=== PATIENT | male | born 1955 | race African-American/Black ===

== ENCOUNTER 2023-11-15 18:36 | Inpatient (IN) | payer MEDICARE, SELFPAY ==
[2023-11-15] VITALS (10 sets, daily range): BP systolic 114–134; BP diastolic 75–95; BMI 27.1
--- NOTE | 2023-11-15 14:45 | ED.GENMED ---
History of Present Illness
<Susan Hernández PA-C - Last Filed: 11/15/23 19:02>
General
Chief Complaint: Swelling
Source: patient
Exam Limitations: none
Time Seen by Provider: 11/15/23 14:19
Nursing documentation reviewed up to this point in time: agreed with
History of Present Illness
History of Present Illness:
Patient is a 68-year-old male presenting from [facility] for evaluation of progressively worsening abdominal distention over the past few weeks with associated shortness of breath. Patient denies any chest pain, fevers, chills. However he does
state that abdominal distention is bothersome and 'enough is enough'. Patient denies any nausea, vomiting, diarrhea, or constipation. No urinary symptoms. No fevers or chills.
Patient typically on approximately 2 L of oxygen via nasal cannula.
Patient does report a recent change in diuretic to torsemide. It appears that he takes 100 mg daily.
Review of Systems
<Susan Hernández PA-C - Last Filed: 11/15/23 19:02>
Review of Systems
Allergies reviewed?: Yes
All Other Systems: ROS reviewed and negative except as documented in HPI and ROS
Phy Exam
<Susan Hernández PA-C - Last Filed: 11/15/23 19:02>
Physical Exam
Physical Exam:
Vitals: Patient's vital signs are stable. Hypoxia requiring 4 L nasal cannula
General: Patient is well appearing, no acute distress.
Skin: Warm and dry, no rashes or lesions
Head: Normocephalic, atraumatic
Eyes: Sclera nonicteric. EOMs intact. No nystagmus.
Throat: Protecting airway
Neck: Normal ROM, no cervical spine tenderness, no meningismus. No JVD
Cardiac: Regular rate and rhythm, no murmurs.
Pulm: In no apparent respiratory distress. O2 saturation 96 on 4 L nasal cannula. Diminished breath sounds at b/l bases.
Abdomen: Moderate abdominal distention. Diffuse mild tenderness. No rebound tenderness or guarding.
Extremities: 1+ pitting edema of right lower extremity. Distal pulses intact to right lower extremity. Left lower extremity with BKA
Neuro: Grossly intact.
Psychiatric: Normal affect.
Scores
<Susan Hernández PA-C - Last Filed: 11/15/23 19:02>
Heart Failure Risk
Heart Failure Risk Score: Yes
History of Stroke or TIA: No
History of intubation for respiratory distress: No
Heart rate on ED arrival >/= 110: No
SaO2 <90% on arrival on room air: Yes
HR >/=110 during 3min walk test (or too ill to perform test): No
ECG has acute ischemic changes: No
Urea >/=12mmol/L (BUN 33.6mg/dL): Yes
Serum CO2>/=35mmol/L: No
Troponin I or T elevated to WA Level (0.4mg/dL): No
NT-proBNP >/=5,000ng/L (5,000pg/ml): Yes
HF Risk Score: 3
Admission Status: HIGH RISK 15.9% Consider SNF treatment or admission to hospital
Course
<Susan Hernández PA-C - Last Filed: 11/15/23 19:02>
Orders/Labs/Results
Orders:
Orders
11/15/23 14:41
Electrocardiogram (*1) Urgent
Reason for Study: Shortness of Breath
EKG- Treatment ONCE
CR Chest - 2 Views Urgent
Comment: hx CHF, abdominal distention
Reason For Exam: shortness of breath
US Abdomen Complete/Upper Urgent
Comment:
Reason For Exam: abdominal distention
11/15/23 15:07
Complete Blood Count/With Diff Urgent
Comprehensive Metabolic Panel Urgent
NT-proBNP Urgent
Troponin I Urgent
11/15/23 17:06
Aspirin Chewable [Low Strength Aspirin] 324 mg PO NOW STA
Furosemide [Lasix] 40 mg IV NOW STA
11/15/23 18:07
Admit/Transfer Patient As Directed
Co-Sign Provider:
Level of Care: Inpatient admission
Assign to:: Telemetry
Physician / Group: Philippe
Diagnosis: CHF
Reason for Telemetry: Acute Heart Failure
Date to Stop Telemetry: 11/18/23
Time to Stop Telemetry: 11:00
Reason for Hospitalization: IV diuretics, Paracentesis
Expected length of stay greater than two midnights?: Yes
ELOS- Estimated Length of Stay in days: 4
I certify the patient meets the requirements for IP care: Yes
PRN Pain Medication Management As Directed
May give lesser potent ordered pain med per pt: Yes
preference::
Protocol:: Medication orders for pain may be administered in a
manner that supports deferring to patient preference
when the pt is:
- Requesting an ordered lesser potent pain medication.
Least to most potent pain medications are defined
as: acetaminophen < NSAID < tramadol < opioids
(morphine, oxycodone, hydromorphone).
- Requesting a lesser dose of the same medication IF
ORDERED.
- Requesting a less intrusive route of administration
if both routes are prescribed by the provider (PO <
IV).
11/15/23 18:10
Code Status As Directed
Resuscitation Status: Do not resuscitate
Reached after discussion with pt or family/Healthcare POA: Yes
11/15/23 18:11
DNR Bracelet Application ONCE
11/15/23 22:00
Potassium Routine
Troponin I Q8H
11/16/23 06:00
Troponin I Q8H
11/18/23 11:00
DC Protocol for Telemetry ONCE
Abnormal Lab Results
11/15/23
15:07
RBC 4.04 L 10^6/uL
(4.70-6.10)
Hgb 10.6 L g/dL
(13.0-18.0)
Hct 35.8 L %
(39.0-52.0)
MCH 26.2 L pg
(27.0-31.0)
MCHC 29.6 L g/dL
(33.0-37.0)
RDW 18.9 H %
(11.5-14.5)
Plt Count 123 L 10^3/uL
(130-400)
MPV 11.4 H fL
(7.4-10.4)
Absolute Lymphs (auto) 0.7 L 10^3/uL
(1.2-3.4)
Neutrophils % 76.8 H %
(42.2-75.2)
Lymphocytes % 11.0 L %
(20.5-51.1)
Potassium 5.8 H mmol/L
(3.5-5.1)
BUN 82 H mg/dl
(9-20)
Creatinine 1.7 H mg/dL
(0.7-1.3)
Alkaline Phosphatase 387 H U/L
(38-126)
Troponin I 0.035 H* ng/ml
11/15/23 15:07
11/15/23 15:07
Vital Signs
Initial and Last Documented VS:
Initial Vital Signs
Temp Pulse Resp BP Pulse Ox
97.9 F 77 16 131/95 96
11/15/23 13:16 11/15/23 13:16 11/15/23 13:16 11/15/23 13:16 11/15/23 13:16
Last Documented Vital Signs
Temp Pulse Resp BP Pulse Ox
97.9 F 77 16 122/84 96
11/15/23 13:16 11/15/23 13:16 11/15/23 13:16 11/15/23 18:11 11/15/23 13:16
<Chelsie Her MD - Last Filed: 11/15/23 17:07>
Orders/Labs/Results
Orders:
Orders
11/15/23 14:41
Electrocardiogram (*1) Urgent
Reason for Study: Shortness of Breath
EKG- Treatment ONCE
CR Chest - 2 Views Urgent
Comment: hx CHF, abdominal distention
Reason For Exam: shortness of breath
US Abdomen Complete/Upper Urgent
Comment:
Reason For Exam: abdominal distention
11/15/23 15:07
Complete Blood Count/With Diff Urgent
Comprehensive Metabolic Panel Urgent
NT-proBNP Urgent
Troponin I Urgent
11/15/23 17:06
Aspirin Chewable [Low Strength Aspirin] 324 mg PO NOW STA
Furosemide [Lasix] 40 mg IV NOW STA
11/15/23 18:07
Admit/Transfer Patient As Directed
Co-Sign Provider:
Level of Care: Inpatient admission
Assign to:: Telemetry
Physician / Group: Philippe
Diagnosis: CHF
Reason for Telemetry: Acute Heart Failure
Date to Stop Telemetry: 11/18/23
Time to Stop Telemetry: 11:00
Reason for Hospitalization: IV diuretics, Paracentesis
Expected length of stay greater than two midnights?: Yes
ELOS- Estimated Length of Stay in days: 4
I certify the patient meets the requirements for IP care: Yes
PRN Pain Medication Management As Directed
May give lesser potent ordered pain med per pt: Yes
preference::
Protocol:: Medication orders for pain may be administered in a
manner that supports deferring to patient preference
when the pt is:
- Requesting an ordered lesser potent pain medication.
Least to most potent pain medications are defined
as: acetaminophen < NSAID < tramadol < opioids
(morphine, oxycodone, hydromorphone).
- Requesting a lesser dose of the same medication IF
ORDERED.
- Requesting a less intrusive route of administration
if both routes are prescribed by the provider (PO <
IV).
11/15/23 18:10
Code Status As Directed
Resuscitation Status: Do not resuscitate
Reached after discussion with pt or family/Healthcare POA: Yes
11/15/23 18:11
DNR Bracelet Application ONCE
11/15/23 22:00
Potassium Routine
Troponin I Q8H
11/16/23 06:00
Troponin I Q8H
11/18/23 11:00
DC Protocol for Telemetry ONCE
Abnormal Lab Results
11/15/23
15:07
RBC 4.04 L 10^6/uL
(4.70-6.10)
Hgb 10.6 L g/dL
(13.0-18.0)
Hct 35.8 L %
(39.0-52.0)
MCH 26.2 L pg
(27.0-31.0)
MCHC 29.6 L g/dL
(33.0-37.0)
RDW 18.9 H %
(11.5-14.5)
Plt Count 123 L 10^3/uL
(130-400)
MPV 11.4 H fL
(7.4-10.4)
Absolute Lymphs (auto) 0.7 L 10^3/uL
(1.2-3.4)
Neutrophils % 76.8 H %
(42.2-75.2)
Lymphocytes % 11.0 L %
(20.5-51.1)
Potassium 5.8 H mmol/L
(3.5-5.1)
BUN 82 H mg/dl
(9-20)
Creatinine 1.7 H mg/dL
(0.7-1.3)
Alkaline Phosphatase 387 H U/L
(38-126)
Troponin I 0.035 H* ng/ml
11/15/23 15:07
11/15/23 15:07
Vital Signs
Initial and Last Documented VS:
Initial Vital Signs
Temp Pulse Resp BP Pulse Ox
97.9 F 77 16 131/95 96
11/15/23 13:16 11/15/23 13:16 11/15/23 13:16 11/15/23 13:16 11/15/23 13:16
Last Documented Vital Signs
Temp Pulse Resp BP Pulse Ox
97.9 F 77 16 122/84 96
11/15/23 13:16 11/15/23 13:16 11/15/23 13:16 11/15/23 18:11 11/15/23 13:16
<Susan Hernández PA-C - Last Filed: 11/15/23 19:02>
MDM/Problems Addressed
Differential Diagnosis Includes:
Not limited to: CHF, cirrhosis, cardiac arrhythmia, anemia, dehydration, pneumonia, bronchitis, doubt ACS
MDM/Problems Addressed:
68-year-old male with history as documented presenting with progressively worsening abdominal distention associated with shortness of breath over the past few weeks. No fever, chills or infectious symptoms. No exertional chest pain. Does have
history of CHF and on 2 L O2 at home, [facility]. Recent switch in diuretic from Lasix to torsemide. Patient requiring 4 L nasal cannula on arrival to emergency department increased from baseline. Otherwise vital signs are stable. Physical
exam as above. He does have pitting edema in his right lower extremity with great distal pulses. Moderate distention of abdomen. Lung sounds slightly diminished at the bases although appears in no apparent respiratory distress. Heart regular
rate and rhythm. EKG obtained to triage shows no acute ischemic changes.
Labs reviewed. Mild anemia with a hemoglobin of 10.6�no comparison. Creatinine of 1.7. Initial troponin was elevated to 0.035. BNP greater than 27,000. Chest x-ray shows mild CHF with left-sided pleural effusion. Diffuse abdominal ascites seen
on abdominal ultrasound. Suspect ascites likely related to heart failure as patient has no history of liver disease. May require paracentesis. Given patient's clinical fluid overload, hypoxia with increased oxygen requirement suspect likely acute
CHF exacerbation. Will diurese with 40 mg IV Lasix given mild renal insufficiency noted. 324 aspirin were given given patient's elevated Trope although do not suspect ACS. Will admit to hospitalist for further evaluation/fluid management.
Patient discussed with hospitalist and accepted to their service. Patient seen with attending physician.
Chronic conditions affecting care:
CHF, CAD, diabetes
Acute Exacerbation and/or Progression of Chronic Illness:
Acute CHF exacerbation with increased O2 requirement
<Susan Hernández PA-C - Last Filed: 11/15/23 19:02>
*Radiology
Radiology exam reviewed: preliminary read by ED provider and radiology read reviewed (Mild CHF)
*Pulse Oximetry
Patient hypoxic: yes
Comment: On 4 L NC
*EKG
Interpreted by ED Provider?: Yes
EKG Intrepretation Date: 11/15/23
Interpretation: abnormal
Comparison EKG: no comparison EKG present
Heart Rate: 68
Rate: normal
Rhythm: sinus
Interval: first degree heart block
QRS Pattern: low voltage
Ischemia: non-specific ST changes
*Negotiations Director Interpretation
Rate: normal
Interpretation: normal
Heart Rate: 80
Rhythm: sinus
*Critical Care Note
Total Time (30-74mins, 75-104mins- exclusive of procedures): Not Applicable
<Susan Hernández PA-C - Last Filed: 11/15/23 19:02>
Patient Management
Discussion with other providers: Hospitalist
Escalation/DeEscalation of care consider admission/obs:
Admit for diuresis/further management of fluid status may require paracentesis
ED Attending Note
<Susan Hernández PA-C - Last Filed: 11/15/23 19:02>
-
Portions of this chart may have been created with voice recognition software.� Occasional wrong word or��sound alike� substitutions may have occurred due to the inherent limitations of voice recognition software.
<Chelsie Her MD - Last Filed: 11/15/23 17:07>
ED Attending Note
Patient seen and examined by attending physician: Yes
I performed the substantive portion of visit, reviewed & personally made and approve the management plan that is documented in note by myself or ZEESHAN.: Yes
ED Attending Note:
68-year-old male with gradual increasing abdominal distention and fullness over the past few weeks making it now hard for him to take a deep breath because of the volume. He has noted to have an increasing oxygen requirement. He denies abdominal
pain and abdomen soft and nontender. Patient has obvious lower extremity edema, and noted here to have an elevated BNP and troponin, no priors for comparison. No history of liver disease noted, ascites likely related to his heart failure. Reports
recent change in his diuretic dose. No acute ischemia noted on ECG. Recommend admission, management with diuresis May need paracentesis, etc.
Discharge Plan
Departure
Patient Disposition: Admit
Date of Disposition: 11/15/23
Time of Disposition: 17:07
Presentation/result/management discussed w/ accepting MD/DO: Hospitalist
Discharge Problem:
Acute CHF (congestive heart failure), Hypoxia
Interventions
Interventions:
*Risk Screen - Suicide Last Done: 11/15/23 13:16
*General Assessment Last Done: 11/15/23 13:16
*Neglect/Abuse Screening Last Done: 11/15/23 13:16
*ED COVID-19 Vaccine History Last Done: 11/15/23 13:25
[2023-11-15 15:29] LABS: % Basophils 0.7 % (0-2); % Eosinophils 1.9 % (0-6); % Immature Granulocytes 0.3 % (0-0.5); % Monocytes 9.3 % (1.7-9.3); % Neutrophils 76.8 % (42.2-75.2); Absolute Eosinophils 0.1 10^3/uL (0-0.7); Absolute Lymphocytes 0.7 10^3/uL (1.2-3.4); Absolute Monocytes 0.6 10^3/uL (0.1-0.6); Absolute Neutrophils 4.5 10^3/uL (1.4-6.5); Hematocrit 35.8 % (39.0-52.0); Hemoglobin 10.6 g/dL (13.0-18.0); Mean Corp Hgb Conc. 29.6 g/dL (33.0-37.0); Mean Corpuscular Hgb 26.2 pg (27.0-31.0); Mean Corpuscular Volume 88.6 fL (80.0-94.0); Mean Platelet Volume 11.4 fL (7.4-10.4); Nucleated Red Blood Cells % 0 % (-); Platelet Count 123 10^3/uL (130-400); Red Blood Cell Count 4.04 10^6/uL (4.70-6.10); Red Cell Dist. Width 18.9 % (11.5-14.5); White Blood Cell Count 5.9 10^3/uL (4.8-10.8)
[2023-11-15 15:54] LABS: NT-proBNP > 27000 pg/ml; Troponin I 0.035 ng/ml
[2023-11-15 16:16] LABS: ALT (SGPT) 17 U/L (0-50); AST (SGOT) 39 U/L (17-59); Albumin 3.9 g/dl (3.5-5.0); Alkaline Phosphatase 387 U/L (38-126); Blood Urea Nitrogen 82 mg/dl (9-20); Calcium 8.9 mg/dl (8.4-10.2); Carbon Dioxide 29 mmol/L (22-30); Chloride 104 mmol/L (98-107); Estimated Creatinine Clearance 41 ml/min; Glucose 72 mg/dl (70-99); Potassium 5.8 mmol/L (3.5-5.1); Sodium 143 mmol/L (135-145); Total Bilirubin 1.1 mg/dl (0.2-1.3); Total Protein 7.2 g/dl (6.3-8.2)
--- NOTE | 2023-11-15 17:16 | W.PN.UPDATE ---
Addendum entered and electronically signed by Lisa Paez MD 11/15/23 18:37:
BGL 72 in ER, will hold pre-meal insulin for now and give lower lantus dose this evening - adjust as needed during hospital stay
Original Note:
Update Note
Progress Note Update
This is an addendum to H&P written by NII Isbell
I saw and examined the patient.
The GUT SORTER's note was reviewed and I agree with the note.
Comment:
Mr. Wale Espinosa is a 68 yo man with hx HF, CAD, HLD, CKD, ex-smoker, GERD, left BKA, IDDM presents to the ER with bloating.
Triage VS: T 97.9, P 77, RR 16, BP 131/95, SpO2 96%
LABS: WBC 5.9, Hg 10.6, PLT 123, Na 143, K+ 5.8, Cr 1.7, Glucose 72, T. Bili 1.1, AST 39, ALT 17, Alk Phos 387, Trop 0.035
BNP > 47453
On exam patient is frail appearing and tachypneic, + JVP, decreased breath sounds. Left BKA. RLE with venous stasis discoloration. + blind.
Abdomen US:
IMPRESSION:
1. Cholelithiasis without convincing sonographic evidence for acute cholecystitis. Consider further evaluation with HIDA scan if there is high clinical concern.
2. Moderate diffuse abdominopelvic ascites.
CXR
IMPRESSION:
Mild CHF with small to moderate left pleural effusion and associated probable atelectasis.
MAR: asa 324mg PO x 1, Lasix 40mg IV x 1
Heart Failure, Unknown EF
-He is on Torsemide 60 qAM; 40qPM at home
-admit to telemetry
-s/p Lasix 40mg IV in ER, likely needs higher dose. PA to check on output later this evening and possibly give additional
-lasix 80mg IV BID starting tomorrow
-TTE
-Cardiology consult
-fluid restriction, low Na diet
CKD
-expect creatinine at baseline
Hyperkalemia
-should improve with Lasix, repeat this evening
-low K diet
Ascites
-IR consult for paracentesis; follow up fluid analysis
IDDM
-TERRAZZO JOURNEYMAN insulin
DNR
--- NOTE | 2023-11-15 18:07 | HPS.HSE ---
Family Physician
-
Family Physician: Hai Sorensen
Chief Complaint
-
Increasing Abdominal Distention
History of Present Illness
Pt is a 68 yo M with PMH CHF (unknown type), CAD, DM, and CKD from [facility] c/o increased abdominal swelling x 5 weeks. Pt reports increased abdominal swelling attributed to CHF. He reports weight change from 140 to 190 lbs and states
his condition is getting worse every day- 'it's uncomfortable','enough is enough', and 'doesn't want to do this anymore'. Pt reports he was previously on furosemide and switched to torsemide roughly 1 week ago. He notes increased urination but no
significant change in weight. He does not follow low Na diet or fluid restriction. He states he recently changed drinking orange/apple juice to vegetable juice at breakfast. He reports paracentesis performed last year removed 6.5 quarts of fluid. He
also reports increasing SOB x 1.5 wks when he weighed about 165lbs. He denies fever, chest pain, palpitations, and cough.
Medical History
Past Medical History
Past Medical History: Reports Other
Additional Past Medical History:
Coronary Artery Disease
Peripheral Vascular Disease
Cardiomyopathy
Congestive Heart Failure
Essential Hypertension
Hyperlipidemia
Diabetes Mellitus, Type II
CKD Stage IIIB
Chronic Anemia
GERD
Past Surgical History: Reports Other
Additional Past Surgical History:
Left BKA
Social History
Tobacco: Non-smoker
Alcohol: None
Living: Longterm
Family History
Family History: Not pertinent
Allergies / Home Medications
Allergies reflects when Allergies were last updated in [employer].
Home Medications with original date entered in [employer]
Allergy/Medication List:
Allergies
Allergy/AdvReac Type Severity Reaction Status Date / Time
No Known Allergies Allergy Unverified 11/15/23 13:15
Home Medications
acetaminophen 325 mg tablet 650 mg PO Q6HPRN PRN mild pain 11/15/23
atorvastatin 20 mg tablet 20 mg PO DAILY 11/15/23
bisacodyl 10 mg rectal suppository (Dulcolax (bisacodyl)) 10 mg NM DAILYPRN PRN no bm after mom 11/15/23
cholecalciferol (vitamin D3) 25 mcg (1,000 unit) tablet (Vitamin D3) 25 mcg PO DAILY 11/15/23
diclofenac sodium 1 % topical gel 2 g topical DAILY 11/15/23
docusate sodium 100 mg capsule (Colace) 100 mg PO DAILY 11/15/23
ferrous sulfate 325 mg (65 mg iron) tablet 325 mg PO DAILY 11/15/23
insulin aspart (niacinamide) (U-100) 100 unit/mL subcutaneous solution (Fiasp U-100 Insulin) 8 unit SC MEALS 11/15/23
insulin glargine 100 unit/mL (3 mL) subcutaneous pen (Basaglar KwikPen U-100 Insulin) 10 unit SC HS 11/15/23
magnesium hydroxide 400 mg/5 mL oral suspension (Milk of Magnesia) 30 ml PO [id number] PRN no bm 3 days 11/15/23
melatonin 3 mg tablet 3 mg PO HS 11/15/23
metoprolol succinate 25 mg tablet,extended release 24 hr 25 mg PO DAILY 11/15/23
omeprazole 20 mg capsule,delayed release 20 mg PO DAILY 11/15/23
povidone-iodine 10 % topical solution (Betadine) 1 applic topical DAILY R 2nd toe 11/15/23
sennosides 8.6 mg-docusate sodium 50 mg tablet 2 tab-cap PO HS 11/15/23
sodium phosphates 19 gram-7 gram/118 mL enema (Fleet Enema) 118 ml NM DAILYPRN PRN if no bm after dulcolax 11/15/23
torsemide 20 mg tablet 40 mg PO QPM 11/15/23
torsemide 20 mg tablet 60 mg PO DAILY 11/15/23
trazodone 100 mg tablet 100 mg PO HS 11/15/23
trazodone 50 mg tablet 25 mg PO HS 11/15/23
Review of Systems
-
A 12 point ROS was completed and negative except as noted: Yes
Constitutional: Denies Fever or Chills
Respiratory: Reports Trouble Breathing
Cardiac: Denies Chest Pain or Palpitations
Abdomen/GI: Denies Abdominal Pain, Nausea, Vomiting or Diarrhea
Physical Exam
Vital Signs
Vital Signs
Temp Pulse Resp BP Pulse Ox
97.9 F 77 16 131/95 96
11/15/23 13:16 11/15/23 13:16 11/15/23 13:16 11/15/23 13:16 11/15/23 13:16
Physical Exam
General: Comfortable and Conversant
HEENT: Anicteric and Moist mucous membranes
Respiratory: Non Labored Respirations and Other (Decreased breath sounds bilateral bases)
Cardiac: S1/S2 and Regular Rhythm; No Murmur
GI: Soft, Non Tender and Distended
Rectal: Deferred by Provider
Musculoskeletal: No Clubbing, No Cyanosis and Other (Left BKA)
Skin: Warm and Dry
Neuro: Awake, Alert, Oriented and Nonfocal/grossly intact
Psych: Calm
Laboratory Results
-
11/15/23 15:07
Laboratory Results
Total Bilirubin 1.1 mg/dl (0.2-1.3) 11/15/23 15:07
AST 39 U/L (17-59) 11/15/23 15:07
ALT 17 U/L (0-50) 11/15/23 15:07
Alkaline Phosphatase 387 U/L (38-126) H 11/15/23 15:07
Troponin I 0.035 ng/ml H* 11/15/23 15:07
Chest X-Ray:
Mild CHF with small to moderate left pleural effusion and associated probable atelectasis.
Abd Us:
Moderate diffuse abdominopelvic ascites.
Cholelithiasis without convincing sonographic evidence for acute cholecystitis.
Data Reviewed
-
Diagnostic Radiology: Report Reviewed by me
Medical Tests (Nuc Med, Echo, EKG etc): Report Reviewed by me
Lab Data: Labs Reviewed by me
Impression/Plan
-
Acute on Chronic Heart Failure, unknown type
-Consult Cardiology
-Check Echo
-Continue Lasix 80mg IV BID
-Continue low sodium diet with fluid restriction
-Monitor Is&Os and Daily Weights
Elevated Troponin, likely Non-Ischemic Myocardial Injury in setting of heart failure
-Continue to trend troponin
Ascites, likely secondary to heart failure
-Consult IR for paracentesis
Hyperkalemia
-Continue Lasix
-Continue low potassium diet
-Recheck potassium level later this evening
Coronary Artery Disease
Peripheral Vascular Disease s/p Left BKa
-Continue Aspirin
Essential Hypertension
-Continue metoprolol
Hyperlipidemia
-Continue atorvastatin
Diabetes Mellitus, Type II
-Continue Basaglar and Insulin Aspart
-Monitor sugars and continue coverage insulin
CKD Stage IIIB
-Suspect Creatinine is at baseline
-Monitor Creatinine closely while on diuretics
Chronic Anemia
-Continue iron supplement
Insomnia
-Continue Trazodone and Melatonin
GERD
-Continue Protonix
DVT proph: SC Heparin
Code Status: DNR
[2023-11-15] MEDS: LASIX 40 MG IV (18:11)
--- NOTE | 2023-11-15 20:15 | SUR.OPER ---
Patient arrived from ED via stretcher. Pulled over onto the bed by staff. AAOx3, VSS. 96% on 3L O2. Patient incontinent of urine. Oriented to the room and list of medications. Call danielle is within reach.
[2023-11-15 21:32] LABS: Glucose - Point of Care 89 mg/dl (70-99)
[2023-11-15] MEDS: SENOKOT-S 1 TABLET PO (22:05)
[2023-11-15] MEDS: MELATONIN 3 MG PO (22:05)
[2023-11-15] MEDS: DESYREL 25 MG PO (22:05)
[2023-11-15] MEDS: DESYREL 100 MG PO (22:05)
[2023-11-15] MEDS: LANTUS SC (22:05)
[2023-11-15] MEDS: TYLENOL 650 MG PO (22:07)
[2023-11-15] MEDS: HEPARIN 5000 UNITS SC (23:00)
[2023-11-16] VITALS (8 sets, daily range): BP systolic 58–121; BP diastolic 65–77; BMI 27.1
[2023-11-16 00:11] LABS: Potassium 5.6 mmol/L (3.5-5.1)
[2023-11-16 00:13] LABS: Troponin I 0.039 ng/ml
[2023-11-16] MEDS: LOKELMA 10 GRAM PO (00:50)
[2023-11-16] MEDS: TYLENOL 1000 MG PO (04:30)
[2023-11-16] MEDS: DICLOFENAC 1% TOPICAL GEL 100 GRAM TOPICAL (04:30)
[2023-11-16 05:20] LABS: INR 1.32; PT 16.2 Sec (11.4-14.6)
[2023-11-16 05:30] LABS: Blood Urea Nitrogen 82 mg/dl (9-20); Calcium 8.6 mg/dl (8.4-10.2); Carbon Dioxide 32 mmol/L (22-30); Chloride 104 mmol/L (98-107); Estimated Creatinine Clearance 44 ml/min; Glucose 90 mg/dl (70-99); HDL Cholesterol 62 mg/dl; Iron 44 ug/dl (49-181); LDL Cholesterol, Calculated 35 mg/dl; Magnesium 2.5 mg/dl (1.6-2.3); Phosphorus 4.6 mg/dl (2.5-4.5); Sodium 144 mmol/L (135-145); Total Cholesterol 112 mg/dl (50-199); Triglyceride 78 mg/dl (10-149); Very Low Density Lipoprotein 15 mg/dl (0-30); eGFR 46.35
[2023-11-16 05:33] LABS: Troponin I 0.032 ng/ml
[2023-11-16 05:38] LABS: Percent Saturation 22 % (20-50); Total Iron Binding Capacity 199 ug/dl (261-462)
[2023-11-16 05:40] LABS: Potassium 5.3 mmol/L (3.5-5.1)
[2023-11-16 05:44] LABS: Hematocrit 35.8 % (39.0-52.0); Hemoglobin 10.6 g/dL (13.0-18.0); Mean Corp Hgb Conc. 29.6 g/dL (33.0-37.0); Mean Corpuscular Volume 91.3 fL (80.0-94.0); Red Blood Cell Count 3.92 10^6/uL (4.70-6.10); Red Cell Dist. Width 18.8 % (11.5-14.5); White Blood Cell Count 5.1 10^3/uL (4.8-10.8)
[2023-11-16 05:53] LABS: TSH Reflex To Free T4 0.75 uIU/ml (0.47-4.68)
[2023-11-16 06:28] LABS: Folate 6.8 ng/ml (2.76-20); Vitamin B12 950 pg/ml (239-931)
[2023-11-16 06:47] LABS: Mean Platelet Volume 9.9 fL (7.4-10.4); Platelet Count 91 10^3/uL (130-400)
[2023-11-16] MEDS: COLACE 100 MG PO (09:11)
[2023-11-16] MEDS: FEOSOL 325 MG PO (09:13)
[2023-11-16] MEDS: TOPROL XL 25 MG PO (09:13)
[2023-11-16] MEDS: ASPIR LOW (ENTERIC COATED) 81 MG PO (09:13)
[2023-11-16] MEDS: LIPITOR 20 MG PO (09:13)
[2023-11-16 09:14] LABS: Glucose - Point of Care 77 mg/dl (70-99)
[2023-11-16] MEDS: VITAMIN D3 (cholecalciferol) 25 MCG PO (09:14)
[2023-11-16] MEDS: NOVOLOG FLEXPEN-LOW RESISTANCE SC ×2 (09:14→12:56)
[2023-11-16] MEDS: HEPARIN 5000 UNITS SC ×3 (09:14→21:29)
[2023-11-16] MEDS: TYLENOL 650 MG PO ×2 (09:16→22:46)
--- NOTE | 2023-11-16 09:18 | W.PN.HOSP.TC ---
Today's Communication/Plan
-
diuresis
TTE
Cardiology consult
Assessment / Plan
Assessment / Plan
Mr. Wale Espinosa is a 68 yo man with hx HF, CAD, HLD, CKD, ex-smoker, GERD, left BKA, IDDM presents to the ER with fluid overload, admitted for CHF exacerbation.
Abdomen US:
IMPRESSION:
1. Cholelithiasis without convincing sonographic evidence for acute cholecystitis. Consider further evaluation with HIDA scan if there is high clinical concern.
2. Moderate diffuse abdominopelvic ascites.
CXR
IMPRESSION:
Mild CHF with small to moderate left pleural effusion and associated probable atelectasis.
Acute on Chronic Heart Failure, unknown type
-Consult Cardiology
-Check Echo
-Continue Lasix - patient with good response to 40 --> will continue this dosing
-Continue low sodium diet with fluid restriction
-Monitor Is&Os and Daily Weights
Elevated Troponin, likely Non-Ischemic Myocardial Injury in setting of heart failure
-peaked at 0.039
Ascites, likely secondary to heart failure
-Consult IR for paracentesis
Hyperkalemia
-Continue Lasix
-Continue low potassium diet
-improving with lasix
Coronary Artery Disease
Peripheral Vascular Disease s/p Left BKa
-Continue Aspirin
Essential Hypertension
-Continue metoprolol
Hyperlipidemia
-Continue atorvastatin
Diabetes Mellitus, Type II
-hold pre-meal (glucose 90 this AM)
-lower dose Lantus
CKD Stage IIIB
-Suspect Creatinine is at baseline
-Monitor Creatinine closely while on diuretics
Chronic Anemia
-Continue iron supplement
Insomnia
-Continue Trazodone and Melatonin
GERD
-Continue Protonix
DVT proph: SC Heparin
Code Status: DNR
Anticipated Discharge: > 48 hours
Subjective/Interval History
-
Date of Service: November 16, 2023
feeling better
more alert today
urinated a lot overnight per RN
Objective Data
-
Labs:
Laboratory Results
11/15/23 11/16/23
23:35 04:23
WBC 5.1
Hgb 10.6 L
Hct 35.8 L
Plt Count 91 L D
PT 16.2 H
INR 1.32
Sodium 144
Potassium 5.6 H 5.3 H
Chloride 104
Carbon Dioxide 32 H
BUN 82 H
Creatinine 1.6 H
Glucose 90
Calcium 8.6
Vital Signs:
Vital Signs
Temp Pulse Resp BP Pulse Ox
96.3 F L 69 20 121/70 97
11/16/23 07:16 11/16/23 07:16 11/16/23 07:16 11/16/23 07:16 11/16/23 07:16
I&O
11/15/23 11/16/23 11/17/23
06:59 06:59 06:59
Intake Total 530 / 530
Balance 530 / 530
Review of Systems
-
History Source: Patient
All other systems: Reviewed and negative
Physical Exam
-
General: No Apparent Distress
HEENT: Other (blind)
Respiratory: Rales
Cardiac: Regular Rhythm and S1/S2
GI: Soft and Nontender
Musculoskeletal: Other (left BKD)
Skin: Warm and Dry; Negative Rash
Neuro: AO x 3
Psych: Calm
Data Reviewed
-
Diagnostic Radiology: Report Reviewed by me
Labs: Labs Reviewed by me
--- NOTE | 2023-11-16 09:29 | CON.CAR ---
Addendum entered and electronically signed by Faisal Yadav MD 11/16/23 16:04:
I saw and examined the patient.
The PGY2 note was reviewed and I agree with the note.
Primary dough panner is at [facility]
68-year-old with history of coronary artery disease, cardiomyopathy, CHF, peripheral arterial disease, left BKA, diabetes, CKD, hypertension patient presents with shortness of breath. Apparently send increased shortness of breath over a 5-week
time. He has also had increased abdominal distention and weight gain. Patient admitted to the hospital service. Noted to have ascites also with left pleural effusion. He is undergone paracentesis with removal of significant volume and
significant improvement in his shortness of breath. Patient states that he had to have paracentesis in the past but last one was many years ago. He has been taking diuretics as an outpatient recently Lasix was changed to torsemide 1 week ago but
no improvement of symptoms. Other extent of his heart disease is unclear. Patient does not provide that much of a detailed account of his history and no prior records available.
#Shortness of breath. May be multifactorial. Patient has a prior history of CHF which may be contributing but patient also has significant ascites. Although heart failure can contribute to ascites would also consider other causes as well.
Patient's had significant proved and after paracentesis
-Continue diuresis with IV Lasix
-Echocardiogram
-Obtain additional records from previous outpatient dough panner
-Continue to monitor left pleural effusion.
# Ascites.-Patient post paracentesis. Additional evaluation of progress. Also will be of helpful to obtain additional old records since it sounds as if he has had paracentesis in the past
# Pleural effusion. Monitor with diuresis.
# CKD. Creatinine 1.6-1.7. Continue to monitor with diuretic.
# CAD. No symptoms to suggest angina. Patient with prior history of CAD. Will obtain additional records
Original Note:
Consultation
Consultation Request
Date/Time Consultation Requested: 11/15/2023
Date/Time Consultation Performed: 11/16/2023
Performing Provider: Dr Yadav
Reason for Consultation: CHF
Medical History
-
Chief Complaint: Abdominal swelling, shortness of breath
History of Present Illness:
Mr Jesús Echevarria is a 68y/o male who presented to ED yesterday complaining of increased abdominal swelling ongoing for the past 5 weeks. Patient reports he was previously on furosemide and was switched to torsemide 1 week ago. He has noted
changes in his weight and increased urination since the switch. Patient reports ongoing shortness of breath for the past 2 weeks. Reports shortness of breath has been worsening at rest and with exertion. He denies chest pain, he denies fever, he
denies chills, he denies palpitations. Patient reports paracentesis performed a total of 2 times in the past 10 years with the most recent tap in 2009 removing 6 quarts of fluid. Evaluation with a chest x-ray on presentation to the ED showed mild
CHF with small to moderate left pleural effusion. Abdominal ultrasound evaluation showed moderate diffuse abdominal pelvic ascites. proBNP >14476, troponin 0.035.
Past Medical History
Past Medical History: Other (CAD, PVD, cardiomyopathy, CHF, essential hypertension, hyperlipidemia, type II DM, CKD stage IIIb, chronic anemia, GERD)
Past Surgical History: Other
Social History
Alcohol: None
Living: Prison
Family History
Family History: Reviewed & Not Pertinent
Allergies / Home Medications
Allergy/AdvReac Type Severity Reaction Status Date / Time
No Known Allergies Allergy Unverified 11/15/23 13:15
�Medication �Instructions �Recorded �Confirmed �Type
acetaminophen 325 mg tablet 650 mg PO Q6HPRN PRN mild pain 11/15/23 11/15/23 History
atorvastatin 20 mg tablet 20 mg PO DAILY 11/15/23 11/15/23 History
bisacodyl 10 mg rectal suppository 10 mg MA DAILYPRN PRN no bm after 11/15/23 11/15/23 History
(Dulcolax (bisacodyl)) mom
cholecalciferol (vitamin D3) 25 25 mcg PO DAILY 11/15/23 11/15/23 History
mcg (1,000 unit) tablet (Vitamin
D3)
diclofenac sodium 1 % topical gel 2 g topical DAILY 11/15/23 11/15/23 History
docusate sodium 100 mg capsule 100 mg PO DAILY 11/15/23 11/15/23 History
(Colace)
ferrous sulfate 325 mg (65 mg 325 mg PO DAILY 11/15/23 11/15/23 History
iron) tablet
insulin aspart (niacinamide) 8 unit SC MEALS 11/15/23 11/15/23 History
(U-100) 100 unit/mL subcutaneous
solution (Fiasp U-100 Insulin)
insulin glargine 100 unit/mL (3 10 unit SC HS 11/15/23 11/15/23 History
mL) subcutaneous pen (Basaglar
KwikPen U-100 Insulin)
magnesium hydroxide 400 mg/5 mL 30 ml PO [id number] PRN no bm 3 days 11/15/23 11/15/23 History
oral suspension (Milk of Magnesia)
melatonin 3 mg tablet 3 mg PO HS 11/15/23 11/15/23 History
metoprolol succinate 25 mg 25 mg PO DAILY 11/15/23 11/15/23 History
tablet,extended release 24 hr
omeprazole 20 mg capsule,delayed 20 mg PO DAILY 11/15/23 11/15/23 History
release
povidone-iodine 10 % topical 1 applic topical DAILY R 2nd toe 11/15/23 11/15/23 History
solution (Betadine)
sennosides 8.6 mg-docusate sodium 2 tab-cap PO HS 11/15/23 11/15/23 History
50 mg tablet
sodium phosphates 19 gram-7 118 ml MA DAILYPRN PRN if no bm 11/15/23 11/15/23 History
gram/118 mL enema (Fleet Enema) after dulcolax
torsemide 20 mg tablet 40 mg PO QPM 11/15/23 11/15/23 History
torsemide 20 mg tablet 60 mg PO DAILY 11/15/23 11/15/23 History
trazodone 100 mg tablet 100 mg PO HS 11/15/23 11/15/23 History
trazodone 50 mg tablet 25 mg PO HS 11/15/23 11/15/23 History
Review of Systems
-
All other systems: Negative unless noted
Physical Exam
Vital Signs
Temp Pulse Resp BP Pulse Ox
96.3 F L 69 20 121/70 97
11/16/23 07:16 11/16/23 07:16 11/16/23 07:16 11/16/23 07:16 11/16/23 07:16
Lab Results
11/16/23 04:23
11/16/23 04:23
Troponin I 0.032 ng/ml 11/16/23 04:23
Jdc-G-Rnbrnuybuzj Pept > 45118 pg/ml 11/15/23 15:07
Physical Exam
General: No Apparent Distress
HEENT: Other (Left-sided complete blindness, right-sided partial blindness)
Respiratory: Crackles (Mild)
Cardiac: S1/S2 and Regular Rhythm; Negative Murmur
Musculoskeletal: Other (Left sided below the knee amputation)
Skin: Warm and Dry
Neuro: Awake, Alert, Oriented and AO x 3
Impression / Plan
-
Impression/plan
Acute CHF, unknown EF
-Diuresis with IV Lasix
-Echo pending
-Will request for records from current dough panner at [facility]
-Monitor I's and O's, daily weights
CAD
History of PVD s/p left-sided below-knee amputation
-Continue aspirin
Essential hypertension
-Continue on metoprolol XL
Ascites
-Paracentesis
-Management per primary team
[2023-11-16] MEDS: LASIX 40 MG IV ×2 (09:56→17:17)
[2023-11-16 12:50] LABS: Body Fluid Mononuclear 81.9 %; Body Fluid Polymorphonuclear 18.1 %; Body Fluid WBC 94 /CUMM
[2023-11-16 12:53] LABS: Glucose - Point of Care 88 mg/dl (70-99)
[2023-11-16 13:04] LABS: Body Fluid Albumin 2.2 g/dl; Body Fluid Amylase 60 U/L; Body Fluid LDH 183 U/L; Body Fluid Protein 4.4 g/dl; Body Fluid Second Tech AMA
--- NOTE | 2023-11-16 16:01 | CM ---
Addendum entered by Annette Ramírez 11/17/23 15:27:
Advance Directive form left at bedside; no family present today and have not been able to speak with anyone. [facility] [place] advised that they have a POLST form on his chart.
Original Note:
CM made several attempts today to discuss AD; pt has been off the floor for testing most of the day. He just returned and no family is present. Will f/u in AM.
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
CM will continue to follow; plan to follow up with Wale and family tomorrow to discuss advance directive.
[2023-11-16 17:08] LABS: Glucose - Point of Care 169 mg/dl (70-99)
[2023-11-16] MEDS: NOVOLOG FLEXPEN-LOW RESISTANCE 1 UNITS SC (18:00)
[2023-11-16 21:14] LABS: Glucose - Point of Care 126 mg/dl (70-99)
[2023-11-16] MEDS: MELATONIN 3 MG PO (21:28)
[2023-11-16] MEDS: DESYREL 100 MG PO (21:28)
[2023-11-16] MEDS: DESYREL 25 MG PO (21:28)
[2023-11-16] MEDS: SENOKOT-S PO (21:33)
[2023-11-16] MEDS: LANTUS 0.06 UNITS SC (21:38)
[2023-11-17] VITALS (8 sets, daily range): BP systolic 99–117; BP diastolic 56–77; PULSE 68; O2SAT 95; BMI 25.5
[2023-11-17 04:24] LABS: Glucose - Point of Care 95 mg/dl (70-99)
[2023-11-17 07:57] LABS: Blood Urea Nitrogen 81 mg/dl (9-20); Calcium 8.2 mg/dl (8.4-10.2); Carbon Dioxide 32 mmol/L (22-30); Chloride 102 mmol/L (98-107); Estimated Creatinine Clearance 41 ml/min; Glucose 108 mg/dl (70-99); Potassium 5.2 mmol/L (3.5-5.1); Sodium 140 mmol/L (135-145)
[2023-11-17 08:10] LABS: Glucose - Point of Care 111 mg/dl (70-99)
[2023-11-17] MEDS: NOVOLOG FLEXPEN-LOW RESISTANCE SC (08:14)
[2023-11-17] MEDS: LIPITOR 20 MG PO (08:57)
[2023-11-17] MEDS: VITAMIN D3 (cholecalciferol) 25 MCG PO (08:57)
[2023-11-17] MEDS: FEOSOL 325 MG PO (08:57)
[2023-11-17] MEDS: TOPROL XL 25 MG PO (08:57)
[2023-11-17] MEDS: COLACE 100 MG PO (08:57)
[2023-11-17] MEDS: ASPIR LOW (ENTERIC COATED) 81 MG PO (08:57)
[2023-11-17] MEDS: TYLENOL 650 MG PO ×2 (08:57→22:49)
[2023-11-17] MEDS: LASIX 40 MG IV ×2 (08:58→16:10)
[2023-11-17] MEDS: HEPARIN 5000 UNITS SC ×3 (08:58→23:00)
--- NOTE | 2023-11-17 09:07 | W.PN.CD ---
Addendum entered and electronically signed by Faisal Yadav MD 11/17/23 13:24:
I saw and examined the patient.
FT PGY2 note was reviewed and I agree with the note.
Patient comfortable. Clearly feels better after paracentesis. Weight is down. Unclear how much output he is actually having. Respiratory status has improved after paracentesis. Echocardiogram shows severely reduced left ventricular function
with an ejection fraction of 20 to 25%. In discussion with patient he has been told in the past that he has reduced left ventricular function does not know details regarding prior ejection fraction.
Awaiting additional records from his primary regional sales associate at [facility].
Original Note:
Today's Communication / Plan
-
.
Impression / Plan
-
Impression/plan
Acute CHF, unknown EF
-Diuresis with IV Lasix
-Echo 11/16/2023 LV ejection fraction is 20-25%. Severely reduced left ventricular systolic function.
-Will request for records from current regional sales associate at [facility]
-Monitor I's and O's, daily weights
CAD
History of PVD s/p left-sided below-knee amputation
No symptoms to suggest angina.
-Continue aspirin
Ascites
-s/p paracentesis 11/15. Additional evaluation SAAG >1.1
-Obtain old records to review paracentesis done in the past.
Pleural effusion.
- Monitor with diuresis.
Physical Exam
Vital Signs/Labs
Vital Signs
Temp Pulse Resp BP Pulse Ox
97.6 F 65 22 116/67 98
11/17/23 07:47 11/17/23 07:47 11/17/23 07:47 11/17/23 07:47 11/17/23 07:47
11/16/23 11/17/23 11/18/23
06:59 06:59 06:59
Actual Weight 83.14 kg 78.335 kg
11/16/23 04:23
11/17/23 06:19
PT 16.2 Sec (11.4-14.6) H 11/16/23 04:23
INR 1.32 11/16/23 04:23
Magnesium 2.5 mg/dl (1.6-2.3) H 11/16/23 04:23
Triglycerides 78 mg/dl (10-149) 11/16/23 04:23
LDL Cholesterol, Calc 35 mg/dl 11/16/23 04:23
VLDL Cholesterol, Calc 15 mg/dl (0-30) 11/16/23 04:23
HDL Cholesterol 62 mg/dl 11/16/23 04:23
11/15/23
15:07
Mxr-A-Aawcfzikbzg Pept > 28908
LAB Results
11/15/23 11/15/23 11/16/23
15:07 23:35 04:23
Troponin I 0.035 H* 0.039 H* 0.032
Physical Exam
Constitutional: No acute distress
Cardiovascular: Rhythm & rate is regular and S1S2 is normal
Neuro/Psych: Alert, Oriented and AO x 3
Data Reviewed
-
Date of Service: November 17, 2023
--- NOTE | 2023-11-17 09:15 | VATNOTE ---
Patient complained of right IV pain. flushed line and is working properly. Removed it per request and placed a new iv in the left arm. Rt arm is cold to touch and 2/5 swelling- primary RN aware.
[2023-11-17 12:01] LABS: Glucose - Point of Care 170 mg/dl (70-99)
--- NOTE | 2023-11-17 12:19 | W.PN.HOSP.TC ---
Today's Communication/Plan
-
Continue IV diuretics
Continue fluid and sodium restricted diet
Wean oxygen as possible
Consider palliative care
Assessment / Plan
Assessment / Plan
#Acute on chronic HFrEF -- suspect ischemic cardiomyopathy based off of comorbidities
-TTE here showed LVEF 20%, signs of significant pulmonary hypertension as well
-Home GDMT with beta-cale, full GDMT limited by renal function and hypotension
-Home diuretic regimen includes torsemide 40 mg nightly and 60 mg in the day
-Suspect that he was not compliant with fluid and salt restriction as outpatient
-Started on IV Lasix 40 mg twice daily, I's/O's not accurately tracked
-States that he feels significantly better today
-Warm and wet phenotype
Plan
-Continue with Lasix 40 mg twice daily IV; monitor I's and O's, daily weights
-Continue with current GDMT, consider SGLT2i if renal function would permit
-Continue with dietary restriction of sodium and fluid
-Continue with telemetry
-Supplemental oxygen, SpO2 goal >90%
-Cards recommendations appreciated
#Hyperkalemia
-Likely related to reduced renal perfusion from heart failure, possible noncompliance with diuretics
-Potassium level has improved with low potassium diet and IV Lasix course
-Continue Lasix for heart failure and trend daily BMP as above
#Ascites -- secondary to heart failure, s/p fluid studies
-Paracentesis yesterday with 4 L of fluid removed, received albumin following
-Will continue to monitor for reaccumulation though would expect diuretics to help
#Elevated Troponin
-likely Non-Ischemic Myocardial Injury in setting of heart failure
-Troponin trending presentation not consistent with ACS
-peaked at 0.039
#Coronary Artery Disease
#Peripheral Vascular Disease s/p Left BKA
#Dyslipidemia
-No known history of cardiac stents though does seem to have vasculopathic phenotype
-Her medications include aspirin, only moderate intensity statin rhythm now
-Clinically stable, no signs of ACS or CLI today
# H/O hypertension
-Home medications include metoprolol succinate, torsemide; not on first-line agent
-Seems at this time that hypotension is more of an issue and has limited his GDMT
#Diabetes Mellitus, Type II
-Home regimen includes Lantus, aspart insulin, moderate intensity statin
-Upon arrival had borderline low blood glucose levels, Lantus was decreased
-Sliding scale insulin with Accu-Cheks added for additional coverage when needed
-Glucose goal for hospitalization 160�200
#CKD Stage IIIB
-Appears that his baseline creatinine is around 1.6-1.7, presented at that range
-Suspect is associated with chronic anemia, no acidemia or known bone mineral disease
-Will continue to monitor renal function on IV diuretic course as above
#Chronic Anemia
-Suspect multifactorial with kidney disease, element of SLICK as well
-Remains on home iron supplementation
-CBC stable, no signs of bleeding
#GERD
-No known history of Mayorga's esophagus or erosive disease, no recent EGD
-Stable on home regimen including Protonix
#Insomnia
-Continue Trazodone and Melatonin
DVT proph: SC Heparin
Diet: Sodium and fluid restricted
Code Status: DNR, may consider palliative care for GOC
Anticipated Discharge: > 48 hours
Subjective/Interval History
-
Date of Service: November 17, 2023
Seen and examined at the bedside. No acute events overnight.
He remains hemodynamically stable, afebrile, and on 3 L of supplemental oxygen with SpO2 high 90s.
He denies any acute complaints such as chest pain, shortness of breath, fevers or chills, nausea, vomiting, diarrhea, urinary issues, abnormal bleeding or bruising, paresthesias or weakness
Objective Data
-
Labs:
Laboratory Results
11/17/23
06:19
Sodium 140
Potassium 5.2 H
Chloride 102
Carbon Dioxide 32 H
BUN 81 H
Creatinine 1.7 H
Glucose 108 H
Calcium 8.2 L
Vital Signs:
Vital Signs
Temp Pulse Resp BP Pulse Ox
97.3 F 68 22 114/71 95
11/17/23 11:32 11/17/23 11:32 11/17/23 11:32 11/17/23 11:32 11/17/23 11:32
I&O
11/16/23 11/17/23 11/18/23
06:59 06:59 06:59
Intake Total 530 / 530 720 / 720
Balance 530 / 530 720 / 720
Review of Systems
-
History Source: Patient
All other systems: Reviewed and negative
Physical Exam
-
General: Well Nourished, No Apparent Distress and Comfortable; Negative Respiratory Distress
HEENT: Normocephalic, Atraumatic, Moist Mucous Membranes and Anicteric
Respiratory: Non Labored Respirations and Decreased Breath Sounds (Bases bilaterally); Negative Wheezes, Rales or Rhonchi
Cardiac: Regular Rhythm, S1/S2 and JVD; Negative Murmur, Rub or Gallop
GI: Soft, Nontender, Nondistended and Normal Bowel Sounds
Musculoskeletal: No Clubbing, No Cyanosis and Other (2+ pitting edema to lower extremity; left BKA)
Skin: Warm and Dry; Negative Rash or Jaundice
Neuro: AO x 3, Nonfocal/Grossly Intact and Central Nerve's Intact
Data Reviewed
-
Labs: Labs Reviewed by me and Discussed with Patient
[2023-11-17] MEDS: NOVOLOG FLEXPEN-LOW RESISTANCE 1 UNITS SC (12:40)
[2023-11-17 16:57] LABS: Glucose - Point of Care 211 mg/dl (70-99)
[2023-11-17] MEDS: NOVOLOG FLEXPEN-LOW RESISTANCE 2 UNITS SC (17:41)
[2023-11-17 21:31] LABS: Glucose - Point of Care 193 mg/dl (70-99)
[2023-11-17] MEDS: DESYREL 100 MG PO (21:52)
[2023-11-17] MEDS: DESYREL 25 MG PO (21:52)
[2023-11-17] MEDS: LANTUS 0.06 UNITS SC (21:52)
[2023-11-17] MEDS: MELATONIN 3 MG PO (21:53)
[2023-11-17] MEDS: SENOKOT-S PO (22:02)
[2023-11-18 03:48] VITALS: BP 118/72
[2023-11-18 04:23] VITALS: BMI 25.6
[2023-11-18 07:06] LABS: Glucose - Point of Care 98 mg/dl (70-99)
[2023-11-18 07:10] VITALS: BP 116/67
[2023-11-18 07:17] LABS: % Basophils 0.4 % (0-2); % Eosinophils 3.1 % (0-6); % Immature Granulocytes 0.4 % (0-0.5); % Monocytes 10.1 % (1.7-9.3); Absolute Eosinophils 0.2 10^3/uL (0-0.7); Absolute Lymphocytes 0.7 10^3/uL (1.2-3.4); Absolute Monocytes 0.5 10^3/uL (0.1-0.6); Absolute Neutrophils 3.4 10^3/uL (1.4-6.5); Hematocrit 34.3 % (39.0-52.0); Hemoglobin 10.3 g/dL (13.0-18.0); Mean Corpuscular Hgb 26.8 pg (27.0-31.0); Mean Corpuscular Volume 89.3 fL (80.0-94.0); Nucleated Red Blood Cells % 0 % (-); Red Blood Cell Count 3.84 10^6/uL (4.70-6.10); Red Cell Dist. Width 18.3 % (11.5-14.5); White Blood Cell Count 4.8 10^3/uL (4.8-10.8)
[2023-11-18] MEDS: NOVOLOG FLEXPEN-LOW RESISTANCE SC (07:20)
[2023-11-18 07:29] LABS: Blood Urea Nitrogen 80 mg/dl (9-20); Carbon Dioxide 30 mmol/L (22-30); Chloride 103 mmol/L (98-107); Estimated Creatinine Clearance 44 ml/min; Glucose 94 mg/dl (70-99); Sodium 140 mmol/L (135-145); eGFR 46.35
[2023-11-18 08:04] LABS: Mean Platelet Volume 10.5 fL (7.4-10.4); Platelet Count 86 10^3/uL (130-400)
[2023-11-18] MEDS: FEOSOL 325 MG PO (09:00)
[2023-11-18] MEDS: ASPIR LOW (ENTERIC COATED) 81 MG PO (09:00)
[2023-11-18] MEDS: VITAMIN D3 (cholecalciferol) 25 MCG PO (09:00)
[2023-11-18] MEDS: TOPROL XL PO (09:00)
[2023-11-18] MEDS: HEPARIN 5000 UNITS SC ×3 (09:01→23:08)
[2023-11-18] MEDS: COLACE 100 MG PO (09:01)
[2023-11-18] MEDS: LIPITOR 20 MG PO (09:01)
[2023-11-18] MEDS: LASIX 40 MG IV ×2 (09:06→09:51)
--- NOTE | 2023-11-18 09:19 | W.PN.CD ---
Today's Communication / Plan
-
increase to 80mg IV bid
Impression / Plan
-
Acute on chronic systolic HF, ICM EF 25%
-Diuresis with IV Lasix: increase to 80mg IV bid
-monitor labs, tele, weight
-on torsemide as outpatient
-Echo 11/16/2023 LV ejection fraction is 20-25%. Severely reduced left ventricular systolic function.
-outpatient records requested to review why on limited GDMT (Toprol XL 25mg daily): possibly CKD and BP
CAD
-stable, no angina
-cont ASA, statin
History of PVD s/p left-sided below-knee amputation
Ascites
-s/p paracentesis 11/15.
Pleural effusion.
- Monitor with diuresis.
Physical Exam
Vital Signs/Labs
Vital Signs
Temp Pulse Resp BP Pulse Ox
97.5 F 65 20 116/67 96
11/18/23 07:10 11/18/23 07:10 11/18/23 07:10 11/18/23 07:10 11/18/23 07:10
11/17/23 11/18/23 11/19/23
06:59 06:59 06:59
Actual Weight 78.335 kg 78.471 kg
11/18/23 05:41
11/18/23 05:41
PT 16.2 Sec (11.4-14.6) H 11/16/23 04:23
INR 1.32 11/16/23 04:23
Magnesium 2.5 mg/dl (1.6-2.3) H 11/16/23 04:23
Triglycerides 78 mg/dl (10-149) 11/16/23 04:23
LDL Cholesterol, Calc 35 mg/dl 11/16/23 04:23
VLDL Cholesterol, Calc 15 mg/dl (0-30) 11/16/23 04:23
HDL Cholesterol 62 mg/dl 11/16/23 04:23
11/15/23
15:07
Bfj-H-Hsyphhxtskp Pept > 30413
LAB Results
11/15/23 11/15/23 11/16/23
15:07 23:35 04:23
Troponin I 0.035 H* 0.039 H* 0.032
Physical Exam
Constitutional: No acute distress and Comfortable
EENT: Moist mucous membranes
Cardiovascular: Rhythm & rate is regular, Pedal edema present, JVD present and Systolic murmur present
Respiratory: Lungs clear to auscul. and Labored respirations
GI: Soft and Distention present
Neuro/Psych: AO x 3
Data Reviewed
-
Date of Service: November 18, 2023
EKG: Other (Tele: SR 60s)
Echo: Report Reviewed by me
Labs: Labs Reviewed by me
[2023-11-18 11:01] VITALS: BP 118/72
[2023-11-18 11:34] LABS: Glucose - Point of Care 177 mg/dl (70-99)
--- NOTE | 2023-11-18 11:36 | W.PN.HOSP.TC ---
Today's Communication/Plan
-
Increase Lasix to 80 mg IV twice daily
Track intake/output, daily weights
Wean oxygen as possible
Assessment / Plan
Assessment / Plan
#Acute on chronic HFrEF -- suspect ischemic cardiomyopathy based off of comorbidities
-TTE here showed LVEF 20%, signs of significant pulmonary hypertension as well
-Home GDMT with beta-cale, full GDMT limited by renal function and hypotension
-Home diuretic regimen includes torsemide 40 mg nightly and 60 mg in the day
-Suspect that he was not compliant with fluid and salt restriction as outpatient
-Started on IV Lasix 40 mg twice daily, I's/O's nor daily weights accurately tracked
-States that he feels better; cardiology increased to 80 mg Lasix twice daily
-Warm and wet phenotype, improving clinically
Plan
-Continue with Lasix 80 mg twice daily IV; monitor I's and O's, daily weights
-Continue with current GDMT, consider SGLT2i if renal function would permit
-Continue with dietary restriction of sodium and fluid
-Continue with telemetry
-Supplemental oxygen, SpO2 goal >90%
#Hyperkalemia
-Likely related to reduced renal perfusion from heart failure, possible noncompliance with diuretics
-Potassium level has improved with low potassium diet and IV Lasix course
-Continue Lasix for heart failure and trend daily BMP as above
-Resolved as of today
#Ascites -- secondary to heart failure, s/p fluid studies
-Paracentesis yesterday with 4 L of fluid removed, received albumin following
-Will continue to monitor for reaccumulation though would expect diuretics to help
-No signs of fluid recollection
#Elevated Troponin
-likely Non-Ischemic Myocardial Injury in setting of heart failure
-Troponin trending presentation not consistent with ACS
-peaked at 0.039
#Coronary Artery Disease
#Peripheral Vascular Disease s/p Left BKA
#Dyslipidemia
-No known history of cardiac stents though does seem to have vasculopathic phenotype
-Her medications include aspirin, only moderate intensity statin rhythm now
-Clinically stable, no signs of ACS or CLI today
# H/O hypertension
-Home medications include metoprolol succinate, torsemide; not on first-line agent
-Seems at this time that hypotension is more of an issue and has limited his GDMT
#Diabetes Mellitus, Type II
-Home regimen includes Lantus, aspart insulin, moderate intensity statin
-Upon arrival had borderline low blood glucose levels, Lantus was decreased
-Sliding scale insulin with Accu-Cheks added for additional coverage when needed
-Glucose goal for hospitalization 160�200
#CKD Stage IIIB
-Appears that his baseline creatinine is around 1.6-1.7, presented at that range
-Suspect is associated with chronic anemia, no acidemia or known bone mineral disease
-Will continue to monitor renal function on IV diuretic course as above
#Chronic Anemia
-Suspect multifactorial with kidney disease, element of SLICK as well
-Remains on home iron supplementation
-CBC stable, no signs of bleeding
#GERD
-No known history of Mayorga's esophagus or erosive disease, no recent EGD
-Stable on home regimen including Protonix
#Insomnia
-Continue Trazodone and Melatonin
DVT proph: SC Heparin
Diet: Sodium and fluid restricted
Code Status: DNR
Anticipated Discharge: 24 - 48 hours
Subjective/Interval History
-
Date of Service: November 18, 2023
Seen and examined at bedside. No acute events report overnight.
As of this morning he remains hemodynamically stable, afebrile, on low-level oxygen via nasal cannula mostly for comfort
He denies chest pain, cough, wheeze, nausea, vomiting, diarrhea, urinary issue, abnormal bleeding or bruising, paresthesias or weakness. States he still feels slightly short of breath, abdominal distention is improving
Objective Data
-
Labs:
Laboratory Results
11/18/23
05:41
WBC 4.8
Hgb 10.3 L
Hct 34.3 L
Plt Count 86 L
Sodium 140
Potassium 5.0
Chloride 103
Carbon Dioxide 30
BUN 80 H
Creatinine 1.6 H
Glucose 94
Calcium 8.0 L
Vital Signs:
Vital Signs
Temp Pulse Resp BP Pulse Ox
98 F 70 20 118/72 95
11/18/23 11:01 11/18/23 11:01 11/18/23 11:01 11/18/23 11:01 11/18/23 11:01
I&O
11/17/23 11/18/23 11/19/23
06:59 06:59 06:59
Intake Total 720 / 720 920 / 920
Balance 720 / 720 920 / 920
Review of Systems
-
History Source: Patient
All other systems: Reviewed and negative
Physical Exam
-
General: Well Nourished, No Apparent Distress, Comfortable and Appears Chronically Ill
HEENT: Normocephalic, Atraumatic, Moist Mucous Membranes and Anicteric
Respiratory: Non Labored Respirations and Decreased Breath Sounds (Bilateral bases, CTA otherwise); Negative Wheezes, Rales, Rhonchi or Accessory Resp Muscle Use
Cardiac: Regular Rhythm, S1/S2 and JVD; Negative Murmur, Rub or Gallop
GI: Soft, Nontender, Normal Bowel Sounds and Distended (Mildly, improved from previous)
Musculoskeletal: No Clubbing, No Cyanosis and Other (1+ lower extremity edema, left BKA present)
Skin: Warm and Dry; Negative Rash or Jaundice
Neuro: AO x 3, Nonfocal/Grossly Intact and Central Nerve's Intact
Data Reviewed
-
Labs: Labs Reviewed by me and Discussed with Patient
[2023-11-18] MEDS: NOVOLOG FLEXPEN-LOW RESISTANCE 1 UNITS SC (12:00)
--- NOTE | 2023-11-18 12:21 | CM ---
Patient seen at bedside with headphones on sleeping. Patient is LTC at [facility], plan is for discharge when medically appropriate back to facility. CM will continue to follow for discharge planning needs.
Plan; return to SNF when medically appropriate.
[2023-11-18] MEDS: LASIX 80 MG IV (15:52)
[2023-11-18 15:55] VITALS: BP 121/73
[2023-11-18 16:56] LABS: Glucose - Point of Care 221 mg/dl (70-99)
[2023-11-18] MEDS: NOVOLOG FLEXPEN-LOW RESISTANCE 2 UNITS SC (17:16)
[2023-11-18 19:37] VITALS: BP 121/80
[2023-11-18] MEDS: SENOKOT-S PO (20:18)
[2023-11-18] MEDS: TYLENOL 650 MG PO (20:19)
[2023-11-18] MEDS: DICLOFENAC 1% TOPICAL GEL 100 GRAM TOPICAL (20:20)
[2023-11-18 21:25] LABS: Glucose - Point of Care 172 mg/dl (70-99)
[2023-11-18] MEDS: DESYREL 100 MG PO (21:36)
[2023-11-18] MEDS: LANTUS 0.06 UNITS SC (21:36)
[2023-11-18] MEDS: MELATONIN 3 MG PO (21:36)
[2023-11-18] MEDS: DESYREL 25 MG PO (21:36)
[2023-11-18 23:50] VITALS: BP 108/66
[2023-11-19 03:06] VITALS: BP 114/66
[2023-11-19 05:16] VITALS: BMI 25.2
[2023-11-19 06:49] LABS: Blood Urea Nitrogen 74 mg/dl (9-20); Calcium 8.2 mg/dl (8.4-10.2); Carbon Dioxide 32 mmol/L (22-30); Chloride 103 mmol/L (98-107); Estimated Creatinine Clearance 54 ml/min; Glucose 74 mg/dl (70-99); Magnesium 2.4 mg/dl (1.6-2.3); Potassium 4.8 mmol/L (3.5-5.1); Sodium 139 mmol/L (135-145); eGFR 59.47
[2023-11-19 07:05] VITALS: BP 111/76
[2023-11-19 07:12] LABS: Glucose - Point of Care 82 mg/dl (70-99)
[2023-11-19 07:12] LABS: % Basophils 0.7 % (0-2); % Eosinophils 3.3 % (0-6); % Immature Granulocytes 0.2 % (0-0.5); % Lymphocytes 15.7 % (20.5-51.1); % Monocytes 10.8 % (1.7-9.3); % Neutrophils 69.3 % (42.2-75.2); Absolute Eosinophils 0.2 10^3/uL (0-0.7); Absolute Lymphocytes 0.7 10^3/uL (1.2-3.4); Absolute Monocytes 0.5 10^3/uL (0.1-0.6); Absolute Neutrophils 3.1 10^3/uL (1.4-6.5); Hematocrit 33.3 % (39.0-52.0); Hemoglobin 10.1 g/dL (13.0-18.0); Mean Corp Hgb Conc. 30.3 g/dL (33.0-37.0); Mean Platelet Volume 10.1 fL (7.4-10.4); Nucleated Red Blood Cells % 0 % (-); Platelet Count 79 10^3/uL (130-400); Red Blood Cell Count 3.74 10^6/uL (4.70-6.10); Red Cell Dist. Width 18.2 % (11.5-14.5); White Blood Cell Count 4.5 10^3/uL (4.8-10.8)
[2023-11-19] MEDS: NOVOLOG FLEXPEN-LOW RESISTANCE SC ×2 (07:30→11:50)
[2023-11-19] MEDS: VITAMIN D3 (cholecalciferol) 25 MCG PO (08:14)
[2023-11-19] MEDS: FEOSOL 325 MG PO (08:16)
[2023-11-19] MEDS: LIPITOR 20 MG PO (08:16)
[2023-11-19] MEDS: ASPIR LOW (ENTERIC COATED) 81 MG PO (08:16)
[2023-11-19] MEDS: COLACE 100 MG PO (08:16)
[2023-11-19] MEDS: TOPROL XL PO (08:16)
[2023-11-19] MEDS: HEPARIN 5000 UNITS SC ×2 (08:16→16:26)
[2023-11-19] MEDS: LASIX 80 MG IV ×2 (08:17→16:29)
--- NOTE | 2023-11-19 09:56 | W.PN.CD ---
Today's Communication / Plan
-
Continue IV diuresis.
Impression / Plan
-
Acute on chronic systolic HF, ICM EF 25%
-Diuresis with IV Lasix: continue 80mg IV bid this will require ongoing intensive monitoring of his labs and vitals.
-monitor labs, tele, weight
-on torsemide as outpatient,
Review of records from [facility] system office visit from 12/31/2022 has him on Entresto, MRA, SGLT2 inhibitor was planned. By the next visit, this has been changed to just a low-dose lisinopril which needed to be stopped for
hyperkalemia. Unclear what happened to the remaining GDMT in the interim, patient cannot provide that history either. Would defer initiating GDMT to his primary publication specialist who is likely aware of the history.
-Echo 11/16/2023 LV ejection fraction is 20-25%. Severely reduced left ventricular systolic function. Last echo in 2022 states EF 25% to 30, suspect this is likely stable.
DAVID:
Cr improved to 1.3 with diuresis
CAD
-stable, no angina
-cont ASA, statin
History of PVD s/p left-sided below-knee amputation
Ascites
-s/p paracentesis 11/15.
Pleural effusion.
- Monitor with diuresis.
Subjective:
Agitated would like to be moved up in the bed. Once that is completed he denies any chest pain thinks his shortness of breath is improving.
[facility] [place] [facility] global hypokinesis EF 25 to 30% with severe dysfunction, RV dilated with decreased function, IVC dilated without compression PASP estimated at 60 mmHg
Physical Exam
Vital Signs/Labs
Vital Signs
Temp Pulse Resp BP Pulse Ox
97.3 F 66 20 111/76 93
11/19/23 07:05 11/19/23 08:16 11/19/23 07:05 11/19/23 08:16 11/19/23 07:05
11/18/23 11/19/23 11/20/23
06:59 06:59 06:59
Actual Weight 78.471 kg 77.281 kg
11/19/23 05:32
11/19/23 05:32
PT 16.2 Sec (11.4-14.6) H 11/16/23 04:23
INR 1.32 11/16/23 04:23
Magnesium 2.4 mg/dl (1.6-2.3) H 11/19/23 05:32
Triglycerides 78 mg/dl (10-149) 11/16/23 04:23
LDL Cholesterol, Calc 35 mg/dl 11/16/23 04:23
VLDL Cholesterol, Calc 15 mg/dl (0-30) 11/16/23 04:23
HDL Cholesterol 62 mg/dl 11/16/23 04:23
11/15/23
15:07
[id number] Pept > [id number]
Physical Exam
Constitutional: No acute distress
Cardiovascular: Rhythm & rate is regular, Pedal edema present (Trace in the right leg, left leg is a BKA with trace edema) and JVD present (13 cm of H2O)
Respiratory: Respiratory effort normal and Lungs clear to auscul.
Neuro/Psych: AO x 3
Data Reviewed
-
Date of Service: November 19, 2023
Medical Decision Making: External Notes (Notes from [facility] dated 09/14/2023 and 12/31/2022. Echo from 10/20/2022 global hypokinesis EF 25 to 30% with severe dysfunction, RV dilated with decreased function, IVC dilated without
compression PASP estimated at 60 mmHg)
[2023-11-19 11:22] VITALS: BP 123/76
--- NOTE | 2023-11-19 11:41 | W.PN.HOSP.TC ---
Today's Communication/Plan
-
Continue IV Lasix 80 mg twice daily
Consider acetazolamide plus Lasix per ADVOR trial, may benefit with bicarb >30
Trend BMP and magnesium levels closely
Wean oxygen as possible
Assessment / Plan
Assessment / Plan
#Acute on chronic HFrEF -- suspect ischemic cardiomyopathy based off of comorbidities
-TTE here showed LVEF 20%, signs of significant pulmonary hypertension as well
-Home GDMT with beta-cale, full GDMT limited by renal function and hypotension
-Home diuretic regimen includes torsemide 40 mg nightly and 60 mg in the day
-Suspect that he was not compliant with fluid and salt restriction as outpatient
-Started on IV Lasix 40 mg twice daily, I's/O's nor daily weights accurately tracked
-States that he feels better; cardiology increased to 80 mg Lasix twice daily
-Lasix improving renal function now, does have alkalosis, could benefit from acetazolamide
-Warm and wet phenotype, improving clinically
Plan
-Continue with Lasix 80 mg twice daily IV; monitor I's and O's, daily weights
-Would consider acetazolamide in addition to loop diuretic per ADVOR trial
-Continue with dietary restriction of sodium and fluid
-Continue with telemetry
-Supplemental oxygen, SpO2 goal >90%
#Hyperkalemia
-Likely related to reduced renal perfusion from heart failure, possible noncompliance with diuretics
-Potassium level has improved with low potassium diet and IV Lasix course
-Continue Lasix for heart failure and trend daily BMP as above
-Resolved as of today
#Ascites -- secondary to heart failure, s/p fluid studies
-Paracentesis yesterday with 4 L of fluid removed, received albumin following
-Will continue to monitor for reaccumulation though would expect diuretics to help
-No signs of fluid recollection
#Elevated Troponin
-likely Non-Ischemic Myocardial Injury in setting of heart failure
-Troponin trending presentation not consistent with ACS
-peaked at 0.039
#Coronary Artery Disease
#Peripheral Vascular Disease s/p Left BKA
#Dyslipidemia
-No known history of cardiac stents though does seem to have vasculopathic phenotype
-Her medications include aspirin, only moderate intensity statin rhythm now
-Clinically stable, no signs of ACS or CLI today
# H/O hypertension
-Home medications include metoprolol succinate, torsemide; not on first-line agent
-Seems at this time that hypotension is more of an issue and has limited his GDMT
#Diabetes Mellitus, Type II
-Home regimen includes Lantus, aspart insulin, moderate intensity statin
-Upon arrival had borderline low blood glucose levels, Lantus was decreased
-Sliding scale insulin with Accu-Cheks added for additional coverage when needed
-Glucose goal for hospitalization 160�200
#CKD Stage IIIB
-Appears that his baseline creatinine is around 1.6-1.7, presented at that range
-Suspect is associated with chronic anemia, no acidemia or known bone mineral disease
-Will continue to monitor renal function on IV diuretic course as above
#Chronic Anemia
-Suspect multifactorial with kidney disease, element of SLICK as well
-Remains on home iron supplementation
-CBC stable, no signs of bleeding
#GERD
-No known history of Mayorga's esophagus or erosive disease, no recent EGD
-Stable on home regimen including Protonix
#Insomnia
-Continue Trazodone and Melatonin
DVT proph: SC Heparin
Diet: Sodium and fluid restricted
Code Status: DNR
Anticipated Discharge: > 48 hours
Subjective/Interval History
-
Date of Service: November 19, 2023
Seen and examined at the bedside. No acute events reported overnight.
He remains hemodynamically stable, afebrile, on low level of oxygen this morning that seems mostly for comfort. Renal function has improved following increased diuretic dose yesterday
Denies chest pain, shortness of breath, fevers or chills, nausea, vomiting, abnormal bleeding or bruising, urinary issues, paresthesias or weakness. Says that his abdominal distention continues to improve day by day.
Objective Data
-
Labs:
Laboratory Results
11/19/23
05:32
WBC 4.5 L
Hgb 10.1 L
Hct 33.3 L
Plt Count 79 L
Sodium 139
Potassium 4.8
Chloride 103
Carbon Dioxide 32 H
BUN 74 H
Creatinine 1.3
Glucose 74
Calcium 8.2 L
Vital Signs:
Vital Signs
Temp Pulse Resp BP Pulse Ox
97.6 F 74 22 123/76 97
11/19/23 11:22 11/19/23 11:22 11/19/23 11:22 11/19/23 11:22 11/19/23 11:22
I&O
11/18/23 11/19/23 11/20/23
06:59 06:59 06:59
Intake Total 920 / 920 960 / 960
Balance 920 / 920 960 / 960
Review of Systems
-
History Source: Patient
All other systems: Reviewed and negative
Physical Exam
-
General: No Apparent Distress and Comfortable
HEENT: Normocephalic, Atraumatic, Moist Mucous Membranes and Anicteric
Respiratory: Non Labored Respirations, Accessory Resp Muscle Use and Decreased Breath Sounds; Negative Wheezes, Rales or Rhonchi
Cardiac: Regular Rhythm, S1/S2 and JVD; Negative Murmur, Rub or Gallop
GI: Soft, Nontender, Nondistended and Normal Bowel Sounds
Musculoskeletal: No Clubbing, No Cyanosis and Other (1+ bilateral pitting edema)
Skin: Warm and Dry; Negative Rash
Neuro: AO x 3, Nonfocal/Grossly Intact and Central Nerve's Intact
Data Reviewed
-
Labs: Labs Reviewed by me and Discussed with Patient
[2023-11-19 11:45] LABS: Glucose - Point of Care 144 mg/dl (70-99)
--- NOTE | 2023-11-19 11:49 | CM ---
CM spoke with Wale's son, Wale Martin, to discuss living will. He is interested in discussing this further along with his father. Son anticipates visiting later today or tomorrow and will review the form at pt's bedside. CM will be available to
discuss and assist with living will conversation if patient and son would like assistance.
Plan: CM to speak with Wale and his son regarding living will/advance directive. Discharge to [facility] when medically stable.
--- NOTE | 2023-11-19 14:37 | CM ---
Addendum entered by Annette Ramírez 11/19/23 16:13:
CM did find the call button and provided to Wale during the original visit earlier today.
Original Note:
CM met with Wale at bedside. He was calling for help; he is bedbound and blind, so he cannot help himself. CM went into room and Wale advised that he had 'lost the button' and was unable to get help. I spoke with Seven for awhile to allow
him to de-stress; I offered to help him with ordering his lunch and he was very thankful.
Plan: BRITT will continue to follow; anticipate speaking with Wale and his son later today or over the weekend, regarding advance directive.
[2023-11-19 15:04] VITALS: BP 144/79
[2023-11-19 16:51] LABS: Glucose - Point of Care 218 mg/dl (70-99)
[2023-11-19] MEDS: NOVOLOG FLEXPEN-LOW RESISTANCE 2 UNITS SC (17:00)
[2023-11-19 19:39] VITALS: BP 124/78
[2023-11-19 21:13] LABS: Glucose - Point of Care 201 mg/dl (70-99)
[2023-11-19] MEDS: DESYREL 25 MG PO (21:36)
[2023-11-19] MEDS: TYLENOL 650 MG PO (21:36)
[2023-11-19] MEDS: MELATONIN 3 MG PO (21:36)
[2023-11-19] MEDS: SENOKOT-S 1 TABLET PO (21:36)
[2023-11-19] MEDS: LANTUS 0.06 UNITS SC (21:37)
[2023-11-19] MEDS: DICLOFENAC 1% TOPICAL GEL 100 GRAM TOPICAL (21:37)
[2023-11-19] MEDS: DESYREL 100 MG PO (21:37)
[2023-11-19] MEDS: HEPARIN SC (21:44)
[2023-11-19 23:31] VITALS: BP 120/68
[2023-11-20] MEDS: TYLENOL 650 MG PO ×2 (03:44→22:17)
[2023-11-20 03:52] VITALS: BP 120/70
[2023-11-20 06:00] VITALS: BMI 24.8
[2023-11-20 07:28] LABS: Glucose - Point of Care 82 mg/dl (70-99)
[2023-11-20 07:30] VITALS: BP 111/66
[2023-11-20] MEDS: NOVOLOG FLEXPEN-LOW RESISTANCE SC (07:38)
[2023-11-20] MEDS: LASIX 80 MG IV ×2 (08:28→15:10)
[2023-11-20] MEDS: HEPARIN 5000 UNITS SC ×2 (08:29→15:11)
[2023-11-20] MEDS: LIPITOR 20 MG PO (08:30)
[2023-11-20] MEDS: TOPROL XL PO (08:30)
[2023-11-20] MEDS: ASPIR LOW (ENTERIC COATED) 81 MG PO (08:30)
[2023-11-20] MEDS: VITAMIN D3 (cholecalciferol) 25 MCG PO (08:30)
[2023-11-20] MEDS: COLACE 100 MG PO (08:30)
[2023-11-20] MEDS: FEOSOL 325 MG PO (08:30)
[2023-11-20 08:36] LABS: % Basophils 0.4 % (0-2); % Eosinophils 3.8 % (0-6); % Immature Granulocytes 0.4 % (0-0.5); % Lymphocytes 14.4 % (20.5-51.1); % Monocytes 10.4 % (1.7-9.3); % Neutrophils 70.6 % (42.2-75.2); Absolute Eosinophils 0.2 10^3/uL (0-0.7); Absolute Lymphocytes 0.7 10^3/uL (1.2-3.4); Absolute Monocytes 0.5 10^3/uL (0.1-0.6); Absolute Neutrophils 3.2 10^3/uL (1.4-6.5); Hematocrit 32.9 % (39.0-52.0); Hemoglobin 9.8 g/dL (13.0-18.0); Mean Corp Hgb Conc. 29.8 g/dL (33.0-37.0); Mean Corpuscular Hgb 26.3 pg (27.0-31.0); Mean Corpuscular Volume 88.4 fL (80.0-94.0); Mean Platelet Volume 9.9 fL (7.4-10.4); Nucleated Red Blood Cells % 0 % (-); Platelet Count 76 10^3/uL (130-400); Red Blood Cell Count 3.72 10^6/uL (4.70-6.10); Red Cell Dist. Width 17.9 % (11.5-14.5); White Blood Cell Count 4.5 10^3/uL (4.8-10.8)
[2023-11-20 08:49] LABS: Blood Urea Nitrogen 62 mg/dl (9-20); Calcium 8.2 mg/dl (8.4-10.2); Carbon Dioxide 36 mmol/L (22-30); Chloride 102 mmol/L (98-107); Estimated Creatinine Clearance 58 ml/min; Glucose 80 mg/dl (70-99); Magnesium 2.3 mg/dl (1.6-2.3); Potassium 4.6 mmol/L (3.5-5.1); Sodium 143 mmol/L (135-145); eGFR > 60.00
--- NOTE | 2023-11-20 08:49 | W.PN.CD ---
Addendum entered and electronically signed by Faisal Yadav MD 11/20/23 11:38:
I saw and examined the patient.
PGY 2 note was reviewed and I agree with the note.
Patient continues diuresis with IV Lasix. Still remains on O2. Patient reports not being on O2 prior to admit.
-Continue diuresis and monitor renal function
-Wean O2 as tolerated.
-If able to wean off O2 then consider changing to oral diuretic. Please note that in review of outside records it appears that his diuretic dosing was torsemide 40 mg twice daily as of August of 2023
Original Note:
Today's Communication / Plan
-
.
Impression / Plan
-
Acute on chronic systolic HF, ICM EF 25%
-Diuresis with IV Lasix: continue 80mg IV bid
-monitor labs, tele, weight
-on torsemide as outpatient,
-Echo 11/16/2023 LV ejection fraction is 20-25%. Severely reduced left ventricular systolic function. Last echo in 2022 states EF 25% to 30, suspect this is likely stable.
DAVID:
Cr improved to 1.2 with diuresis
CAD
-stable, no angina
-cont ASA, statin
History of PVD s/p left-sided below-knee amputation
Ascites
-s/p paracentesis 11/15.
Pleural effusion.
- Monitor with diuresis.
[facility] [place] [facility] global hypokinesis EF 25 to 30% with severe dysfunction, RV dilated with decreased function, IVC dilated without compression PASP estimated at 60 mmHg
Physical Exam
Vital Signs/Labs
Vital Signs
Temp Pulse Resp BP Pulse Ox
97.8 F 75 20 111/66 94
11/20/23 03:52 11/20/23 03:52 11/20/23 03:52 11/20/23 08:30 11/20/23 03:52
11/19/23 11/20/23 11/21/23
06:59 06:59 06:59
Actual Weight 77.281 kg 75.977 kg
11/20/23 06:57
PT 16.2 Sec (11.4-14.6) H 11/16/23 04:23
INR 1.32 11/16/23 04:23
Magnesium 2.4 mg/dl (1.6-2.3) H 11/19/23 05:32
Triglycerides 78 mg/dl (10-149) 11/16/23 04:23
LDL Cholesterol, Calc 35 mg/dl 11/16/23 04:23
VLDL Cholesterol, Calc 15 mg/dl (0-30) 11/16/23 04:23
HDL Cholesterol 62 mg/dl 11/16/23 04:23
11/15/23
15:07
[id number]-K-Lhpurjoyzzj Pept > [id number]
Physical Exam
Constitutional: No acute distress
Cardiovascular: Rhythm & rate is regular
Respiratory: Respiratory effort normal and Lungs clear to auscul.
Neuro/Psych: Alert, Oriented and AO x 3
Data Reviewed
-
Date of Service: November 20, 2023
[2023-11-20 11:00] VITALS: BP 114/72
[2023-11-20 11:53] LABS: Glucose - Point of Care 167 mg/dl (70-99)
[2023-11-20] MEDS: NOVOLOG FLEXPEN-LOW RESISTANCE 1 UNITS SC (12:13)
--- NOTE | 2023-11-20 13:11 | W.PN.HOSP.TC ---
Today's Communication/Plan
-
cont diuresis
Assessment / Plan
Assessment / Plan
pt is a 68 year old male
Acute on chronic HFrEF -- suspect ischemic cardiomyopathy based off of comorbidities--TTE here showed LVEF 20%, signs of significant pulmonary hypertension as well--Home diuretic regimen includes torsemide 40 mg nightly and 60 mg in the day--Suspect
that he was not compliant with fluid and salt restriction as outpatient--cont IV lasix BID--follow I/Os--Would consider acetazolamide in addition to loop diuretic per ADVOR trial--Continue with dietary restriction of sodium and fluid--Continue with
telemetry-Supplemental oxygen, SpO2 goal >90%
Hyperkalemia--Likely related to reduced renal perfusion from heart failure, possible noncompliance with diuretics--Potassium level has improved with low potassium diet and IV Lasix course--Continue Lasix for heart failure and trend daily BMP as
above-Resolved as of today
Ascites -- secondary to heart failure, s/p fluid studies--Paracentesis yesterday with 4 L of fluid removed, received albumin following--Will continue to monitor for reaccumulation though would expect diuretics to help--No signs of fluid recollection
Elevated Troponin--likely Non-Ischemic Myocardial Injury in setting of heart failure--Troponin trending presentation not consistent with ACS--peaked at 0.039
Coronary Artery Disease/Peripheral Vascular Disease s/p Left BKA
Dyslipidemia--cont statin
H/O hypertension-Home medications include metoprolol succinate, torsemide; not on first-line agent-Seems at this time that hypotension is more of an issue and has limited his GDMT
Diabetes Mellitus, Type II-Home regimen includes Lantus, aspart insulin, moderate intensity statin-Sliding scale insulin with Accu-Cheks added for additional coverage when needed-Glucose goal for hospitalization 160�200
CKD Stage IIIB-Appears that his baseline creatinine is around 1.6-1.7, presented at that range-Suspect is associated with chronic anemia, no acidemia or known bone mineral disease
Chronic Anemia-Suspect multifactorial with kidney disease, element of SLICK as well-Remains on home iron supplementation
GERD-No known history of Mayorga's esophagus or erosive disease, no recent EGD--cont PPI
Insomnia-Continue Trazodone and Melatonin
DVT proph: SC Heparin
Code Status: DNR
Anticipated Discharge: > 48 hours
Subjective/Interval History
-
Date of Service: November 20, 2023
pt eating lunch--no c/o
Objective Data
-
Labs:
Laboratory Results
11/20/23
06:57
WBC 4.5 L
Hgb 9.8 L
Hct 32.9 L
Plt Count 76 L
Sodium 143
Potassium 4.6
Chloride 102
Carbon Dioxide 36 H
BUN 62 H
Creatinine 1.2
Glucose 80
Calcium 8.2 L
Vital Signs:
max temp for 24 hours
11/19/23
19:39
Temp 97.9 F
Vital Signs
Temp Pulse Resp BP Pulse Ox
97.5 F 78 18 114/72 96
11/20/23 11:00 11/20/23 11:00 11/20/23 11:00 11/20/23 11:00 11/20/23 11:00
I&O
11/19/23 11/20/23 11/21/23
06:59 06:59 06:59
Intake Total 960 / 960 960 / 960
Output Total 400 / 400
Balance 960 / 960 560 / 560
Review of Systems
-
All other systems: Reviewed and negative
Physical Exam
-
General: Well Developed, Well Nourished and No Apparent Distress
HEENT: Normocephalic and Atraumatic
Respiratory: Clear to Auscultation; Negative Wheezes or Rhonchi
Cardiac: Regular Rhythm and S1/S2; Negative Murmur
GI: Soft, Nontender, Normal Bowel Sounds and Distended
Musculoskeletal: No Clubbing, No Cyanosis and Other (left BKA--2+ LE edema right leg)
Neuro: Awake and Alert
[2023-11-20 15:07] VITALS: BP 122/76
[2023-11-20 16:49] LABS: Glucose - Point of Care 258 mg/dl (70-99)
[2023-11-20] MEDS: NOVOLOG FLEXPEN-LOW RESISTANCE 3 UNITS SC (17:03)
[2023-11-20 19:23] VITALS: BP 129/84
[2023-11-20 21:27] LABS: Glucose - Point of Care 200 mg/dl (70-99)
[2023-11-20] MEDS: SENOKOT-S 1 TABLET PO (22:07)
[2023-11-20] MEDS: MELATONIN 3 MG PO (22:07)
[2023-11-20] MEDS: DESYREL 100 MG PO (22:07)
[2023-11-20] MEDS: DESYREL 25 MG PO (22:07)
[2023-11-20] MEDS: LANTUS 0.06 UNITS SC (22:08)
[2023-11-20] MEDS: DICLOFENAC 1% TOPICAL GEL 100 GRAM TOPICAL (22:14)
[2023-11-20 23:22] VITALS: BP 124/73
[2023-11-20] MEDS: HEPARIN SC (23:23)
[2023-11-21 03:06] VITALS: BP 122/75
[2023-11-21 06:00] VITALS: BMI 24.6
[2023-11-21 07:12] LABS: Glucose - Point of Care 162 mg/dl (70-99)
[2023-11-21 08:11] VITALS: BP 160/97
[2023-11-21 08:32] LABS: Hematocrit 35.9 % (39.0-52.0); Hemoglobin 10.7 g/dL (13.0-18.0); Mean Corp Hgb Conc. 29.8 g/dL (33.0-37.0); Mean Corpuscular Hgb 26.2 pg (27.0-31.0); Mean Corpuscular Volume 87.8 fL (80.0-94.0); Mean Platelet Volume 10.6 fL (7.4-10.4); Platelet Count 80 10^3/uL (130-400); Red Blood Cell Count 4.09 10^6/uL (4.70-6.10); White Blood Cell Count 5.3 10^3/uL (4.8-10.8)
[2023-11-21] MEDS: NOVOLOG FLEXPEN-LOW RESISTANCE 1 UNITS SC ×2 (08:32→12:45)
[2023-11-21] MEDS: HEPARIN 5000 UNITS SC ×3 (08:33→23:10)
[2023-11-21] MEDS: COLACE 100 MG PO (08:35)
[2023-11-21] MEDS: ASPIR LOW (ENTERIC COATED) 81 MG PO (08:35)
[2023-11-21] MEDS: TOPROL XL 25 MG PO (08:35)
[2023-11-21] MEDS: VITAMIN D3 (cholecalciferol) 25 MCG PO (08:36)
[2023-11-21] MEDS: FEOSOL 325 MG PO (08:36)
[2023-11-21] MEDS: LIPITOR 20 MG PO (08:36)
[2023-11-21] MEDS: TYLENOL 650 MG PO ×2 (08:47→22:35)
[2023-11-21 08:49] LABS: Blood Urea Nitrogen 54 mg/dl (9-20); Calcium 8.5 mg/dl (8.4-10.2); Carbon Dioxide 34 mmol/L (22-30); Chloride 101 mmol/L (98-107); Estimated Creatinine Clearance 63 ml/min; Glucose 192 mg/dl (70-99); Magnesium 2.2 mg/dl (1.6-2.3); Potassium 4.8 mmol/L (3.5-5.1); Sodium 141 mmol/L (135-145); eGFR > 60.00
[2023-11-21] MEDS: LASIX 80 MG IV ×2 (09:01→15:56)
--- NOTE | 2023-11-21 09:58 | W.PN.HOSP.TC ---
Today's Communication/Plan
-
cont diuresis, daily weights
may need retap next week prior to d/c
Assessment / Plan
Assessment / Plan
pt is a 68 year old male
Acute on chronic HFrEF -- suspect ischemic cardiomyopathy based off of comorbidities--TTE here showed LVEF 20%, signs of significant pulmonary hypertension as well--Home diuretic regimen includes torsemide 40 mg nightly and 60 mg in the day--Suspect
that he was not compliant with fluid and salt restriction as outpatient--cont IV lasix BID--follow I/Os--Continue with dietary restriction of sodium and fluid--Continue with telemetry---weights down, 85.9kg to 75.3 kg
Hyperkalemia--resolved--Likely related to reduced renal perfusion from heart failure, possible noncompliance with diuretics--Potassium level has improved with low potassium diet and IV Lasix course--Continue Lasix for heart failure and trend daily
BMP as above
Ascites -- secondary to heart failure, s/p fluid studies--Paracentesis with 4 L of fluid removed, received albumin following--Will continue to monitor for reaccumulation though would expect diuretics to help--may need retap next week
Elevated Troponin--likely Non-Ischemic Myocardial Injury in setting of heart failure--Troponin trending presentation not consistent with ACS--peaked at 0.039
Coronary Artery Disease/Peripheral Vascular Disease s/p Left BKA
Dyslipidemia--cont statin
Essential hypertension--Home medications include metoprolol succinate, torsemide; not on first-line agent-Seems at this time that hypotension is more of an issue and has limited his GDMT
Diabetes Mellitus, Type II-Home regimen includes Lantus, aspart insulin, moderate intensity statin-Sliding scale insulin with Accu-Cheks added for additional coverage when needed-Glucose goal for hospitalization 160�200
CKD Stage IIIB-Appears that his baseline creatinine is around 1.6-1.7, presented at that range--Suspect is associated with chronic anemia, no acidemia or known bone mineral disease
Chronic Anemia-Suspect multifactorial with kidney disease, element of SLICK as well-Remains on home iron supplementation
GERD-No known history of Mayorga's esophagus or erosive disease, no recent EGD--cont PPI
Insomnia-Continue Trazodone and Melatonin
DVT proph: SC Heparin
Code Status: DNR
Anticipated Discharge: > 48 hours
Subjective/Interval History
-
Date of Service: November 21, 2023
pt c/o about the heat (AC not working housewide this AM)
Objective Data
-
Labs:
Laboratory Results
11/21/23
07:43
WBC 5.3
Hgb 10.7 L
Hct 35.9 L
Plt Count 80 L
Sodium 141
Potassium 4.8
Chloride 101
Carbon Dioxide 34 H
BUN 54 H
Creatinine 1.1
Glucose 192 H
Calcium 8.5
Vital Signs:
max temp for 24 hours
11/20/23
19:23
Temp 98.3 F
Vital Signs
Temp Pulse Resp BP Pulse Ox
98 F 104 18 160/97 97
11/21/23 08:11 11/21/23 08:11 11/21/23 08:11 11/21/23 08:11 11/21/23 08:11
I&O
11/20/23 11/21/23 11/22/23
06:59 06:59 06:59
Intake Total 960 / 960 840 / 840
Output Total 400 / 400 350 / 350
Balance 560 / 560 490 / 490
Review of Systems
-
All other systems: Reviewed and negative
Physical Exam
-
General: Well Developed, Well Nourished and No Apparent Distress
HEENT: Normocephalic and Atraumatic
Respiratory: Clear to Auscultation; Negative Wheezes or Rhonchi
Cardiac: Regular Rhythm and S1/S2; Negative Murmur
GI: Soft, Nontender, Normal Bowel Sounds and Distended
Musculoskeletal: No Clubbing, No Cyanosis, No Edema and Other (left BKA)
Neuro: Awake and Alert
[2023-11-21 11:56] VITALS: BP 155/83
[2023-11-21 12:19] LABS: Glucose - Point of Care 191 mg/dl (70-99)
--- NOTE | 2023-11-21 12:59 | W.PN.CD ---
Today's Communication / Plan
-
Continue diuresis and monitor renal function
Can contact primary publications manager on Wednesday as we try to coordinate treatment plan
Continue to assess need for repeat paracentesis and would repeat chest x-ray tomorrow or Wednesday to further assess need for thoracentesis
Impression / Plan
-
Acute on chronic systolic HF, ICM EF 25%
-Diuresis with IV Lasix: continue 80mg IV bid
-monitor labs, tele, weight
-on torsemide as outpatient,
-Echo 11/16/2023 LV ejection fraction is 20-25%. Severely reduced left ventricular systolic function. Last echo in 2022 states EF 25% to 30, suspect this is likely stable.
-GDMT limited on presentation and there may be a specific reason for this since patient is closely followed by his primary publications manager. Will try to contact publications manager on Wednesday. As we try to coordinate transition from inpatient to outpatient
-Comes continue to assess need for paracentesis and for thoracentesis.
DAVID:
Cr improved to 1.2 with diuresis
CAD
-stable, no angina
-cont ASA, statin
History of PVD s/p left-sided below-knee amputation
Ascites
-s/p paracentesis 11/15.
Pleural effusion.
- Monitor with diuresis.
Echo [facility] report only 10/20/2022 global hypokinesis EF 25 to 30% with severe dysfunction, RV dilated with decreased function, IVC dilated without compression PASP estimated at 60 mmHg
Physical Exam
Vital Signs/Labs
Vital Signs
Temp Pulse Resp BP Pulse Ox
98 F 69 20 155/83 97
11/21/23 11:56 11/21/23 11:56 11/21/23 11:56 11/21/23 11:56 11/21/23 11:56
11/20/23 11/21/23 11/22/23
06:59 06:59 06:59
Actual Weight 75.977 kg 75.381 kg
11/21/23 07:43
11/21/23 07:43
PT 16.2 Sec (11.4-14.6) H 11/16/23 04:23
INR 1.32 11/16/23 04:23
Magnesium 2.2 mg/dl (1.6-2.3) 11/21/23 07:43
Triglycerides 78 mg/dl (10-149) 11/16/23 04:23
LDL Cholesterol, Calc 35 mg/dl 11/16/23 04:23
VLDL Cholesterol, Calc 15 mg/dl (0-30) 11/16/23 04:23
HDL Cholesterol 62 mg/dl 11/16/23 04:23
11/15/23
15:07
Knu-K-Hcobgumttjq Pept > 61565
Physical Exam
Constitutional: No acute distress
Cardiovascular: Rhythm & rate is regular
Respiratory: Other (Decreased breath sounds left base consistent with known pleural effusion)
GI: Soft and Distention present (But softer than initial presentation)
Neuro/Psych: Alert
Data Reviewed
-
Date of Service: November 21, 2023
Medical Decision Making: Reviewed Test Results
X-Ray/CT/US/MRI/NUC/PET: Report Reviewed by me
Medical Tests (PFT, Pathology etc): Report Reviewed by me
Labs: Labs Reviewed by me
[2023-11-21 16:16] VITALS: BP 151/97
[2023-11-21 16:20] LABS: Glucose - Point of Care 245 mg/dl (70-99)
[2023-11-21] MEDS: NOVOLOG FLEXPEN-LOW RESISTANCE 2 UNITS SC (16:24)
--- NOTE | 2023-11-21 16:44 | CM ---
CM continues to follow. Wale continues to require hospital level of care at this time. He will return to [facility] when medically stable.
Plan: CM to coordinate return to [facility] when ready for discharge.
[2023-11-21 19:45] VITALS: BP 135/84
[2023-11-21 21:34] LABS: Glucose - Point of Care 288 mg/dl (70-99)
[2023-11-21] MEDS: LANTUS 0.06 UNITS SC (22:26)
[2023-11-21] MEDS: DESYREL 25 MG PO (22:27)
[2023-11-21] MEDS: DESYREL 100 MG PO (22:27)
[2023-11-21] MEDS: MELATONIN 3 MG PO (22:28)
[2023-11-21] MEDS: SENOKOT-S 1 TABLET PO (22:28)
[2023-11-21 23:55] VITALS: BP 115/70
[2023-11-22] VITALS (7 sets, daily range): BP systolic 117–134; BP diastolic 74–87; BMI 24.6
--- NOTE | 2023-11-22 05:33 | PTCARENOTE ---
Pt reports not sleeping well. No specific complaints offered as to why. Pt repositioned frequently t/o the night. PT forgets when he has been changed, shobha care provided as needed. Vital signs stable. Will continue to monitor.
[2023-11-22 07:58] LABS: Glucose - Point of Care 157 mg/dl (70-99)
[2023-11-22 08:47] LABS: Hematocrit 34.8 % (39.0-52.0); Hemoglobin 10.3 g/dL (13.0-18.0); Mean Corp Hgb Conc. 29.6 g/dL (33.0-37.0); Mean Corpuscular Hgb 26.3 pg (27.0-31.0); Mean Corpuscular Volume 88.8 fL (80.0-94.0); Platelet Count 74 10^3/uL (130-400); Red Blood Cell Count 3.92 10^6/uL (4.70-6.10); Red Cell Dist. Width 18.2 % (11.5-14.5)
--- NOTE | 2023-11-22 09:00 | W.PN.HOSP.TC ---
Today's Communication/Plan
-
Continue current care
Assessment / Plan
Assessment / Plan
Gen-AAOx3, NAD
HEENT-NC, AT, anicteric, clear oral mm
Neck-supple
CV-reg, no M, +S1/S2
Lungs-clear B/L
Abd-soft, NT, ND
Ext-right lower extremity edema, left below-knee amputation
Musculoskeletal-no cyanosis, clubbing
Skin-warm and dry
Neuro-grossly non-focal
Psych-calm, cooperative
Acute on chronic HFrEF -- suspect ischemic cardiomyopathy based off of comorbidities--TTE here showed LVEF 20%, signs of significant pulmonary hypertension as well--Home diuretic regimen includes torsemide 40 mg nightly and 60 mg in the day--Suspect
that he was not compliant with fluid and salt restriction as outpatient--cont IV lasix BID--follow I/Os--Continue with dietary restriction of sodium and fluid.
Weight has plateaued at 75 kg. Add metolazone if okay with cardiology.
Hyperkalemia--resolved.
Ascites -- secondary to heart failure, s/p fluid studies--Paracentesis with 4 L of fluid removed, received albumin following--Will continue to monitor for reaccumulation though would expect diuretics to help.
Elevated Troponin--likely acute Non-Ischemic Myocardial Injury in setting of heart failure--Troponin trending presentation not consistent with ACS--peaked at 0.039
Coronary Artery Disease -stable.
PAD s/p Left BKA
Hyperlipidemia--cont statin
Essential hypertension--Home medications include metoprolol succinate, torsemide; not on first-line agent-Seems at this time that hypotension is more of an issue and has limited his GDMT
DM2 with hyperglycemia -hemoglobin A1c 7.0%. Home regimen includes Lantus, aspart insulin, moderate intensity statin-Sliding scale insulin with Accu-Cheks added for additional coverage when needed.
Glucose 157 this morning. Currently on Lantus 6 units at bedtime, low resistance aspart scale. Increase Lantus to 8 units at bedtime, add aspart 3 units with meals.
CKD Stage IIIB-Appears that his baseline creatinine is around 1.6-1.7, presented at that range--Suspect is associated with chronic anemia, no acidemia or known bone mineral disease
Chronic Anemia -normocytic. Suspect related to chronic kidney disease. Doubt iron deficiency.
GERD-No known history of Mayorga's esophagus or erosive disease, no recent EGD--cont PPI
Insomnia-Continue Trazodone and Melatonin
DVT proph: SC Heparin
Code Status: DNR
Dispo -back to longterm ([facility]) when medically stable.
Anticipated Discharge: > 48 hours
Subjective/Interval History
-
Date of Service: November 22, 2023
Patient seen and examined. No complaints.
Objective Data
-
Labs:
Laboratory Results
11/22/23
07:36
WBC 5.0
Hgb 10.3 L
Hct 34.8 L
Plt Count 74 L
Sodium Pending
Potassium Pending
Chloride Pending
Carbon Dioxide Pending
BUN Pending
Creatinine Pending
Glucose Pending
Calcium Pending
Vital Signs:
Vital Signs
Temp Pulse Resp BP Pulse Ox
97.2 F 73 24 125/87 97
11/22/23 07:10 11/22/23 07:10 11/22/23 07:10 11/22/23 07:10 11/22/23 07:10
I&O
11/21/23 11/22/23 11/23/23
06:59 06:59 06:59
Intake Total 840 / 840 1520 / 1520
Output Total 350 / 350 150 / 150
Balance 490 / 490 1370 / 1370
Review of Systems
-
History Source: Patient
All other systems: Reviewed and negative
[2023-11-22 09:06] LABS: Blood Urea Nitrogen 51 mg/dl (9-20); Calcium 8.6 mg/dl (8.4-10.2); Carbon Dioxide 38 mmol/L (22-30); Chloride 100 mmol/L (98-107); Estimated Creatinine Clearance 63 ml/min; Glucose 165 mg/dl (70-99); Magnesium 2.3 mg/dl (1.6-2.3); Sodium 143 mmol/L (135-145); eGFR > 60.00
[2023-11-22] MEDS: VITAMIN D3 (cholecalciferol) 25 MCG PO (09:50)
[2023-11-22] MEDS: COLACE 100 MG PO (09:50)
[2023-11-22] MEDS: ASPIR LOW (ENTERIC COATED) 81 MG PO (09:50)
[2023-11-22] MEDS: HEPARIN 5000 UNITS SC (09:50)
[2023-11-22] MEDS: LIPITOR 20 MG PO (09:50)
[2023-11-22] MEDS: FEOSOL 325 MG PO (09:50)
[2023-11-22] MEDS: TOPROL XL 25 MG PO ×2 (09:50→20:09)
[2023-11-22] MEDS: LASIX 80 MG IV (09:50)
[2023-11-22] MEDS: NOVOLOG FLEXPEN-LOW RESISTANCE 1 UNITS SC (09:51)
[2023-11-22 12:26] LABS: Glucose - Point of Care 299 mg/dl (70-99)
[2023-11-22] MEDS: NOVOLOG FLEXPEN 3 UNITS SC ×2 (13:36→17:03)
[2023-11-22] MEDS: NOVOLOG FLEXPEN-LOW RESISTANCE 3 UNITS SC (13:36)
--- NOTE | 2023-11-22 14:25 | W.PN.CD ---
Today's Communication / Plan
-
start torsemide 60mg bid
add back jardiance
increase Toprol XL to 25mg bid
Impression / Plan
-
Acute on chronic systolic HF, ICM EF 25%
-Echo 11/16/2023 LV ejection fraction is 20-25%. Severely reduced left ventricular systolic function. Last echo in 2022 states EF 25% to 30%
-improved s/p IV lasix: transition to PO diuretic
-on torsemide 60/40mg as outpatient
-looks like BASILIO/ARNI/MRA stopped in past due to hyperkalemia
-K has been elevated to high normal this admission
-start torsemide 60mg bid
-add back jardiance
-increase Toprol XL to 25mg bid
DAVID:
-resolved with diuresis
CAD
-stable, no angina
-cont ASA, statin
History of PVD s/p left-sided below-knee amputation
Ascites
-s/p paracentesis 11/15.
Pleural effusion.
- Monitor with diuresis.
Echo from [place] report only 10/20/2022 global hypokinesis EF 25 to 30% with severe dysfunction, RV dilated with decreased function, IVC dilated without compression PASP estimated at 60 mmHg
Physical Exam
Vital Signs/Labs
Vital Signs
Temp Pulse Resp BP Pulse Ox
97.3 F 80 26 130/85 97
11/22/23 11:05 11/22/23 11:05 11/22/23 11:05 11/22/23 11:05 11/22/23 11:05
11/21/23 11/22/23 11/23/23
06:59 06:59 06:59
Actual Weight 75.381 kg 75.614 kg
11/22/23 07:36
11/22/23 07:36
PT 16.2 Sec (11.4-14.6) H 11/16/23 04:23
INR 1.32 11/16/23 04:23
Magnesium 2.3 mg/dl (1.6-2.3) 11/22/23 07:36
Triglycerides 78 mg/dl (10-149) 11/16/23 04:23
LDL Cholesterol, Calc 35 mg/dl 11/16/23 04:23
VLDL Cholesterol, Calc 15 mg/dl (0-30) 11/16/23 04:23
HDL Cholesterol 62 mg/dl 11/16/23 04:23
11/15/23
15:07
Rsn-I-Oamgijjpuun Pept > [id number]
Physical Exam
Constitutional: No acute distress and Comfortable
EENT: Moist mucous membranes
Cardiovascular: Rhythm & rate is regular, Pedal edema is absent, Systolic murmur absent and JVD present
Respiratory: Respiratory effort normal and Lungs clear to auscul.
GI: Soft and Distention absent
Neuro/Psych: AO x 3
Data Reviewed
-
Date of Service: November 22, 2023
EKG: Other (Tele: SR 70s)
Labs: Labs Reviewed by me
[2023-11-22] MEDS: JARDIANCE 10 MG PO (14:51)
[2023-11-22 16:56] LABS: Glucose - Point of Care 384 mg/dl (70-99)
[2023-11-22] MEDS: DEMADEX 60 MG PO (17:02)
[2023-11-22] MEDS: NOVOLOG FLEXPEN-LOW RESISTANCE 5 UNITS SC (17:03)
[2023-11-22] MEDS: TYLENOL 650 MG PO (17:07)
[2023-11-22 21:28] LABS: Glucose - Point of Care 165 mg/dl (70-99)
[2023-11-22] MEDS: LANTUS 0.08 UNITS SC (21:43)
[2023-11-22] MEDS: DESYREL 25 MG PO (21:43)
[2023-11-22] MEDS: MELATONIN 3 MG PO (21:44)
[2023-11-22] MEDS: DESYREL 100 MG PO (21:44)
[2023-11-22] MEDS: SENOKOT-S 1 TABLET PO (21:46)
[2023-11-23 03:33] VITALS: BP 116/72
[2023-11-23 05:16] VITALS: BMI 24.6
[2023-11-23 07:10] VITALS: BP 139/79
[2023-11-23 08:23] LABS: Blood Urea Nitrogen 52 mg/dl (9-20); Calcium 8.6 mg/dl (8.4-10.2); Carbon Dioxide 38 mmol/L (22-30); Chloride 99 mmol/L (98-107); Estimated Creatinine Clearance 58 ml/min; Glucose 68 mg/dl (70-99); Potassium 4.6 mmol/L (3.5-5.1); Sodium 142 mmol/L (135-145); eGFR > 60.00
[2023-11-23 08:26] LABS: Glucose - Point of Care 123 mg/dl (70-99)
[2023-11-23] MEDS: NOVOLOG FLEXPEN-LOW RESISTANCE SC (08:41)
--- NOTE | 2023-11-23 09:16 | W.PN.HOSP.TC ---
Addendum entered and electronically signed by Blaise Gray DO 11/23/23 10:18:
Stable for discharge back to [facility]. Discussed with cardiology.
Patient plans to follow-up with his vascular surgeon in the [facility] system, Dr. Forte.
Updated son on the phone. All questions answered.
Original Note:
Today's Communication/Plan
-
Await cardiology input regarding discharge plans
Assessment / Plan
Assessment / Plan
Gen-AAOx3, NAD
HEENT-NC, AT, anicteric, clear oral mm
Neck-supple
CV-reg, no M, +S1/S2
Lungs-clear B/L
Abd-soft, NT, ND
Ext-right lower extremity edema, left below-knee amputation, right distal second toe dry gangrene
Musculoskeletal-no cyanosis, clubbing
Skin-warm and dry
Neuro-grossly non-focal
Psych-calm, cooperative
Acute on chronic HFrEF -- suspect ischemic cardiomyopathy based off of comorbidities--TTE here showed LVEF 20%, signs of significant pulmonary hypertension as well--Home diuretic regimen includes torsemide 40 mg nightly and 60 mg in the day--Suspect
that he was not compliant with fluid and salt restriction as outpatient. Currently on torsemide 60 mg twice daily.
Weight has plateaued at 75 kg.
Hyperkalemia--resolved.
Ascites -- secondary to heart failure, s/p fluid studies--Paracentesis with 4 L of fluid removed, received albumin following--Will continue to monitor for reaccumulation though would expect diuretics to help.
Elevated Troponin--likely acute Non-Ischemic Myocardial Injury in setting of heart failure--Troponin trending presentation not consistent with ACS--peaked at 0.039
Coronary Artery Disease -stable.
PAD s/p Left BKA -patient follows up with vascular surgery in [place], scheduled to undergo evaluation of right second toe dry gangrene. Had prior lower extremity revascularization.
Hyperlipidemia--cont statin
Essential hypertension--Home medications include metoprolol succinate, torsemide; not on first-line agent-Seems at this time that hypotension is more of an issue and has limited his GDMT
DM2 with hyperglycemia/hypoglycemia -hemoglobin A1c 7.0%. Home regimen includes Lantus, aspart insulin, moderate intensity statin-Sliding scale insulin with Accu-Cheks added for additional coverage when needed.
Glucose 68 this morning. Lower dose of Lantus to 6 units at bedtime, continue aspart 3 units with meals. Apparently was on 10 units of Lantus at bedtime prior to admission, 8 units aspart with meals.
CKD Stage IIIB-Appears that his baseline creatinine is around 1.6-1.7, presented at that range--Suspect is associated with chronic anemia, no acidemia or known bone mineral disease
Chronic Anemia -normocytic. Suspect related to chronic kidney disease. Doubt iron deficiency.
GERD-No known history of Mayorga's esophagus or erosive disease, no recent EGD--cont PPI
Transient pancytopenia -white blood cell count recovered but remains anemic with thrombocytopenia. Will need outpatient evaluation and follow-up. Etiology unclear.
Insomnia-Continue Trazodone and Melatonin
DVT proph: SC Heparin
Code Status: DNR
Dispo -back to [facility] ([facility]) today if cleared by cardiology.
Anticipated Discharge: Today
Subjective/Interval History
-
Date of Service: November 23, 2023
Patient seen and examined. Denies shortness of breath. No complaints.
Objective Data
-
Labs:
Laboratory Results
11/23/23
06:55
Sodium 142
Potassium 4.6
Chloride 99
Carbon Dioxide 38 H
BUN 52 H
Creatinine 1.2
Glucose 68 L
Calcium 8.6
Vital Signs:
Vital Signs
Temp Pulse Resp BP Pulse Ox
97.4 F 62 20 139/79 98
11/23/23 07:10 11/23/23 07:10 11/23/23 07:10 11/23/23 07:10 11/23/23 07:10
I&O
11/22/23 11/23/23 11/24/23
06:59 06:59 06:59
Intake Total 1520 / 1520 480 / 480
Output Total 150 / 150 1100 / 1100
Balance 1370 / 1370 -620 / -620
Review of Systems
-
History Source: Patient
All other systems: Reviewed and negative
[2023-11-23] MEDS: NOVOLOG FLEXPEN 3 UNITS SC ×2 (09:47→11:20)
[2023-11-23] MEDS: DEMADEX 60 MG PO (09:47)
[2023-11-23] MEDS: COLACE 100 MG PO (09:48)
[2023-11-23] MEDS: FEOSOL 325 MG PO (09:48)
[2023-11-23] MEDS: LIPITOR 20 MG PO (09:48)
[2023-11-23] MEDS: ASPIR LOW (ENTERIC COATED) 81 MG PO (09:48)
[2023-11-23] MEDS: TOPROL XL 25 MG PO (09:48)
[2023-11-23] MEDS: VITAMIN D3 (cholecalciferol) 25 MCG PO (09:48)
[2023-11-23] MEDS: JARDIANCE 10 MG PO (09:48)
[2023-11-23] MEDS: TYLENOL 650 MG PO (09:51)
--- NOTE | 2023-11-23 10:17 | W.PN.CD ---
Today's Communication / Plan
-
continue torsemide 60mg bid, with metolazone 5mg daily prn for 2-3 lb weight gain in one day, or 5 lbs in one week
continue jardiance 10mg daily
increase Toprol XL to 50mg bid
he follows with cardiology at [facility]
discharge planning
please call us back with additional questions
Impression / Plan
-
Acute on chronic systolic HF, ICM EF 25%
-Echo 11/16/2023 LV ejection fraction is 20-25%. Severely reduced left ventricular systolic function. Last echo in 2022 states EF 25% to 30%
-improved s/p IV lasix: transition to PO diuretic
-on torsemide 60/40mg as outpatient
-looks like BASILIO/ARNI/MRA stopped in past due to hyperkalemia
-K has been elevated to high normal this admission
-continue torsemide 60mg bid, with metolazone 5mg daily prn for 2-3 lb weight gain in one day, or 5 lbs in one week
-continue jardiance 10mg daily
-increase Toprol XL to 50mg bid
DAVID:
-resolved with diuresis
CAD
-stable, no angina
-cont ASA, statin
History of PVD s/p left-sided below-knee amputation
Ascites
-s/p paracentesis 11/15.
Pleural effusion.
- Monitor with diuresis.
Echo from [place] report only 10/20/2022 global hypokinesis EF 25 to 30% with severe dysfunction, RV dilated with decreased function, IVC dilated without compression PASP estimated at 60 mmHg
Physical Exam
Vital Signs/Labs
Vital Signs
Temp Pulse Resp BP Pulse Ox
97.4 F 62 20 139/79 98
11/23/23 07:10 11/23/23 07:10 11/23/23 07:10 11/23/23 07:10 11/23/23 07:10
11/22/23 11/23/23 11/24/23
06:59 06:59 06:59
Actual Weight 75.614 kg 75.387 kg
11/22/23 07:36
11/23/23 06:55
PT 16.2 Sec (11.4-14.6) H 11/16/23 04:23
INR 1.32 11/16/23 04:23
Magnesium 2.3 mg/dl (1.6-2.3) 11/22/23 07:36
Triglycerides 78 mg/dl (10-149) 11/16/23 04:23
LDL Cholesterol, Calc 35 mg/dl 11/16/23 04:23
VLDL Cholesterol, Calc 15 mg/dl (0-30) 11/16/23 04:23
HDL Cholesterol 62 mg/dl 11/16/23 04:23
11/15/23
15:07
Tou-R-Lcpejquxrsd Pept > [id number]
Physical Exam
Constitutional: No acute distress and Comfortable
EENT: Moist mucous membranes
Cardiovascular: Rhythm & rate is regular, Pedal edema is absent, Systolic murmur absent and JVD present
Respiratory: Respiratory effort normal and Lungs clear to auscul.
GI: Soft and Distention absent
Neuro/Psych: Alert and Oriented
Data Reviewed
-
Date of Service: November 23, 2023
EKG: Other (Tele: SR 70s)
Labs: Labs Reviewed by me
[2023-11-23 10:27] VITALS: PULSE 63; O2SAT 97
--- NOTE | 2023-11-23 10:50 | W.DS.TRANS ---
DC Summary - Youth Officer
-
Discharge Instructions:
Sleep Apnea Risk Intermediate
Discharge Diagnosis/Procedures Acute heart failure exacerbation
Diet Diabetic, Carb Controlled,2 Gram Sodium,Other
diet,Restrict fluids to 48 oz
Additional Diets 2 Gram potassium
Activity As tolerated
Driving Restrictions No driving
Bathing Restrictions None
Blood Work BMP in 1 week
Instructions: *PCP/Other Certified Detention Deputy Heart Failure Instructions
Stand-Alone Forms:
Changes to Home Medications: No
Discharge Medications:
DC Medications w/original date entered in [employer]
acetaminophen 325 mg tablet 650 mg PO Q6HPRN PRN mild pain 11/15/23
atorvastatin 20 mg tablet 20 mg PO DAILY High Cholesterol 11/15/23
bisacodyl 10 mg rectal suppository (Dulcolax (bisacodyl)) [address] DAILYPRN PRN no bm after mom 11/15/23
cholecalciferol (vitamin D3) 25 mcg (1,000 unit) tablet (Vitamin D3) 25 mcg PO DAILY Supplement 11/15/23
diclofenac sodium 1 % topical gel 2 g topical DAILY Pain 11/15/23
docusate sodium 100 mg capsule (Colace) 100 mg PO DAILY Constipation 11/15/23
ferrous sulfate 325 mg (65 mg iron) tablet 325 mg PO DAILY Supplement 11/15/23
insulin aspart (niacinamide) (U-100) 100 unit/mL subcutaneous solution (Fiasp U-100 Insulin) 8 unit SC MEALS Diabetes 11/15/23
insulin glargine 100 unit/mL (3 mL) subcutaneous pen (Basaglar KwikPen U-100 Insulin) 10 unit SC HS Diabetes 11/15/23
magnesium hydroxide 400 mg/5 mL oral suspension (Milk of Magnesia) 30 ml PO [id number] PRN no bm 3 days 11/15/23
melatonin 3 mg tablet 3 mg PO HS Sleep 11/15/23
omeprazole 20 mg capsule,delayed release 20 mg PO DAILY Gastrointestinal Issue 11/15/23
povidone-iodine 10 % topical solution (Betadine) 1 applic topical DAILY R 2nd toe 11/15/23
sennosides 8.6 mg-docusate sodium 50 mg tablet 2 tab-cap PO HS Constipation 11/15/23
sodium phosphates 19 gram-7 gram/118 mL enema (Fleet Enema) [address] DAILYPRN PRN if no bm after dulcolax 11/15/23
trazodone 100 mg tablet 100 mg PO HS sleep/mental health 11/15/23
trazodone 50 mg tablet 25 mg PO HS sleep/mental health 11/15/23
aspirin 81 mg tablet,delayed release 81 mg PO DAILY #0 tabs 11/23/23
empagliflozin 10 mg tablet (Jardiance) 10 mg PO DAILY #0 tabs 11/23/23
metolazone 5 mg tablet 5 mg PO DAILY PRN weight gain #10 tabs 11/23/23
metoprolol succinate 50 mg tablet,extended release 24 hr 50 mg PO BID #0 tabs 11/23/23
torsemide 20 mg tablet 60 mg (3 x 20 mg) PO BID@0800,1600 #0 tabs 11/23/23
Home Medication Changes
Pending Results: No
[2023-11-23 11:06] LABS: Glucose - Point of Care 189 mg/dl (70-99)
--- NOTE | 2023-11-23 11:08 | CM ---
CM notified of discharge for today. Ambulance transport requested for discharge back to [facility]; [facility] Facility requests 2pm transport. CM contacted Wale's son to make him aware of discharge plan for today.
Plan: Return to [facility] today via ambulance. Patient and family are aware.
[facility] Report:[phone]
[facility] Report:[phone]
[2023-11-23] MEDS: NOVOLOG FLEXPEN-LOW RESISTANCE 1 UNITS SC (11:21)
[2023-11-23 12:18] VITALS: BP 128/80
--- NOTE | 2023-11-26 07:56 | W.HF.CON ---
Heart Failure
- LV Function
Left ventricular function study result: LV Ejection fraction </= 35%
Ejection Fraction Percentage: 20-25
- ARNI
Patient already on ARNI: No
Heart Failure ARNI Contraindication: Hyperkalemia
- ACEI/ARB
Patient already on ACEI/ARB: No
Heart Failure ACEI/ARB Contraindication: Hyperkalemia
- Beta Tarun
Patient already on Evidence Based Beta Tarun: Yes
- Mineralocorticord Receptor Antagonist
Patient already on MRA: No
Heart Failure MRA Contraindication: Hyperkalemia - serum >5
- SGLT-2 Inhibitor
Patient already on SGLT-2 Inhibitor: Yes
- NYHA CHF Classification
NYHA CHF Classification Level: Class III - Symptoms w/ min exertion, interferes w/ nml daily activity
- ACC/AHA Stage
ACC/AHA Stage: Stage C: Symptomatic Heart Failure
== END 2023-11-23 15:04 | DRG 291 ==
LOC: 4 EAST ACU 18:36
PROVIDERS: Internal Medicine; Physician Assistant; Physician Assistant Medical; Radiology Vascular & Interventional Radiology; ADMITTING PHYSICIAN Student in an Organized Health Care Education/Training Program; ATTENDING PHYSICIAN Hospitalist; EMERGENCY PHYSICIAN Emergency Medicine; FAMILY PHYSICIAN Family Medicine; OTHER PHYSICIAN Internal Medicine Cardiovascular Disease
PROC: 0W9G3ZZ Drainage of Peritoneal Cavity, Percutaneous Approach (ICD-10-PCS; 2023-11-16)
DX: I13.0 Hypertensive heart and chronic kidney disease with heart failure and stage 1 through stage 4 chronic kidney disease, or unspecified chronic kidney disease (principal); I50.23 Acute on chronic systolic (congestive) heart failure; E11.52 Type 2 diabetes mellitus with diabetic peripheral angiopathy with gangrene; J98.11 Atelectasis; R18.8 Other ascites; N17.9 Acute kidney failure, unspecified; I5A Non-ischemic myocardial injury (non-traumatic); R09.02 Hypoxemia; I25.10 Atherosclerotic heart disease of native coronary artery without angina pectoris; I25.5 Ischemic cardiomyopathy; E87.5 Hyperkalemia; I27.20 Pulmonary hypertension, unspecified; I50.82 Biventricular heart failure; D64.9 Anemia, unspecified; G47.00 Insomnia, unspecified; I44.0 Atrioventricular block, first degree; K21.9 Gastro-esophageal reflux disease without esophagitis; E78.5 Hyperlipidemia, unspecified; N18.32 Chronic kidney disease, stage 3b; E11.22 Type 2 diabetes mellitus with diabetic chronic kidney disease; Z66 Do not resuscitate; Z87.891 Personal history of nicotine dependence; Z89.512 Acquired absence of left leg below knee; Z79.4 Long term (current) use of insulin; Z91.148 Patient's other noncompliance with medication regimen for other reason
CPT/HCPCS: 88305; 49083; 71046; 76700; 80048; 80053; 80061; 82042; 82150; 82607; 82728; 82746; 82962; 83036; 83540; 83550; 83615; 83735; 83880; 84100; 84132; 84157; 84443; 84484; 85025; 85027; 85610; 87015; 87070; 87205; 88112; 89051; 93005; 93306; 97112; 97163; 97167; 97530; 99285; Q9950

== ENCOUNTER 2023-12-30 17:08 | Inpatient (IN) | payer MEDICARE, SELFPAY ==
[2023-12-30] VITALS (9 sets, daily range): BP systolic 112–132; BP diastolic 75–88; BMI 27.4
[2023-12-30 14:59] LABS: % Basophils 0.4 % (0-2); % Eosinophils 1.5 % (0-6); % Immature Granulocytes 0.6 % (0-0.5); % Lymphocytes 9.5 % (20.5-51.1); % Monocytes 7.9 % (1.7-9.3); % Neutrophils 80.1 % (42.2-75.2); Absolute Eosinophils 0.1 10^3/uL (0-0.7); Absolute Lymphocytes 0.7 10^3/uL (1.2-3.4); Absolute Monocytes 0.5 10^3/uL (0.1-0.6); Absolute Neutrophils 5.5 10^3/uL (1.4-6.5); Hematocrit 35.7 % (39.0-52.0); Hemoglobin 10.9 g/dL (13.0-18.0); Mean Corp Hgb Conc. 30.5 g/dL (33.0-37.0); Mean Corpuscular Hgb 26.5 pg (27.0-31.0); Mean Corpuscular Volume 86.9 fL (80.0-94.0); Mean Platelet Volume 10.8 fL (7.4-10.4); Nucleated Red Blood Cells % 0 % (-); Platelet Count 115 10^3/uL (130-400); Red Blood Cell Count 4.11 10^6/uL (4.70-6.10); Red Cell Dist. Width 18.5 % (11.5-14.5); White Blood Cell Count 6.8 10^3/uL (4.8-10.8)
[2023-12-30 15:12] LABS: ALT (SGPT) 22 U/L (0-50); AST (SGOT) 49 U/L (17-59); Albumin 3.7 g/dl (3.5-5.0); Alkaline Phosphatase 400 U/L (38-126); Blood Urea Nitrogen 87 mg/dl (9-20); Calcium 8.7 mg/dl (8.4-10.2); Carbon Dioxide 29 mmol/L (22-30); Chloride 99 mmol/L (98-107); Estimated Creatinine Clearance 46 ml/min; Glucose 111 mg/dl (70-99); Lipase 115 U/L (23-300); Potassium 5.7 mmol/L (3.5-5.1); Sodium 139 mmol/L (135-145); Total Bilirubin 0.9 mg/dl (0.2-1.3); Total Protein 7.1 g/dl (6.3-8.2); eGFR 50.08
[2023-12-30 15:19] LABS: NT-proBNP > 27000 pg/ml
--- NOTE | 2023-12-30 15:25 | ED.GENMED ---
History of Present Illness
General
Chief Complaint: Abdominal Pain
Source: patient and records
Exam Limitations: none
Time Seen by Provider: 12/30/23 13:55
Nursing documentation reviewed up to this point in time: agreed with
History of Present Illness
History of Present Illness:
68-year-old male from a local care facility presents with fatigue shortness of breath abdominal distention
History of heart failure cardiomyopathy peripheral vascular disease status post amputation
Diabetes,
Past History
Past History
ED Past Medical History: CHF and IDDM
ED Past Surgical History: Orthopedic
Social History
Tobacco: Non-smoker
Alcohol: None
Drug: None
Living: usp
Employment: Not employed
Family History
Family History: Diabetes
Review of Systems
Review of Systems
All Other Systems: Not applicable
Constitutional: Denies fever or fatigue
EENT: Reports no symptoms
Respiratory: Reports trouble breathing
Cardiac: Denies chest pain
ABD/GI: Reports abdominal pain (Distention)
: Reports no symptoms
Musculoskeletal: Reports edema
Neurological: Reports no symptoms
Endocrine: Reports no symptoms
Phy Exam
Physical Exam
Physical Exam:
Physical Exam
General: Dyspneic tachypneic male
Neck: Positive JVD
Heart: Regular with murmur
Lungs: n tachypneic with
Abdomen: Distended with ascites
Neuro: alert and oriented. no focal neurological deficits
Skin: no rash
Psychiatric: cooperative
Extremities: Warm and red right lower extremity status post amputation left lower
Course
Orders/Labs/Results
Orders:
Orders
12/30/23 14:48
CMP [Comprehensive Metabolic Panel] Urgent
Complete Blood Count/With Diff Urgent
Lipase Urgent
Pro-BNP [NT-proBNP] Urgent
12/30/23 14:53
Electrocardiogram (*1) Urgent
Reason for Study: Palpitations
EKG- Treatment ONCE
12/30/23 14:54
CR Chest - 2 Views Urgent
Comment:
Reason For Exam: sob
Abdominal Ltd US [US Abdomen Limited] Urgent
Comment:
Reason For Exam: ascites
12/30/23 15:10
Prothrombin Time Urgent
12/30/23 15:35
Furosemide [Lasix] 80 mg IV NOW STA
Abnormal Lab Results
12/30/23 12/30/23
14:48 15:10
RBC 4.11 L 10^6/uL
(4.70-6.10)
Hgb 10.9 L g/dL
(13.0-18.0)
Hct 35.7 L %
(39.0-52.0)
MCH 26.5 L pg
(27.0-31.0)
MCHC 30.5 L g/dL
(33.0-37.0)
RDW 18.5 H %
(11.5-14.5)
Plt Count 115 L 10^3/uL
(130-400)
MPV 10.8 H fL
(7.4-10.4)
Absolute Lymphs (auto) 0.7 L 10^3/uL
(1.2-3.4)
Immature Gran % 0.6 H %
(0-0.5)
Neutrophils % 80.1 H %
(42.2-75.2)
Lymphocytes % 9.5 L %
(20.5-51.1)
PT 15.4 H Sec
(11.4-14.6)
Potassium 5.7 H mmol/L
(3.5-5.1)
BUN 87 H mg/dl
(9-20)
Creatinine 1.5 H mg/dL
(0.7-1.3)
Glucose 111 H mg/dl
(70-99)
Alkaline Phosphatase 400 H U/L
(38-126)
12/30/23 14:48
12/30/23 14:48
Vital Signs
Initial and Last Documented VS:
Initial Vital Signs
Pulse Resp Pulse Ox
67 17 99
12/30/23 13:50 12/30/23 13:50 12/30/23 13:50
Last Documented Vital Signs
Temp Pulse Resp BP Pulse Ox
97.7 F 70 19 114/80 99
12/30/23 13:51 12/30/23 14:45 12/30/23 14:45 12/30/23 14:00 12/30/23 14:28
MDM/Problems Addressed
Differential Diagnosis Includes:
Heart failure ascites pneumonia renal failure
MDM/Problems Addressed:
Shortness of breath fatigue abdominal distention
Chronic conditions affecting care: DM, HTN, Cardiomyopathy and PVD
Acute Exacerbation and/or Progression of Chronic Illness: DM, HTN, Cardiomyopathy and PVD
*Radiology
Radiology exam reviewed: preliminary read by ED provider
*Pulse Oximetry
Patient hypoxic: yes
*EKG
Interpreted by ED Provider?: Yes
Interpretation: abnormal
Comparison EKG: no comparison EKG present
Heart Rate: 78
Rate: normal
Rhythm: sinus
Ischemia: non-specific ST changes
*[employer] Interpretation
Rate: normal
Interpretation: normal
Heart Rate: 78
Rhythm: sinus
*Critical Care Note
Total Time (30-74mins, 75-104mins- exclusive of procedures): 15
Data Reviewed
Review of Other/Old Records Reveals: Labs, Radiology Studies, Progress Notes and Discharge Summary
Source: patient and records
Update Note
Update Note:
Update prior records reviewed cardiomyopathy had a large-volume paracentesis 4000 cc, looks likely volume overloaded again, had been on furosemide and as needed metolazone, ultrasound ordered, will require admission
ED Attending Note
-
Portions of this chart may have been created with voice recognition software.� Occasional wrong word or��sound alike� substitutions may have occurred due to the inherent limitations of voice recognition software.
Discharge Plan
Departure
Patient Disposition: Admit
Date of Disposition: 12/30/23
Time of Disposition: 15:59
Presentation/result/management discussed w/ accepting MD/DO: Hospitalist
Patient with high blood pressure during this ER visit?: Yes
Condition: Fair
Covid-19: Not Applicable
Discharge Problem:
Acute CHF (congestive heart failure), Pleural effusion, not elsewhere classified, Ascites, Stage 3b chronic kidney disease, Atelectasis, Hypoxia, Diabetes
Prescriptions:
No Action
atorvastatin 20 mg Tablet
20 mg PO DAILY
trazodone 50 mg Tablet
25 mg PO HS
Rx Instructions:
take with 100mg for total of 125 mg
sennosides-docusate sodium 8.6-50 mg Tablet
2 tab-cap PO HS
melatonin 3 mg Tablet
3 mg PO HS
magnesium hydroxide [Milk of Magnesia] 400 mg/5 mL Suspension
30 ml PO [id number] PRN (Reason: no bm 3 days)
trazodone 100 mg Tablet
100 mg PO HS
Rx Instructions:
give with 25mg for total of 125mg
bisacodyl [Dulcolax (bisacodyl)] 10 mg Suppository
10 mg AK DAILYPRN PRN (Reason: no bm after mom)
ferrous sulfate 325 mg (65 mg iron) Tablet
325 mg PO DAILY
docusate sodium [Colace] 100 mg Capsule
100 mg PO DAILY
omeprazole 20 mg Capsule,Delayed Release(Dr/Ec)
20 mg PO DAILY
cholecalciferol (vitamin D3) [Vitamin D3] 25 mcg (1,000 unit) Tablet
50 mcg PO DAILY
insulin glargine [Basaglar KwikPen U-100 Insulin] 100 unit/mL (3 mL) Insulin Pen
8 unit SC HS
aspirin 81 mg Tablet,Delayed Release (Dr/Ec)
81 mg PO DAILY Qty: 0 0RF
polyethylene glycol 3350 [Miralax] 17 gram Powder In Packet
17 g PO DAILYPRN PRN (Reason: constipation)
clopidogrel [Plavix] 75 mg Tablet
75 mg PO DAILY
acetaminophen 500 mg Tablet
1,000 mg PO Q8HPRN PRN (Reason: mild pain)
spironolactone 25 mg Tablet
25 mg PO DAILY
albuterol sulfate 90 mcg/actuation Hfa Aerosol Inhaler
2 puff INHALATION R QID
oxycodone 5 mg Tablet
5 mg PO Q4HPRN PRN (Reason: severe pain)
insulin lispro [Humalog KwikPen Insulin] 100 unit/mL Insulin Pen
8 unit SC AC
torsemide 20 mg tablet
80 mg PO BID
metoprolol succinate 50 mg tablet extended release 24 hr
50 mg PO DAILY
Referrals:
Hai Sorensen MD [Family Provider] -
Interventions
Interventions:
*Risk Screen - Suicide Last Done: 12/30/23 13:57
*Neglect/Abuse Screening Last Done: 12/30/23 13:57
ED- Fall Risk Assessment Last Done: 12/30/23 13:59
*ED COVID-19 Vaccine History Last Done: 12/30/23 13:56
GF-Nxvevp-Absyvjwkgf Assessment Last Done: 12/30/23 13:57
Discharge Date and Time
Print Language: TURKISH
[2023-12-30 15:36] LABS: INR 1.22; PT 15.4 Sec (11.4-14.6)
[2023-12-30] MEDS: LASIX 80 MG IV (16:18)
--- NOTE | 2023-12-30 16:29 | HPS.HSE ---
Family Physician
-
Family Physician: Hai Sorensen
Chief Complaint
-
fatigue , shortness of breath abdominal distention
History of Present Illness
68M [facility] Res [facility] chr HfrEF, CAD, DM, and CKD pw fatigue , shortness of breath abdominal distention increased abdominal swelling x 5 weeks.
- Pt reports increased abdominal swelling attributed to CHF.
- Patient reports weight gain from 140 to 190 lbs and states his condition is getting worse every day-
- 'it's uncomfortable','enough is enough', and 'doesn't want to do this anymore'. Pt reports he was previously on furosemide and switched to torsemide roughly 1 week ago.
- He notes increased urination but no significant change in weight.
- He does not follow low Na diet or fluid restriction.
- He states he recently changed drinking orange/apple juice to vegetable juice at breakfast.
- He reports paracentesis performed last year removed 6.5 quarts of fluid. He also reports increasing SOB x 1.5 wks when he weighed about 165lbs. He denies fever, chest pain, palpitations, and cough.
Medical History
Past Medical History
Past Medical History: Reports Other
Additional Past Medical History:
Coronary Artery Disease
Peripheral Vascular Disease
Cardiomyopathy
Congestive Heart Failure
Essential Hypertension
Hyperlipidemia
Diabetes Mellitus, Type II
CKD Stage IIIB
Chronic Anemia
GERD
Past Surgical History: Reports Orthopedic (Lt BKA )
Social History
Tobacco: Non-smoker
Alcohol: None
Living: Assisted
Family History
Family History: Not pertinent
Allergies / Home Medications
Allergies reflects when Allergies were last updated in [facility].
Home Medications with original date entered in [facility]
Allergy/Medication List:
Allergies
Allergy/AdvReac Type Severity Reaction Status Date / Time
No Known Allergies Allergy Unverified 11/15/23 13:15
Home Medications
atorvastatin 20 mg tablet 20 mg PO DAILY High Cholesterol 11/15/23
bisacodyl 10 mg rectal suppository (Dulcolax (bisacodyl)) [address] DAILYPRN PRN no bm after mom 11/15/23
cholecalciferol (vitamin D3) 25 mcg (1,000 unit) tablet (Vitamin D3) 50 mcg PO DAILY Supplement 11/15/23
docusate sodium 100 mg capsule (Colace) 100 mg PO DAILY Constipation 11/15/23
ferrous sulfate 325 mg (65 mg iron) tablet 325 mg PO DAILY Supplement 11/15/23
insulin glargine 100 unit/mL (3 mL) subcutaneous pen (Basaglar KwikPen U-100 Insulin) 8 unit SC HS Diabetes 11/15/23
magnesium hydroxide 400 mg/5 mL oral suspension (Milk of Magnesia) 30 ml PO [id number] PRN no bm 3 days 11/15/23
melatonin 3 mg tablet 3 mg PO HS Sleep 11/15/23
omeprazole 20 mg capsule,delayed release 20 mg PO DAILY Gastrointestinal Issue 11/15/23
sennosides 8.6 mg-docusate sodium 50 mg tablet 2 tab-cap PO HS Constipation 11/15/23
trazodone 100 mg tablet 100 mg PO HS sleep/mental health 11/15/23
trazodone 50 mg tablet 25 mg PO HS sleep/mental health 11/15/23
aspirin 81 mg tablet,delayed release 81 mg PO DAILY #0 tabs 11/23/23
acetaminophen 500 mg tablet 1,000 mg PO Q8HPRN PRN mild pain 12/30/23
albuterol sulfate 90 mcg/actuation aerosol inhaler 2 puff inhalation R QID 12/30/23
clopidogrel 75 mg tablet (Plavix) 75 mg PO DAILY 12/30/23
insulin lispro 100 unit/mL subcutaneous pen (Humalog KwikPen (U-100) Insulin) 8 unit SC AC 12/30/23
metoprolol succinate 50 mg tablet,extended release 24 hr 50 mg PO DAILY 12/30/23
oxycodone 5 mg tablet 5 mg PO Q4HPRN PRN severe pain 12/30/23
polyethylene glycol 3350 17 gram oral powder packet (Miralax) 17 g PO DAILYPRN PRN constipation 12/30/23
spironolactone 25 mg tablet 25 mg PO DAILY 12/30/23
torsemide 20 mg tablet 80 mg PO BID 12/30/23
Review of Systems
-
Constitutional: Reports See HPI and Weight Gain
EENT: Reports No Symptoms
Respiratory: Reports See HPI and Trouble Breathing
Cardiac: Reports No Symptoms
Abdomen/GI: Reports No Symptoms
: Reports No Symptoms
Musculoskeletal: Reports No Symptoms
Skin: Reports No Symptoms
Neurological: Reports No Symptoms
Endocrine: Reports No Symptoms
Hematologic/Lymphatic: Reports No Symptoms
Psych: Reports No Symptoms
Physical Exam
Vital Signs
Vital Signs
Temp Pulse Resp BP Pulse Ox
97.7 F 67 19 120/88 99
12/30/23 13:51 12/30/23 16:18 12/30/23 14:45 12/30/23 16:18 12/30/23 14:28
Physical Exam
General: Comfortable and Conversant
HEENT: Anicteric and Moist mucous membranes
Respiratory: Non Labored Respirations and Other (Decreased breath sounds bilateral bases)
Cardiac: S1/S2, Regular Rhythm, Murmur and JVD (POS JVD )
GI: Soft, Non Tender, Distended and Other ( Distended with ascites)
Rectal: Deferred by Provider
Musculoskeletal: No Clubbing, No Cyanosis and Other (Warm and red right lower extremity status post amputation left lower)
Skin: Warm and Dry
Neuro: Awake, Alert, Oriented and Nonfocal/grossly intact
Psych: Calm
Laboratory Results
-
12/30/23 14:48
12/30/23 14:48
Laboratory Results
PT 15.4 Sec (11.4-14.6) H 12/30/23 15:10
INR 1.22 12/30/23 15:10
Total Bilirubin 0.9 mg/dl (0.2-1.3) 12/30/23 14:48
AST 49 U/L (17-59) 12/30/23 14:48
ALT 22 U/L (0-50) 12/30/23 14:48
Alkaline Phosphatase 400 U/L (38-126) H 12/30/23 14:48
Lipase 115 U/L (23-300) 12/30/23 14:48
Data Reviewed
-
Diagnostic Radiology: Report Reviewed by me
Medical Tests (Nuc Med, Echo, EKG etc): Report Reviewed by me
Lab Data: Labs Reviewed by me
Old Records: Reviewed
Impression/Plan
-
Vital Signs
Temp Pulse Resp BP Pulse Ox
97.7 F 67 19 120/88 99
12/30/23 13:51 12/30/23 16:18 12/30/23 14:45 12/30/23 16:18 12/30/23 14:28
Laboratory Tests
11/15/23 11/22/23 11/23/23
15:07 07:36 06:55
WBC
Hgb 10.3 L
INR
Sodium
Potassium
Carbon Dioxide
BUN
Creatinine 1.2
eGFR > 60.00
Alkaline Phosphatase
Aaq-P-Mnunypdjvuw Pept > 64928
Lipase
12/30/23 12/30/23
14:48 15:10
WBC 6.8
Hgb 10.9 L
INR 1.22
Sodium 139
Potassium 5.7 H
Carbon Dioxide 29
BUN 87 H
Creatinine 1.5 H
eGFR 50.08
Alkaline Phosphatase 400 H
Mhk-H-Erfccwtzzwy Pept > 93145
Lipase 115
CXR
Cardiomegaly with a moderate left pleural effusion and associated atelectasis.
There is an opacity projecting over the left midlung which may represent loculated fluid in the fissure or bandlike atelectasis.
Abdo US; pending report
Echo 11/16/2023
LV ejection fraction is 20-25%. Severely reduced left ventricular systolic function.
Last echo in 2022 states EF 25% to 30%
EKG
POOR DATA QUALITY, INTERPRETATION MAY BE ADVERSELY AFFECTED
SINUS RHYTHM WITH 1ST DEGREE A-V BLOCK WITH OCCASIONAL PREMATURE VENTRICULAR COMPLEXES
LEFT BUNDLE BRANCH BLOCK
ABNORMAL ECG
[facility] COMPARED WITH ECG OF 15-NOV-2023 15:23,
PREMATURE VENTRICULAR COMPLEXES ARE NOW PRESENT
LEFT BUNDLE BRANCH BLOCK IS NOW PRESENT
BORDERLINE CRITERIA FOR ANTERIOR INFARCT ARE NO LONGER PRESENT
BORDERLINE CRITERIA FOR ANTEROLATERAL INFARCT ARE NO LONGER PRESENT
Last hospitalist admission:
DATE OF ADMISSION: 11/15/2023 - DATE OF DISCHARGE: 11/23/2023
DISCHARGE DIAGNOSES:
1. Acute on chronic heart failure, reduced ejection fraction.
2. Hyperkalemia.
3. Cardiac ascites.
4. Acute nonischemic myocardial injury.
ASSESSMENT & PLAN
Acute on chronic systolic HF
HX CM EF 25%
Seems like BASILIO/ARNI/MRA stopped in past due to hyperkalemia
- IV lasix
- Hold torsemide 60/40mg as outpatient
- daily Wt, IOS, daily BMP
- CBC card consult
DAVID - suspect cardiorenal syndrome
CKD Stage IIIB
Chronic Anemia due to
-Continue iron supplement
- IV Diuresis and f/u K
- Monitor Creatinine closely while on diuretics
Hyperkalemia
K has been elevated to high IV Lasix
Seems like BASILIO/ARNI/MRA stopped in past due to hyperkalemia
- Held spironolactone
- c/w Jardiance 10mg daily
- c/w Toprol XL to 50mg bid
- c/w low potassium diet
-Recheck potassium level later this evening
Ascites secondary to CHF -Paracentesis with 4 L of fluid removed
Large volume overload
- Consult IR for paracentesis
Coronary Artery Disease
Peripheral Vascular Disease s/p Left BKA
- c/w Aspirin
Essential Hypertension
- c/w metoprolol
Hyperlipidemia
- c/w atorvastatin
DMT2
-Continue Basaglar and Insulin Aspart
- add ISS low
Insomnia
-Continue Trazodone and Melatonin
GERD
-Continue Protonix
DVT Px : SC Heparin
Code Status: DNR confirmed by patient in the presence of
IP TLM
--- NOTE | 2023-12-30 17:23 | CON.CAR ---
Addendum entered and electronically signed by Faisal Yadav MD 12/30/23 18:04:
I saw and examined the patient.
The PUBLIC HEALTH NURSE's note was reviewed and I agree with the note.
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
68-year-old male with complex medical history, ischemic cardiomyopathy ejection fraction 20 to 25%, coronary artery disease, peripheral arterial disease, left BKA ascites and previous paracenteses diabetes and CKD who presents with weight gain and
complaints of increased abdominal distention.He had a hospitalization at the end of October/beginning of November and was discharged on 12/13 from [facility] at that point he had some issues with heart failure he received additional
diuretics and was ultimately discharged with plans with follow-up with his primary fleet manager/dispatch. Reportedly patient had another hospitalization at [facility] for toe amputation. He thinks it was December 06 he was there for a couple days
unclear if medications were adjusted at that time. He states that over the last month his breathing is just not as good as able he would like it to be he has not had any acute increase in shortness of breath but is noticed his abdomen has had
increased his distention.
-Heart failure reduced ejection fraction. Challenging management considering all the issues above. Medical therapy limited due to a combination of factors including patient's blood pressure as well as rising creatinine. In addition patient has
now developed hyperkalemia while being maintained on spironolactone.
-Stop spironolactone
-Diuresis with Lasix
-Close monitoring of blood pressure and labs.
-Monitor renal function with diuretics.
-Patient be assessed for possible paracentesis with hospitalist already consulting IR.
-Patient may also require left thoracentesis for pleural effusion.
-Long-term follow-up will be with his primary fleet manager/dispatch at [facility]
Original Note:
Consultation
Consultation Request
Date/Time Consultation Requested: 12/30/23 [id number]
Date/Time Consultation Performed: 12/30/23 1700
Requesting Provider: Dr. Kang
Performing Provider: Shaniqua GUTIERREZ for Dr. Yadav
Reason for Consultation: CHF
Medical History
-
Chief Complaint: abdominal distension
History of Present Illness:
68 y/o male with ICM EF 20-25%, CAD, PVD with left BKA, ascites s/p paracentesis, pleural effusion, DM, CKD who is here with abdominal distension noted over the past few weeks. His weight is up about 18 lbs since last admit (where he was diuresed
during hospitalization 10/2023). He is on torsemide 80 mg PO BID as OP. He reports that he had a recent toe amputation at [facility] for gangrene. His fleet manager/dispatch is at [facility]. He has SOB, but this is chronic and he does not feel it is
worse, though he has increased WOB to my review. He is in no distress at the time of my assessment and he reports he would like to eat, which I relayed to nursing.
Past Medical History
Past Medical History: CAD, CHF, IDDM and Other (as above)
Social History
Living: [facility]
Family History
Family History: Reviewed & Not Pertinent
Allergies / Home Medications
Allergy/AdvReac Type Severity Reaction Status Date / Time
No Known Allergies Allergy Unverified 11/15/23 13:15
�Medication �Instructions �Recorded �Confirmed �Type
atorvastatin 20 mg tablet 20 mg PO DAILY High Cholesterol 11/15/23 12/30/23 History
bisacodyl 10 mg rectal suppository 10 mg MA DAILYPRN PRN no bm after 11/15/23 12/30/23 History
(Dulcolax (bisacodyl)) mom
cholecalciferol (vitamin D3) 25 50 mcg PO DAILY Supplement 11/15/23 12/30/23 History
mcg (1,000 unit) tablet (Vitamin
D3)
docusate sodium 100 mg capsule 100 mg PO DAILY Constipation 11/15/23 12/30/23 History
(Colace)
ferrous sulfate 325 mg (65 mg 325 mg PO DAILY Supplement 11/15/23 12/30/23 History
iron) tablet
insulin glargine 100 unit/mL (3 8 unit SC HS Diabetes 11/15/23 12/30/23 History
mL) subcutaneous pen (Basaglar
KwikPen U-100 Insulin)
magnesium hydroxide 400 mg/5 mL 30 ml PO [id number] PRN no bm 3 days 11/15/23 12/30/23 History
oral suspension (Milk of Magnesia)
melatonin 3 mg tablet 3 mg PO HS Sleep 11/15/23 12/30/23 History
omeprazole 20 mg capsule,delayed 20 mg PO DAILY Gastrointestinal 11/15/23 12/30/23 History
release Issue
sennosides 8.6 mg-docusate sodium 2 tab-cap PO HS Constipation 11/15/23 12/30/23 History
50 mg tablet
trazodone 100 mg tablet 100 mg PO HS sleep/mental health 11/15/23 12/30/23 History
trazodone 50 mg tablet 25 mg PO HS sleep/mental health 11/15/23 12/30/23 History
aspirin 81 mg tablet,delayed 81 mg PO DAILY #0 tabs 11/23/23 12/30/23 Rx
release
acetaminophen 500 mg tablet 1,000 mg PO Q8HPRN PRN mild pain 12/30/23 12/30/23 History
albuterol sulfate 90 mcg/actuation 2 puff inhalation R QID 12/30/23 12/30/23 History
aerosol inhaler
clopidogrel 75 mg tablet (Plavix) 75 mg PO DAILY 12/30/23 12/30/23 History
insulin lispro 100 unit/mL 8 unit SC AC 12/30/23 12/30/23 History
subcutaneous pen (Humalog KwikPen
(U-100) Insulin)
metoprolol succinate 50 mg 50 mg PO DAILY 12/30/23 12/30/23 History
tablet,extended release 24 hr
oxycodone 5 mg tablet 5 mg PO Q4HPRN PRN severe pain 12/30/23 12/30/23 History
polyethylene glycol 3350 17 gram 17 g PO DAILYPRN PRN constipation 12/30/23 12/30/23 History
oral powder packet (Miralax)
spironolactone 25 mg tablet 25 mg PO DAILY 12/30/23 12/30/23 History
torsemide 20 mg tablet 80 mg PO BID 12/30/23 12/30/23 History
Review of Systems
-
History Source: Patient
All other systems: Negative unless noted
Constitutional: Weight Gain
Respiratory: Trouble Breathing
Abdomen/GI: Other (distension)
Physical Exam
Vital Signs
Temp Pulse Resp BP Pulse Ox
97.7 F 64 18 112/75 98
12/30/23 13:51 12/30/23 17:00 12/30/23 17:00 12/30/23 17:00 12/30/23 17:00
Lab Results
12/30/23 14:48
12/30/23 14:48
Fcr-L-Xrohyutbtza Pept > 58709 pg/ml 12/30/23 14:48
Physical Exam
General: No Apparent Distress
HEENT: Normocephalic and Anicteric
Respiratory: Other (diminished to based, on O2 by NC)
Cardiac: Regular Rhythm
GI: Distended
Musculoskeletal: Edema (milde RLE edema)
Skin: Warm and Dry
Neuro: AO x 3
Psych: Calm
Impression / Plan
-
Ipfvu-uo-zkxufor HFrEF:
-agree with diuresis, which requires intensive monitoring. He is s/p 1 dose lasix 80 mg daily- monitor response and reassess in AM
-CHF education
-he is on torsemide 80 mg PO BID as OP. ICM with EF 25%- Spironolactone now stopped due to hyperkalemia. Per previous notes, ACEI/ARNI/MRA stopped in past due to hyperkalemia. He is on metoprolol. 1st degree AVB noted- follow tele, which is stable
in SR.
Ascites:
-IR consulted for paracentesis
DAIVD:
-monitor with diuresis
CAD:
-stable without reports of CP
-continue ASA, statin
PAD with history of L BKA, also more recent history toe amputation:
-on ASA, statin
-per primary
Data Reviewed
-
EKG: Tracing Personally Visualized and interpreted (SR with 1st degree AVB and LBBB- similar to prevous)
Radiology: Report Reviewed by me (Cardiomegaly with a moderate left pleural effusion and associated atelectasis. There is an opacity projecting over the left midlung which may represent loculated fluid in the fissure or bandlike atelectasis.)
Ultrasound: Report Reviewed by me (Moderate abdominal ascites Small bilateral pleural effusions)
Medical Tests (Nuc Med, Echo etc): Report Reviewed by me (Echo 11/16/23: Severely reduced left ventricular systolic function. LV ejection fraction is 20-25% . Mild mitral regurgitation. Pleural effusion present. Moderate tricuspid regurgitation.
Pulmonary HTN. Estimated pulmonary artery pressure of 50-55 mmHg.)
Labs: Labs Reviewed by me
[2023-12-30] MEDS: ProAIR HFA INHALER 2 PUFF INH (19:28)
[2023-12-30 21:20] LABS: Glucose - Point of Care 107 mg/dl (70-99)
[2023-12-30] MEDS: MELATONIN 3 MG PO (22:21)
[2023-12-30] MEDS: HEPARIN 5000 UNITS SC (22:21)
[2023-12-30] MEDS: SENOKOT-S 2 TABLET PO (22:21)
[2023-12-30] MEDS: DESYREL 100 MG PO (22:21)
[2023-12-30] MEDS: DESYREL 25 MG PO (22:21)
[2023-12-30] MEDS: LANTUS 0.05 UNITS SC (22:22)
[2023-12-30] MEDS: TYLENOL 1000 MG PO (23:46)
[2023-12-31] VITALS (9 sets, daily range): BP systolic 69–146; BP diastolic 69–96; BMI 26.8
[2023-12-31] MEDS: ProAIR HFA INHALER 2 PUFF INH ×4 (07:17→19:15)
[2023-12-31 07:44] LABS: ALT (SGPT) 20 U/L (0-50); AST (SGOT) 39 U/L (17-59); Albumin 3.5 g/dl (3.5-5.0); Alkaline Phosphatase 375 U/L (38-126); Blood Urea Nitrogen 83 mg/dl (9-20); Calcium 8.5 mg/dl (8.4-10.2); Carbon Dioxide 29 mmol/L (22-30); Chloride 100 mmol/L (98-107); Direct Bilirubin 0.2 mg/dl (0.0-0.4); Estimated Creatinine Clearance 43 ml/min; Glucose 59 mg/dl (70-99); Potassium 5.2 mmol/L (3.5-5.1); Sodium 142 mmol/L (135-145); Total Protein 6.9 g/dl (6.3-8.2); eGFR 46.35
--- NOTE | 2023-12-31 08:42 | W.PN.HOSP.TC ---
Today's Communication/Plan
-
see bold
Assessment / Plan
Assessment / Plan
HPI: 68M [facility] [place] [facility] chr HfrEF, CAD, DM, and CKD pw fatigue , shortness of breath abdominal distention increased abdominal swelling x 5 weeks.
- Pt reports increased abdominal swelling attributed to CHF.
- Patient reports weight gain from 140 to 190 lbs and states his condition is getting worse every day.
- 'it's uncomfortable','enough is enough', and 'doesn't want to do this anymore'. Pt reports he was previously on furosemide and switched to torsemide roughly 1 week ago.
Assessment/plan:
#Acute heart failure with reduced ejection fraction
#Ascites from heart failure
Previous paracentesis in October 2023
Status post paracentesis draining 5.1 L 12/31/23
Appreciate cardiology input, continue Lasix 80 mg IV twice daily
Trend creatinine, daily weights
Long-term follow-up with Dr. Smith at [facility]
#Moderate left pleural effusion
Consider left thoracentesis
#Acute kidney injury superimposed on stage IIIb chronic kidney disease
Suspected cardiorenal syndrome
Trend creatinine
#Hyperkalemia
Seems like BASILIO/ARNI stopped in past due to hyperkalemia
Potassium 5.2 today, was 5.7 upon admission
Low potassium diet, continue to trend, should improve with diuresis
#Coronary artery disease
Continue aspirin, Plavix, statin, metoprolol
#Type 2 diabetes
A1C 6.2
Patient on Basaglar 8 units at bedtime, Humalog 8 units AC 3 times daily prior to arrival
He was hypoglycemic this morning at 53
Hold basal insulin, continue NovoLog 4 units AC 3 times daily
#Chronic right foot wound
#Chronic right foot pain
Continue oxy, wound care
Add laxatives
#Gastroesophageal reflux disease
Continue PPI
DVT prophylaxis�subcu Lovenox
Full code
Total time spent to see the patient on the floor, examine the patient, review data and lab results, discuss treatment plan with patient, nursing staff around 55 minutes.
Physical Exam
General: Appears chronically debilitated no acute distress
HEENT: Normocephalic, Atraumatic, EOMI, MMM
Respiratory: Bibasilar crackles
Cardiac: Normal S1/S2, Regular Rate and Rhythm
GI: Soft, Nontender, mildly distended, Normal Bowel Sounds
Extremities: No Clubbing, Cyanosis
Right lower extremity edema noted
Left BKA noted
Neuro: Nonfocal/Grossly Intact
Psych: Calm, Cooperative
Derm: Right foot wounds dressed
Anticipated Discharge: > 48 hours
Subjective/Interval History
-
Date of Service: December 31, 2023
Patient reports feeling better after his paracentesis. Denies chest pain, no shortness of breath. No fever, no vomiting.
Objective Data
-
Labs:
Laboratory Results
12/31/23
06:17
Sodium 142
Potassium 5.2 H
Chloride 100
Carbon Dioxide 29
BUN 83 H
Creatinine 1.6 H
Glucose 59 L
Calcium 8.5
Total Bilirubin 1.0
AST 39
ALT 20
Alkaline Phosphatase 375 H
Vital Signs:
Vital Signs
Temp Pulse Resp BP Pulse Ox
97.7 F 69 16 115/82 99
12/31/23 08:00 12/31/23 08:00 12/31/23 08:00 12/31/23 08:00 12/31/23 08:00
I&O
12/30/23 12/31/23 01/01/24
06:59 06:59 06:59
Intake Total 480 / 480
Output Total 150 / 150
Balance 330 / 330
[2023-12-31 09:13] LABS: Glycohemoglobin (HgbA1c) 6.2 % (4.0-5.6)
[2023-12-31 09:44] LABS: Glucose - Point of Care 53 mg/dl (70-99)
[2023-12-31] MEDS: TYLENOL 1000 MG PO (09:48)
[2023-12-31 09:49] LABS: Body Fluid WBC 153 /CUMM
[2023-12-31] MEDS: COLACE 100 MG PO (09:49)
[2023-12-31] MEDS: HEPARIN SC (09:49)
[2023-12-31] MEDS: PLAVIX 75 MG PO (09:50)
[2023-12-31] MEDS: NOVOLOG FLEXPEN SC (09:50)
[2023-12-31] MEDS: VITAMIN D3 (cholecalciferol) 50 MCG PO (09:50)
[2023-12-31] MEDS: TOPROL XL 50 MG PO (09:50)
[2023-12-31] MEDS: LIPITOR 20 MG PO (09:50)
[2023-12-31] MEDS: ASPIR LOW (ENTERIC COATED) 81 MG PO (09:50)
[2023-12-31] MEDS: NOVOLOG FLEXPEN-LOW RESISTANCE SC ×2 (09:51→16:49)
[2023-12-31] MEDS: LASIX 80 MG IV ×2 (09:53→16:44)
[2023-12-31 10:00] LABS: Glucose - Point of Care 71 mg/dl (70-99)
[2023-12-31 10:08] LABS: Body Fluid Second Tech CMB
--- NOTE | 2023-12-31 10:28 | WOUNDNOTE ---
RIGHT LATERAL FOOT
--- NOTE | 2023-12-31 10:28 | WOUNDNOTE ---
RIGHT SECOND TOE AMPUTATION SITE
--- NOTE | 2023-12-31 10:29 | WOUNDNOTE ---
[facility] RN note: Patient admitted with SOB
See H&P for complete history.
PMH: Resident of [facility], CHF, DM, CHF, CKD, Left BKA 2020 fully healed
Wound Location and type/assessment: Patient admitted with right second toe amputation for gangrene on 12/06 at [facility]. Site is clean and approximated. Heel intact. Patient externally rotates right foot. He stated he can turn self and pivots
with assistance to get in and out of bed at [place]. He states good appetite and is on a Conjure Accumax. He declined to turned for sacral check.
Plan: Local wound care provided to left second toe amputation site. Patient agreeable to try air cushion under heel and right lateral foot. No sting barrier and adhesive foam applied to the right heel. Patient said he has a follow up appointment
for his amputated toe on 01/06.
Will confirm orders with hospitalist and update nurse. Updated care plan and will follow as needed.
--- NOTE | 2023-12-31 10:48 | W.PN.CD ---
Today's Communication / Plan
-
Continue IV diuresis
Consider thoracentesis pending clinical course
Impression / Plan
-
Plfje-gp-bvxynrj HFrEF:
-agree with diuresis, which requires intensive monitoring. Continue IV Lasix 80 mg twice daily
-CHF education
-he is on torsemide 80 mg PO BID as OP. ICM with EF 25%
-Spironolactone now stopped due to hyperkalemia. Per previous notes, ACEI/ARNI/MRA stopped in past due to hyperkalemia.
-He is on metoprolol. 1st degree AVB noted
-follow tele, which is stable in SR.
-Daily weights. Strict I's/Os
-Long-term follow-up with Dr. Smith at [facility]
Ascites:
-Status post paracentesis 12/30
Pleural effusion:
-Consider thoracentesis pending clinical course
DAVID:
-monitor with diuresis
CAD:
-stable without reports of CP
-continue ASA, statin
PAD with history of L BKA, also more recent history toe amputation:
-on ASA, statin
-per primary
Subjective: Patient feels well this morning. Just underwent paracentesis which helped with his abdominal distention. Review of telemetry reveals rare PACs. Otherwise in sinus rhythm.
Physical Exam
Vital Signs/Labs
Vital Signs
Temp Pulse Resp BP Pulse Ox
98.4 F 73 20 137/90 98
12/31/23 09:39 12/31/23 09:53 12/31/23 09:39 12/31/23 09:53 12/31/23 09:39
12/30/23 12/31/23 01/01/24
06:59 06:59 06:59
Actual Weight 81.675 kg
12/30/23 14:48
10/11/24 06:17
PT 15.4 Sec (11.4-14.6) H 12/30/23 15:10
INR 1.22 12/30/23 15:10
12/30/23
14:48
Kxd-U-Iurqisyjjgu Pept > 51506
Physical Exam
Constitutional: No acute distress and Comfortable
Cardiovascular: Rhythm & rate is regular, Pedal edema present (2+ on RLE, LLE BKA), JVD present (To level of earlobe), S1S2 is normal and Murmur/rub/gallop absent
Respiratory: Respiratory effort normal and Lungs clear to auscul. (Decreased breath sounds at bilateral bases)
GI: Soft and Distention absent
Data Reviewed
-
Date of Service: December 31, 2023
Medical Decision Making: Reviewed Test Results, Independent Historian Assessment, Test Interpretation and Review of Case with other Provider
EKG: Tracing Personally Visualized and interpreted
Echo: Report Reviewed by me
X-Ray/CT/US/MRI/NUC/PET: Image Personally Visualized and interpreted
Labs: Labs Reviewed by me
Total Time Spent with Patient (in minutes): 35
[2023-12-31 12:39] LABS: Glucose - Point of Care 167 mg/dl (70-99)
[2023-12-31 12:45] LABS: Body Fluid Albumin 2.1 g/dl; Body Fluid Amylase 63 U/L; Body Fluid LDH 240 U/L; Body Fluid Protein 4.4 g/dl
[2023-12-31] MEDS: OXYCONTIN (CONTROLLED RELEASE) 10 MG PO (12:52)
[2023-12-31] MEDS: NOVOLOG FLEXPEN-LOW RESISTANCE 1 UNITS SC (13:08)
[2023-12-31] MEDS: NOVOLOG FLEXPEN 4 UNITS SC ×2 (13:08→16:50)
[2023-12-31 15:40] LABS: Glucose - Point of Care 167 mg/dl (70-99)
[2023-12-31 16:43] LABS: Glucose - Point of Care 144 mg/dl (70-99)
--- NOTE | 2023-12-31 17:02 | CM ---
Alert awake patient who long-term at [facility]. He is assisted in all activities of daily living.He uses a walker to transfer and self propels with wheelchair . He requested to return to [facility] at [place].
Pt uses oxygen 3 liters at baseline.
Pharmacy [facility]
PCP DR Sorensen
PLAN Return to [facility] referral placed
[2023-12-31] MEDS: PROTONIX 40 MG PO (17:54)
[2023-12-31] MEDS: MIRALAX 17 GRAMS PO (17:54)
[2023-12-31 21:29] LABS: Glucose - Point of Care 173 mg/dl (70-99)
[2023-12-31] MEDS: DESYREL 100 MG PO (21:36)
[2023-12-31] MEDS: MELATONIN 3 MG PO (21:36)
[2023-12-31] MEDS: SENOKOT-S 2 TABLET PO (21:36)
[2023-12-31] MEDS: DESYREL 25 MG PO (21:37)
[2023-12-31] MEDS: HEPARIN 5000 UNITS SC (21:37)
[2023-12-31] MEDS: LANTUS 0.05 UNITS SC (21:38)
[2024-01-01 03:02] VITALS: BP 110/69
[2024-01-01 03:51] LABS: Glucose - Point of Care 86 mg/dl (70-99)
[2024-01-01 06:00] VITALS: BMI 24.7
[2024-01-01 07:01] VITALS: BP 106/70
[2024-01-01 07:45] LABS: Glucose - Point of Care 109 mg/dl (70-99)
[2024-01-01] MEDS: ProAIR HFA INHALER 2 PUFF INH ×4 (07:46→20:05)
[2024-01-01] MEDS: NOVOLOG FLEXPEN-LOW RESISTANCE SC (08:39)
[2024-01-01] MEDS: LASIX 80 MG IV ×2 (08:40→16:06)
[2024-01-01] MEDS: ASPIR LOW (ENTERIC COATED) 81 MG PO (08:41)
[2024-01-01] MEDS: MIRALAX 17 GRAMS PO (08:41)
[2024-01-01] MEDS: COLACE 100 MG PO (08:41)
[2024-01-01] MEDS: HEPARIN 5000 UNITS SC ×2 (08:47→20:42)
[2024-01-01] MEDS: VITAMIN D3 (cholecalciferol) 50 MCG PO (08:48)
[2024-01-01] MEDS: TOPROL XL 50 MG PO (08:48)
[2024-01-01] MEDS: LIPITOR 20 MG PO (08:48)
[2024-01-01] MEDS: PROTONIX 40 MG PO (08:48)
[2024-01-01] MEDS: PLAVIX 75 MG PO (08:48)
[2024-01-01] MEDS: NOVOLOG FLEXPEN 4 UNITS SC ×3 (08:50→16:52)
[2024-01-01 08:55] LABS: Blood Urea Nitrogen 81 mg/dl (9-20); Calcium 8.2 mg/dl (8.4-10.2); Carbon Dioxide 32 mmol/L (22-30); Chloride 99 mmol/L (98-107); Estimated Creatinine Clearance 49 ml/min; Glucose 91 mg/dl (70-99); Sodium 138 mmol/L (135-145); eGFR 54.41
[2024-01-01] MEDS: TYLENOL 1000 MG PO (08:56)
[2024-01-01 09:05] LABS: Potassium 5.2 mmol/L (3.5-5.1)
--- NOTE | 2024-01-01 09:14 | W.PN.HOSP.TC ---
Today's Communication/Plan
-
Continue IV Lasix
Assessment / Plan
Assessment / Plan
HPI: 68M Harry [facility] Res [facility] chr HfrEF, CAD, DM, and CKD pw fatigue , shortness of breath abdominal distention increased abdominal swelling x 5 weeks.
- Pt reports increased abdominal swelling attributed to CHF.
- Patient reports weight gain from 140 to 190 lbs and states his condition is getting worse every day.
- 'it's uncomfortable','enough is enough', and 'doesn't want to do this anymore'. Pt reports he was previously on furosemide and switched to torsemide roughly 1 week ago.
Assessment/plan:
#Acute heart failure with reduced ejection fraction
#Ascites from heart failure
Previous paracentesis in October 2023
Status post paracentesis draining 5.1 L 12/31/23
Appreciate cardiology input, continue Lasix 80 mg IV twice daily
Trend creatinine, daily weights
Long-term follow-up with Dr. Smith at [facility]
#Moderate left pleural effusion
Consider left thoracentesis
#Acute kidney injury superimposed on stage IIIb chronic kidney disease
Suspected cardiorenal syndrome
Trend creatinine
#Hyperkalemia
Seems like BASILIO/ARNI stopped in past due to hyperkalemia
Potassium 5.2 today, was 5.7 upon admission
Low potassium diet, continue to trend, should improve with diuresis
#Coronary artery disease
Continue aspirin, Plavix, statin, metoprolol
#Type 2 diabetes
A1C 6.2
Patient on Basaglar 8 units at bedtime, Humalog 8 units AC 3 times daily prior to arrival
He was hypoglycemic this morning at 53
Hold basal insulin, continue NovoLog 4 units AC 3 times daily
#Chronic right foot wound
#Chronic right foot pain
Continue oxy, wound care
#Constipation
Increase laxatives
#Gastroesophageal reflux disease
Continue PPI
DVT prophylaxis�subcu Shaniquax
Full code
Total time spent to see the patient on the floor, examine the patient, review data and lab results, discuss treatment plan with patient, nursing staff around 45 minutes.
Physical Exam
General: Appears chronically debilitated no acute distress
HEENT: Normocephalic, Atraumatic, EOMI, MMM
Respiratory: Bibasilar crackles
Cardiac: Normal S1/S2, Regular Rate and Rhythm
GI: Soft, Nontender, mildly distended, Normal Bowel Sounds
Extremities: No Clubbing, Cyanosis
Right lower extremity edema noted
Left BKA noted
Neuro: Nonfocal/Grossly Intact
Psych: Calm, Cooperative
Derm: Right foot wounds dressed
Anticipated Discharge: 24 - 48 hours
Subjective/Interval History
-
Date of Service: January 01, 2024
Patient reports his breathing has improved dramatically. No fever, no vomiting. No chest pain.
Objective Data
-
Labs:
Laboratory Results
01/01/24
06:18
Sodium 138
Potassium 5.2 H
Chloride 99
Carbon Dioxide 32 H
BUN 81 H
Creatinine 1.4 H
Glucose 91
Calcium 8.2 L
Vital Signs:
Vital Signs
Temp Pulse Resp BP Pulse Ox
97.3 F 69 16 106/70 95
01/01/24 07:01 01/01/24 08:48 01/01/24 07:51 01/01/24 08:48 01/01/24 07:51
I&O
12/31/23 01/01/24 01/02/24
06:59 06:59 06:59
Intake Total 480 / 480 2340 / 2340
Output Total 150 / 150 575 / 575
Balance 330 / 330 1765 / 1765
--- NOTE | 2024-01-01 10:53 | W.PN.CD ---
Addendum entered and electronically signed by Faisal Yadav MD 01/01/24 12:55:
I saw and examined the patient.
The INTEGRATION CONSULTANT's note was reviewed and I agree with the note.
No complaints of increased shortness of breath. Patient feels better since paracentesis performed on 12/31/2023 this also may be why there is a significant jump in the weight. Creatinine has had some improvement and is down to 1.4. Patient's main
focus when I saw him today was that he needed to go to the bathroom. Management of constipation as directed by primary team
Continue diuresis and monitor renal function and weights.
Original Note:
Today's Communication / Plan
-
continue IV Lasix
constipation meds
Impression / Plan
-
HFrEF and ICM EF 25%: [id number]-[id number].
-agree with diuresis, which requires intensive monitoring
-Continue IV Lasix 80 mg twice daily
-CHF education, daily weights, I&Os
-His weight was 184 lbs on admit and now is 166 lbs!
-GDMT with Toprol, Torsemide (at home); treatment limited by hyperkalemia (no ACEI/ARNI/MRA)
-Long-term follow-up with Dr. Smith at [facility]
Ascites:
-Status post paracentesis 12/31/23 with 5100ml removed
Pleural effusion:
-Consider thoracentesis, continue IV Lasix
DAVID:
-monitor with diuresis
CAD:
-stable without CP
-continue ASA, statin
PAD with history of L BKA, also more recent history toe amputation:
-on ASA, statin
-per primary
Subjective:
c/o constipation this am.
denies cardiac symptoms and feels breathing has significantly improved.
Physical Exam
Vital Signs/Labs
Vital Signs
Temp Pulse Resp BP Pulse Ox
97.3 F 69 16 106/70 95
01/01/24 07:01 01/01/24 08:48 01/01/24 07:51 01/01/24 08:48 01/01/24 07:51
12/31/23 01/01/24 01/02/24
06:59 06:59 06:59
Actual Weight 180 lb 1 oz 166 lb 1 oz
12/30/23 14:48
01/01/24 06:18
PT 15.4 Sec (11.4-14.6) H 12/30/23 15:10
INR 1.22 12/30/23 15:10
12/30/23
14:48
Wic-K-Iahifjmstlf Pept > [id number]
Physical Exam
Constitutional: No acute distress and Comfortable
EENT: Anicteric
Cardiovascular: Rhythm & rate is regular
Respiratory: Respiratory effort normal (diminished b/l bases)
GI: Soft, Non tender and Normal bowel sounds
Neuro/Psych: AO x 3
Other: Skin (warm, dry)
Data Reviewed
-
Date of Service: January 01, 2024
Medical Decision Making: Reviewed Test Results
EKG: Tracing Personally Visualized and interpreted
Echo: Report Reviewed by me
Labs: Labs Reviewed by me
[2024-01-01 11:28] VITALS: BP 112/62
[2024-01-01] MEDS: OXYCONTIN (CONTROLLED RELEASE) 10 MG PO (11:30)
[2024-01-01 12:02] LABS: Glucose - Point of Care 163 mg/dl (70-99)
[2024-01-01] MEDS: DULCOLAX 10 MG RECTAL (12:28)
[2024-01-01] MEDS: NOVOLOG FLEXPEN-LOW RESISTANCE 1 UNITS SC (12:35)
--- NOTE | 2024-01-01 14:19 | PTCARENOTE ---
Patient with complaints of constipation. Patient given Miralax, colace and dulcolax suppository. Patient incontinent of large soft brown BM.
--- NOTE | 2024-01-01 14:27 | PTCARENOTE ---
Patient with MRSA nares. To be transferred to private room as per protocol. aware.
[2024-01-01] MEDS: FLUSH (NSS) 1 FLUSH IV (16:07)
--- NOTE | 2024-01-01 16:25 | TRANSFER ---
Received patient from via bed. Pt AAOX3. Forgetful at times. Pox: 94-95% RA. NSR/1AVB on monitoring tech. Call danielle within reach. Plan of care ongoing.
[2024-01-01 16:41] LABS: Glucose - Point of Care 294 mg/dl (70-99)
[2024-01-01] MEDS: NOVOLOG FLEXPEN-LOW RESISTANCE 3 UNITS SC (16:52)
[2024-01-01 19:35] VITALS: BP 112/68
[2024-01-01] MEDS: DESYREL 100 MG PO (20:40)
[2024-01-01] MEDS: DESYREL 25 MG PO (20:41)
[2024-01-01] MEDS: SENOKOT-S PO (20:45)
[2024-01-01] MEDS: MIRALAX PO (20:45)
[2024-01-01] MEDS: MELATONIN 3 MG PO (20:47)
[2024-01-01 21:10] LABS: Glucose - Point of Care 350 mg/dl (70-99)
[2024-01-01] MEDS: NOVOLOG FLEXPEN 5 UNITS SC (21:49)
[2024-01-01] MEDS: LANTUS 0.05 UNITS SC (21:50)
[2024-01-01 23:50] VITALS: BP 114/65
[2024-01-01 23:57] LABS: Glucose - Point of Care 286 mg/dl (70-99)
[2024-01-02 03:27] VITALS: BP 119/70
[2024-01-02 06:00] VITALS: BMI 24.6
[2024-01-02 07:10] VITALS: BP 113/48
[2024-01-02] MEDS: ProAIR HFA INHALER 2 PUFF INH ×4 (07:46→20:49)
[2024-01-02 07:47] LABS: Glucose - Point of Care 147 mg/dl (70-99)
[2024-01-02] MEDS: NOVOLOG FLEXPEN 4 UNITS SC ×2 (07:48→12:52)
[2024-01-02] MEDS: NOVOLOG FLEXPEN-LOW RESISTANCE SC (07:48)
[2024-01-02] MEDS: PROTONIX 40 MG PO (07:49)
[2024-01-02] MEDS: ASPIR LOW (ENTERIC COATED) 81 MG PO (07:49)
[2024-01-02] MEDS: LASIX 80 MG IV ×2 (07:50→15:36)
[2024-01-02] MEDS: COLACE PO (07:50)
[2024-01-02] MEDS: HEPARIN 5000 UNITS SC (07:50)
[2024-01-02] MEDS: PLAVIX 75 MG PO (07:51)
[2024-01-02] MEDS: TOPROL XL 50 MG PO (07:51)
[2024-01-02] MEDS: LIPITOR 20 MG PO (07:51)
[2024-01-02] MEDS: VITAMIN D3 (cholecalciferol) 50 MCG PO (07:51)
[2024-01-02] MEDS: MIRALAX PO ×2 (07:52→20:26)
[2024-01-02] MEDS: SENOKOT-S PO ×2 (07:52→20:27)
--- NOTE | 2024-01-02 08:43 | W.PN.HOSP.TC ---
Today's Communication/Plan
-
see bold
Assessment / Plan
Assessment / Plan
HPI: 68M [facility] [place] [facility] chr HfrEF, CAD, DM, and CKD pw fatigue , shortness of breath abdominal distention increased abdominal swelling x 5 weeks.
- Pt reports increased abdominal swelling attributed to CHF.
- Patient reports weight gain from 140 to 190 lbs and states his condition is getting worse every day.
- 'it's uncomfortable','enough is enough', and 'doesn't want to do this anymore'. Pt reports he was previously on furosemide and switched to torsemide roughly 1 week ago.
Assessment/plan:
#Acute heart failure with reduced ejection fraction
#Ascites from heart failure
Previous paracentesis in October 2023
Status post paracentesis draining 5.1 L 12/31/23
Appreciate cardiology input, continue Lasix 80 mg IV twice daily
Trend creatinine, daily weights
Long-term follow-up with Dr. Smith at [facility]
#Moderate left pleural effusion
Consult IR for left thoracentesis
#Acute kidney injury superimposed on stage IIIb chronic kidney disease
Suspected cardiorenal syndrome
Creatinine improved, continue trend creatinine
#Hyperkalemia
Seems like BASILIO/ARNI stopped in past due to hyperkalemia
Potassium 5.2 today, was 5.7 upon admission
Low potassium diet, continue to trend, should improve with diuresis
#Coronary artery disease
Continue aspirin, Plavix, statin, metoprolol
#Type 2 diabetes
A1C 6.2
Patient on Basaglar 8 units at bedtime, Humalog 8 units AC 3 times daily prior to arrival
He was hypoglycemic this morning at 53
Hold basal insulin, increase NovoLog to 8 units AC 3 times daily
#Chronic right foot wound
#Chronic right foot pain
Continue oxy, wound care
#Constipation
Increase laxatives
#Gastroesophageal reflux disease
Continue PPI
DVT prophylaxis�subcu Lovenox
Full code
Updated son on phone 01/01
Total time spent to see the patient on the floor, examine the patient, review data and lab results, discuss treatment plan with patient, nursing staff around 51 minutes.
Physical Exam
General: Appears chronically debilitated no acute distress
HEENT: Normocephalic, Atraumatic, EOMI, MMM
Respiratory: Bibasilar crackles
Cardiac: Normal S1/S2, Regular Rate and Rhythm
GI: Soft, Nontender, mildly distended, Normal Bowel Sounds
Extremities: No Clubbing, Cyanosis
Right lower extremity edema noted
Left BKA noted
Neuro: Nonfocal/Grossly Intact
Psych: Calm, Cooperative
Derm: Right foot wounds dressed
Anticipated Discharge: 24 - 48 hours
Subjective/Interval History
-
Date of Service: January 02, 2024
Patient reports his breathing is improved. He is having hard stools. No fever, no vomiting. No chest pain.
Objective Data
-
Labs:
Laboratory Results
01/02/24
07:33
Sodium Pending
Potassium Pending
Chloride Pending
Carbon Dioxide Pending
BUN Pending
Creatinine Pending
Glucose Pending
Calcium Pending
Vital Signs:
Vital Signs
Temp Pulse Resp BP Pulse Ox
97.9 F 71 18 113/48 98
01/02/24 07:10 01/02/24 07:47 01/02/24 07:47 01/02/24 07:10 01/02/24 07:47
I&O
01/01/24 01/02/24 01/03/24
06:59 06:59 06:59
Intake Total 2340 / 2340 1560 / 1560
Output Total 575 / 575
Balance 1765 / 1765 1560 / 1560
[2024-01-02 09:18] LABS: Blood Urea Nitrogen 75 mg/dl (9-20); Calcium 8.4 mg/dl (8.4-10.2); Carbon Dioxide 33 mmol/L (22-30); Chloride 98 mmol/L (98-107); Estimated Creatinine Clearance 53 ml/min; Glucose 136 mg/dl (70-99); Potassium 5.4 mmol/L (3.5-5.1); Sodium 138 mmol/L (135-145); eGFR 59.47
[2024-01-02] MEDS: TYLENOL 1000 MG PO ×2 (11:17→20:29)
[2024-01-02] MEDS: OXYCONTIN (CONTROLLED RELEASE) PO (11:19)
[2024-01-02 11:55] LABS: Glucose - Point of Care 281 mg/dl (70-99)
[2024-01-02] MEDS: NOVOLOG FLEXPEN-LOW RESISTANCE 3 UNITS SC (12:52)
[2024-01-02] MEDS: DUPHALAC/CHRONULAC 20 GRAMS PO (14:14)
[2024-01-02 15:10] VITALS: BP 115/65
[2024-01-02 16:18] LABS: Glucose - Point of Care 241 mg/dl (70-99)
--- NOTE | 2024-01-02 16:21 | W.PN.CD ---
Today's Communication / Plan
-
Management remains challenging.
Continue with IV diuresis and monitor renal function and weights
Impression / Plan
-
HFrEF and ICM EF 25%: Lytpe-op-lwemoxx.
-agree with diuresis, which requires intensive monitoring
-Continue IV Lasix 80 mg twice daily
-CHF education, daily weights, I&Os
-Weight is trending down but still with significant edema.
-GDMT with Toprol, Torsemide (at home); treatment limited by hyperkalemia (no ACEI/ARNI/MRA)
-Long-term follow-up with Dr. Smith at [facility]
Ascites:
-Status post paracentesis 12/31/23 with 5100ml removed
Pleural effusion:
-Consider thoracentesis, continue IV Lasix
DAVID:
-monitor with diuresis
CAD:
-stable without CP
-continue ASA, statin
PAD with history of L BKA, also more recent history toe amputation:
-on ASA, statin
-per primary
Subjective:
Breathing comfortably. Constipation improved. No chest pain. Still with edema.
Physical Exam
Vital Signs/Labs
Vital Signs
Temp Pulse Resp BP Pulse Ox
97.9 F 68 16 113/48 97
01/02/24 07:10 01/02/24 15:48 01/02/24 15:48 01/02/24 07:10 01/02/24 15:48
01/01/24 01/02/24 01/03/24
06:59 06:59 06:59
Actual Weight 75.325 kg 74.956 kg
12/30/23 14:48
01/02/24 07:33
PT 15.4 Sec (11.4-14.6) H 12/30/23 15:10
INR 1.22 12/30/23 15:10
12/30/23
14:48
Drz-S-Bbjdwvzgrvo Pept > [id number]
Physical Exam
Constitutional: No acute distress
Cardiovascular: Rhythm & rate is regular
Respiratory: Wheeze Absent and Rhonchi Absent
GI: Soft
Other: Other (Abdominal distention but nontender edema of extremity up to thighs)
Data Reviewed
-
Date of Service: January 02, 2024
Medical Decision Making: Reviewed Test Results
Echo: Report Reviewed by me
Medical Tests (PFT, Pathology etc): Report Reviewed by me
Labs: Labs Reviewed by me
[2024-01-02] MEDS: NOVOLOG FLEXPEN 8 UNITS SC (16:33)
[2024-01-02] MEDS: NOVOLOG FLEXPEN-LOW RESISTANCE 2 UNITS SC (16:33)
[2024-01-02] MEDS: HEPARIN SC (20:28)
[2024-01-02] MEDS: DESYREL 25 MG PO (21:22)
[2024-01-02] MEDS: DESYREL 100 MG PO (21:22)
[2024-01-02] MEDS: MELATONIN 3 MG PO (21:22)
[2024-01-02] MEDS: LANTUS 0.05 UNITS SC (21:24)
[2024-01-02 21:25] LABS: Glucose - Point of Care 132 mg/dl (70-99)
[2024-01-02 23:11] VITALS: BP 113/67
[2024-01-03] MEDS: DUPHALAC/CHRONULAC PO ×4 (01:08→19:59)
[2024-01-03] MEDS: OXYCONTIN (CONTROLLED RELEASE) 10 MG PO ×2 (01:19→11:20)
--- NOTE | 2024-01-03 01:23 | PTCARENOTE ---
Patient c/o moderate right foot pain . patient refused to take oxycodone 5mg PO saying that would make him addicted. asking for OxyContin (which scheduled at 1100am today). MATT Esqueda made aware. See MAR for new order
[2024-01-03 06:00] VITALS: BMI 24.6
--- NOTE | 2024-01-03 06:33 | W.PN.HOSP.TC ---
Today's Communication/Plan
-
cont diuresis as per cardio
discontinue potassium restriction diet for now, restart if potassium increases again
daily weight I/O
glycemic control
Assessment / Plan
Assessment / Plan
HPI: 68M Harry [facility] Res [facility] chr HfrEF, CAD, DM, and CKD pw fatigue , shortness of breath abdominal distention increased abdominal swelling x 5 weeks.
- Pt reports increased abdominal swelling attributed to CHF.
- Patient reports weight gain from 140 to 190 lbs and states his condition is getting worse every day.
- 'it's uncomfortable','enough is enough', and 'doesn't want to do this anymore'. Pt reports he was previously on furosemide and switched to torsemide roughly 1 week ago.
Assessment/plan:
#Acute heart failure with reduced ejection fraction
#Ascites from heart failure
Previous paracentesis in October 2023
Status post paracentesis draining 5.1 L 12/31/23
Appreciate cardiology input, continue Lasix 80 mg IV twice daily
Trend creatinine, daily weights
Long-term follow-up with Dr. Smith at [facility]
#Moderate left pleural effusion
Consult IR appreciated left thoracentesis performed 01/02 950 cc fluid drained
#Acute kidney injury superimposed on stage IIIb chronic kidney disease
Suspected cardiorenal syndrome
Creatinine improving, continue trend creatinine
#Hyperkalemia
Seems like BASILIO/ARNI stopped in past due to hyperkalemia
5.7 upon admission since improved with potassium restriction and diuresis
potassium restriction diet discontinued, restart if potassium increases again
#Coronary artery disease
Continue aspirin, Plavix, statin, metoprolol
#Type 2 diabetes
A1C 6.2
Patient on Basaglar 8 units at bedtime, Humalog 8 units AC 3 times daily prior to arrival
Basal insulin reduced to 5U d/t episode hypoglycemia, cont NovoLog to 8 units AC 3 times daily
#Chronic right foot wound
#Chronic right foot pain
Continue oxy, wound care
#Constipation
cont bowel regimen
#Gastroesophageal reflux disease
Continue PPI
DVT prophylaxis�subcu Lovenox
Full code
Updated son on phone 01/02
Total time spent to see the patient on the floor, examine the patient, review data and lab results, discuss treatment plan with patient, nursing staff around 50 minutes.
Physical Exam
General: Appears chronically debilitated no acute distress
HEENT: Normocephalic, Atraumatic, EOMI, MMM
Respiratory: Bibasilar crackles
Cardiac: Normal S1/S2, Regular Rate and Rhythm
GI: Soft, Nontender, mildly distended, Normal Bowel Sounds
Extremities: No Clubbing, Cyanosis
Right lower extremity edema noted
Left BKA noted
Neuro: Nonfocal/Grossly Intact
Psych: Calm, Cooperative
Derm: Right foot wounds dressed
Anticipated Discharge: 24 - 48 hours
Subjective/Interval History
-
Date of Service: January 03, 2024
No acute distress. Appears comfortable.
Objective Data
-
Labs:
Laboratory Results
01/03/24
06:00
Sodium Pending
Potassium Pending
Chloride Pending
Carbon Dioxide Pending
BUN Pending
Creatinine Pending
Glucose Pending
Calcium Pending
Total Bilirubin Pending
AST Pending
ALT Pending
Alkaline Phosphatase Pending
Vital Signs:
Vital Signs
Temp Pulse Resp BP Pulse Ox
97.8 F 69 16 113/67 97
01/02/24 23:11 01/02/24 23:11 01/02/24 23:11 01/02/24 23:11 01/02/24 23:25
I&O
01/01/24 01/02/24 01/03/24
06:59 06:59 06:59
Intake Total 2340 / 2340 1560 / 1560 1020 / 1020
Output Total 575 / 575
Balance 1765 / 1765 1560 / 1560 1020 / 1020
[2024-01-03 07:13] LABS: Glucose - Point of Care 107 mg/dl (70-99)
[2024-01-03] MEDS: ProAIR HFA INHALER 2 PUFF INH ×4 (07:38→19:32)
[2024-01-03 07:53] VITALS: BP 105/66
[2024-01-03 08:22] LABS: ALT (SGPT) 21 U/L (0-50); AST (SGOT) 45 U/L (17-59); Alkaline Phosphatase 384 U/L (38-126); Blood Urea Nitrogen 71 mg/dl (9-20); Calcium 8.2 mg/dl (8.4-10.2); Carbon Dioxide 34 mmol/L (22-30); Chloride 97 mmol/L (98-107); Direct Bilirubin 0.4 mg/dl (0.0-0.4); Estimated Creatinine Clearance 53 ml/min; Glucose 94 mg/dl (70-99); LDH 324 U/L (120-246); Potassium 5.1 mmol/L (3.5-5.1); Sodium 137 mmol/L (135-145); Total Bilirubin 1.1 mg/dl (0.2-1.3); eGFR 59.47
[2024-01-03 09:00] VITALS: BP 108/71; BP_SYST 69
[2024-01-03 09:30] VITALS: BP 99/63
[2024-01-03 10:23] LABS: Body Fluid pH 7.39
[2024-01-03 10:53] LABS: Body Fluid LDH 132 U/L; Body Fluid Protein 2.5 g/dl
[2024-01-03] MEDS: NOVOLOG FLEXPEN 8 UNITS SC ×2 (11:03→17:34)
[2024-01-03] MEDS: VITAMIN D3 (cholecalciferol) 50 MCG PO (11:04)
[2024-01-03] MEDS: NOVOLOG FLEXPEN-LOW RESISTANCE SC ×2 (11:04→17:35)
[2024-01-03] MEDS: ASPIR LOW (ENTERIC COATED) 81 MG PO (11:04)
[2024-01-03] MEDS: MIRALAX 17 GRAMS PO (11:05)
[2024-01-03] MEDS: TOPROL XL 50 MG PO (11:05)
[2024-01-03] MEDS: PROTONIX 40 MG PO (11:05)
[2024-01-03] MEDS: COLACE 100 MG PO (11:05)
[2024-01-03] MEDS: PLAVIX 75 MG PO (11:05)
[2024-01-03] MEDS: LIPITOR 20 MG PO (11:14)
[2024-01-03] MEDS: LASIX 80 MG IV ×2 (11:14→15:48)
--- NOTE | 2024-01-03 11:14 | CM ---
Patient seen bedside, reports no needs to CM at this time. Patient LTC resident at [facility], will update facility when patient stable for discharge. CM will continue to follow for all discharge planning needs.
Plan; return to [facility] when stable.
Harry Hinton:
Report: [phone]
Fax: [phone]
[2024-01-03] MEDS: HEPARIN 5000 UNITS SC (11:15)
[2024-01-03] MEDS: SENOKOT-S 2 TABLET PO (11:16)
[2024-01-03 13:03] LABS: Glucose - Point of Care 169 mg/dl (70-99)
[2024-01-03 13:05] LABS: Body Fluid WBC 100 /CUMM
[2024-01-03 13:06] LABS: Body Fluid Second Tech CS
[2024-01-03] MEDS: NOVOLOG FLEXPEN SC (13:06)
[2024-01-03] MEDS: NOVOLOG FLEXPEN-LOW RESISTANCE 1 UNITS SC (13:07)
[2024-01-03 14:15] LABS: Hematocrit 37.4 % (39.0-52.0); Mean Corp Hgb Conc. 29.4 g/dL (33.0-37.0); Mean Corpuscular Hgb 25.7 pg (27.0-31.0); Mean Corpuscular Volume 87.4 fL (80.0-94.0); Mean Platelet Volume 9.7 fL (7.4-10.4); Platelet Count 104 10^3/uL (130-400); Red Blood Cell Count 4.28 10^6/uL (4.70-6.10); Red Cell Dist. Width 18.1 % (11.5-14.5); White Blood Cell Count 8.4 10^3/uL (4.8-10.8)
--- NOTE | 2024-01-03 14:41 | W.PN.CD ---
Today's Communication / Plan
-
Continue diuresis
Impression / Plan
-
HFrEF and ICM EF 25%: Gzhlq-sj-ymmprfv.
-agree with diuresis, which requires intensive monitoring
-Continue IV Lasix 80 mg twice daily
-CHF education, daily weights, I&Os
-Weight is trending down but still with significant edema.
-GDMT with Toprol, Torsemide (at home); treatment limited by hyperkalemia (no ACEI/ARNI/MRA)
-Long-term follow-up with Dr. Smith at [facility]
Ascites:
-Status post paracentesis 12/31/23 with 5100ml removed
Pleural effusion:
-Consider thoracentesis, continue IV Lasix
DAVID:
-monitor with diuresis
CAD:
-stable without CP
-continue ASA, statin
PAD with history of L BKA, also more recent history toe amputation:
-on ASA, statin
-per primary
Subjective:
Breathing is more comfortable but not back to his baseline. He is very unhappy with his diet and wants to be liberalized to include more potassium.
Physical Exam
Vital Signs/Labs
Vital Signs
Temp Pulse Resp BP Pulse Ox
97.8 F 72 17 138/72 97
01/03/24 09:00 01/03/24 11:05 01/03/24 11:03 01/03/24 11:05 01/03/24 11:03
01/02/24 01/03/24 01/04/24
06:59 06:59 06:59
Actual Weight 74.956 kg 74.871 kg
01/03/24 13:56
01/03/24 07:04
PT 15.4 Sec (11.4-14.6) H 12/30/23 15:10
INR 1.22 12/30/23 15:10
12/30/23
14:48
Set-P-Jemxsouhnmd Pept > [id number]
Physical Exam
Constitutional: No acute distress and Comfortable
Cardiovascular: Rhythm & rate is regular, Pedal edema present, S1S2 is normal and Murmur/rub/gallop absent
Respiratory: Respiratory effort normal
GI: Soft
Data Reviewed
-
Date of Service: January 03, 2024
EKG: Tracing Personally Visualized and interpreted
Echo: Report Reviewed by me
Labs: Labs Reviewed by me
Total Time Spent with Patient (in minutes): 35
[2024-01-03 15:12] VITALS: BP 103/70
[2024-01-03] MEDS: TYLENOL 1000 MG PO (15:44)
[2024-01-03 16:23] LABS: Glucose - Point of Care 147 mg/dl (70-99)
[2024-01-03] MEDS: SENOKOT-S PO (19:59)
[2024-01-03] MEDS: HEPARIN SC (19:59)
[2024-01-03] MEDS: MIRALAX PO (19:59)
[2024-01-03 20:00] LABS: Glucose - Point of Care 216 mg/dl (70-99)
[2024-01-03] MEDS: DESYREL 25 MG PO (20:00)
[2024-01-03] MEDS: DESYREL 100 MG PO (20:01)
[2024-01-03] MEDS: LANTUS 0.05 UNITS SC (20:01)
[2024-01-03] MEDS: MELATONIN 3 MG PO (20:01)
[2024-01-03 23:38] VITALS: BP 111/55
[2024-01-04] MEDS: TYLENOL 1000 MG PO ×2 (01:20→20:27)
[2024-01-04 06:00] VITALS: BMI 24.3
[2024-01-04 06:57] LABS: Hematocrit 32.8 % (39.0-52.0); Mean Corp Hgb Conc. 30.5 g/dL (33.0-37.0); Mean Corpuscular Hgb 26.7 pg (27.0-31.0); Mean Corpuscular Volume 87.7 fL (80.0-94.0); Mean Platelet Volume 10.8 fL (7.4-10.4); Platelet Count 101 10^3/uL (130-400); Red Blood Cell Count 3.74 10^6/uL (4.70-6.10); White Blood Cell Count 6.6 10^3/uL (4.8-10.8)
[2024-01-04 07:06] LABS: Blood Urea Nitrogen 70 mg/dl (9-20); Carbon Dioxide 33 mmol/L (22-30); Chloride 99 mmol/L (98-107); Estimated Creatinine Clearance 58 ml/min; Glucose 96 mg/dl (70-99); Magnesium 2.3 mg/dl (1.6-2.3); Phosphorus 3.1 mg/dl (2.5-4.5); Sodium 139 mmol/L (135-145); eGFR > 60.00
[2024-01-04 07:30] VITALS: BP 111/65
--- NOTE | 2024-01-04 07:39 | W.PN.HOSP.TC ---
Today's Communication/Plan
-
glycemic control
IV Lasix transitioned back to home Torsemide as per Cardiology
wean O2 as tolerated
Assessment / Plan
Assessment / Plan
HPI: 68M Harry [facility] Res PMH chr HfrEF, CAD, DM, and CKD pw fatigue , shortness of breath abdominal distention increased abdominal swelling x 5 weeks.
- Pt reports increased abdominal swelling attributed to CHF.
- Patient reports weight gain from 140 to 190 lbs and states his condition is getting worse every day.
- 'it's uncomfortable','enough is enough', and 'doesn't want to do this anymore'. Pt reports he was previously on furosemide and switched to torsemide roughly 1 week ago.
Assessment/plan:
#Acute heart failure with reduced ejection fraction
#Ascites from heart failure
Previous paracentesis in October 2023
Status post paracentesis draining 5.1 L 12/31/23
Appreciate cardiology input, Lasix 80 mg IV twice daily converted back to home Torsemide
Trend creatinine, daily weights
Long-term follow-up with Dr. Smith at [facility]
#Moderate left pleural effusion
Consult IR appreciated left thoracentesis performed 01/02 950 cc fluid drained
#Acute kidney injury superimposed on stage IIIb chronic kidney disease
Suspected cardiorenal syndrome
Creatinine improving, continue trend creatinine
#Hyperkalemia
Seems like BASILIO/ARNI stopped in past due to hyperkalemia
5.7 upon admission since improved with potassium restriction and diuresis
potassium restriction diet discontinued, restart if potassium increases again
#Coronary artery disease
Continue aspirin, Plavix, statin, metoprolol
#Type 2 diabetes
A1C 6.2
Patient on Basaglar 8 units at bedtime, Humalog 8 units AC 3 times daily prior to arrival
Basal insulin reduced to 5U d/t episode hypoglycemia, cont NovoLog to 8 units AC 3 times daily
#Chronic right foot wound
#Chronic right foot pain
Continue oxy, wound care
#Constipation
cont bowel regimen
#Gastroesophageal reflux disease
Continue PPI
DVT prophylaxis�subcu Lovenox
Full code
Updated son on phone 01/02
Total time spent to see the patient on the floor, examine the patient, review data and lab results, discuss treatment plan with patient, nursing staff around 40 minutes.
Physical Exam
General: Appears chronically debilitated no acute distress
HEENT: Normocephalic, Atraumatic, EOMI, MMM
Respiratory: Bibasilar crackles
Cardiac: Normal S1/S2, Regular Rate and Rhythm
GI: Soft, Nontender, mildly distended, Normal Bowel Sounds
Extremities: No Clubbing, Cyanosis
Right lower extremity edema noted
Left BKA noted
Neuro: Nonfocal/Grossly Intact
Psych: Calm, Cooperative
Derm: Right foot wounds dressed
Anticipated Discharge: 24 - 48 hours
Subjective/Interval History
-
Date of Service: January 04, 2024
No acute distress. Overall reports feeling well.
Objective Data
-
Labs:
Laboratory Results
01/04/24
05:57
WBC 6.6
Hgb 10.0 L
Hct 32.8 L
Plt Count 101 L
Sodium 139
Potassium 5.0
Chloride 99
Carbon Dioxide 33 H
BUN 70 H
Creatinine 1.2
Glucose 96
Calcium 8.0 L
Vital Signs:
Vital Signs
Temp Pulse Resp BP Pulse Ox
97.6 F 71 18 111/55 95
01/03/24 23:38 01/03/24 23:38 01/03/24 23:38 01/03/24 23:38 01/03/24 23:38
I&O
01/03/24 01/04/24 01/05/24
06:59 06:59 06:59
Intake Total 1020 / 1020 600 / 600
Output Total 200 / 200
Balance 1020 / 1020 400 / 400
[2024-01-04 07:46] LABS: Glucose - Point of Care 84 mg/dl (70-99)
[2024-01-04] MEDS: NOVOLOG FLEXPEN-LOW RESISTANCE SC (08:03)
[2024-01-04] MEDS: ProAIR HFA INHALER 2 PUFF INH ×4 (08:38→19:28)
--- NOTE | 2024-01-04 08:39 | W.PN.CD ---
Today's Communication / Plan
-
- Stable from cardiac stand point
- Discontinue Aldactone at the time of discharge.
- Follow up with primary clinical data assistant.
Impression / Plan
-
HFrEF and ICM EF 25%: [id number]-it-[id number].
-agree with diuresis, which requires intensive monitoring
-Continue IV Lasix 80 mg twice daily
-CHF education, daily weights, I&Os
-Weight is trending down but still with significant edema.
-GDMT with Toprol, Torsemide (at home); treatment limited by hypotension and hyperkalemia (no ACEI/ARNI/MRA)
-Will hold Aldactone for now.
-Long-term follow-up with Dr. Smith at [facility]
-LBBB and LVEF 20% - again offered ICD and possibility of LICENSING COORDINATOR but patient is not interested. Adamantly refused to even talk about it. He has been offered in the past and feels it is a bad idea for him. I respect his wishes.
Ascites:
-Status post paracentesis 12/31/23 with 5100ml removed
Pleural effusion:
-Consider thoracentesis, continue IV Lasix
DAVID:
-monitor with diuresis
CAD:
-stable without CP
-continue ASA, statin
PAD with history of L BKA, also more recent history toe amputation:
-on ASA, statin
-per primary
Subjective:
Breathing is more comfortable.
Physical Exam
Vital Signs/Labs
Vital Signs
Temp Pulse Resp BP Pulse Ox
98.4 F 68 17 111/65 97
01/04/24 07:30 01/04/24 07:30 01/04/24 07:30 01/04/24 07:30 01/04/24 07:30
01/03/24 01/04/24 01/05/24
06:59 06:59 06:59
Actual Weight 74.871 kg 73.964 kg
01/04/24 05:57
01/04/24 05:57
PT 15.4 Sec (11.4-14.6) H 12/30/23 15:10
INR 1.22 12/30/23 15:10
Magnesium 2.3 mg/dl (1.6-2.3) 01/04/24 05:57
12/30/23
14:48
Abe-J-Ylgccjunsxa Pept > [id number]
Physical Exam
Constitutional: No acute distress and Comfortable
EENT: Anicteric and Moist mucous membranes
Cardiovascular: Rhythm & rate is regular, Pedal edema is absent and JVD pressure is normal
Respiratory: Respiratory effort normal, Lungs clear to auscul. and Crackles Absent
GI: Soft, Non tender and Normal bowel sounds
Neuro/Psych: Alert, Oriented, AO x 3 and Motor deficits absent
Data Reviewed
-
Date of Service: January 04, 2024
Medical Decision Making: Reviewed Test Results, Independent Historian Assessment and Test Interpretation
EKG: Tracing Personally Visualized and interpreted
Echo: Report Reviewed by me
Labs: Labs Reviewed by me
Old Records: Reviewed
[2024-01-04] MEDS: LASIX 80 MG IV (09:09)
[2024-01-04] MEDS: DUPHALAC/CHRONULAC 20 GRAMS PO (09:11)
[2024-01-04] MEDS: MIRALAX 17 GRAMS PO (09:12)
[2024-01-04] MEDS: LIPITOR 20 MG PO (09:12)
[2024-01-04] MEDS: PROTONIX 40 MG PO (09:12)
[2024-01-04] MEDS: HEPARIN 5000 UNITS SC ×2 (09:12→20:17)
[2024-01-04] MEDS: PLAVIX 75 MG PO (09:12)
[2024-01-04] MEDS: VITAMIN D3 (cholecalciferol) 50 MCG PO (09:12)
[2024-01-04] MEDS: TOPROL XL 50 MG PO (09:12)
[2024-01-04] MEDS: COLACE 100 MG PO (09:13)
[2024-01-04] MEDS: SENOKOT-S 2 TABLET PO ×2 (09:13→20:15)
[2024-01-04] MEDS: ASPIR LOW (ENTERIC COATED) 81 MG PO (09:13)
[2024-01-04] MEDS: NOVOLOG FLEXPEN-LOW RESISTANCE 8 UNITS SC (10:32)
[2024-01-04] MEDS: NOVOLOG FLEXPEN 8 UNITS SC ×3 (10:44→17:05)
[2024-01-04 12:28] LABS: Glucose - Point of Care 132 mg/dl (70-99)
[2024-01-04] MEDS: OXYCONTIN (CONTROLLED RELEASE) 10 MG PO (12:43)
[2024-01-04 15:53] VITALS: BP 110/59
[2024-01-04 16:55] LABS: Glucose - Point of Care 176 mg/dl (70-99)
[2024-01-04] MEDS: NOVOLOG FLEXPEN-LOW RESISTANCE 1 UNITS SC (17:04)
[2024-01-04] MEDS: DEMADEX 80 MG PO (17:07)
[2024-01-04] MEDS: DUPHALAC/CHRONULAC PO ×2 (20:15→20:19)
[2024-01-04] MEDS: MIRALAX PO (20:29)
[2024-01-04 21:09] LABS: Glucose - Point of Care 61 mg/dl (70-99)
[2024-01-04] MEDS: DESYREL 100 MG PO (21:17)
[2024-01-04] MEDS: MELATONIN 3 MG PO (21:17)
[2024-01-04] MEDS: DESYREL 25 MG PO (21:17)
[2024-01-04] MEDS: LANTUS SC (21:34)
[2024-01-04 22:04] LABS: Glucose - Point of Care 71 mg/dl (70-99)
[2024-01-04 23:45] VITALS: BP 95/55
[2024-01-05 00:01] LABS: Glucose - Point of Care 103 mg/dl (70-99)
[2024-01-05 04:11] VITALS: BMI 25.3
--- NOTE | 2024-01-05 05:54 | DOWNTIME ---
There was a 24 Quan Client Jar Capper Downtime on 01/05/2024 from 0100 to 01/05/2024 at 0355. Downtime documentation of patient's care, including medication administrations, has been reconciled in the electronic record per guidelines. Refer to the
patient's paper chart under the miscellaneous tab to see printed paper medication records and downtime forms.
[2024-01-05] MEDS: ProAIR HFA INHALER 2 PUFF INH ×4 (07:23→19:47)
--- NOTE | 2024-01-05 07:26 | W.PN.HOSP.TC ---
Today's Communication/Plan
-
cont diuresis
glycemic control
wound care
wean O2 as tolerated
Assessment / Plan
Assessment / Plan
HPI: 68M [facility] PMH chr HfrEF, CAD, DM, and CKD pw fatigue , shortness of breath abdominal distention increased abdominal swelling x 5 weeks.
- Pt reports increased abdominal swelling attributed to CHF.
- Patient reports weight gain from 140 to 190 lbs and states his condition is getting worse every day.
- 'it's uncomfortable','enough is enough', and 'doesn't want to do this anymore'. Pt reports he was previously on furosemide and switched to torsemide roughly 1 week ago.
Assessment/plan:
#Acute heart failure with reduced ejection fraction
#Ascites from heart failure
Previous paracentesis in October 2023
Status post paracentesis draining 5.1 L 12/31/23
Appreciate cardiology input, Lasix 80 mg IV twice daily converted back to home Torsemide 01/03
Trend creatinine, daily weights
Long-term follow-up with Dr. Smith at [facility]
#Moderate left pleural effusion
Consult IR appreciated left thoracentesis performed 01/02 950 cc fluid drained
#Acute kidney injury superimposed on stage IIIb chronic kidney disease
Suspected cardiorenal syndrome
Creatinine improving, continue trend creatinine
#Hyperkalemia
Seems like BASILIO/ARNI stopped in past due to hyperkalemia
5.7 upon admission since improved with potassium restriction and diuresis
potassium restriction diet discontinued, restart if potassium increases again
#Coronary artery disease
Continue aspirin, Plavix, statin, metoprolol
#Type 2 diabetes
A1C 6.2
Patient on Basaglar 8 units at bedtime, Humalog 8 units AC 3 times daily prior to arrival
Basal insulin reduced to 5U d/t episode hypoglycemia, NovoLog AC reduced to 3 units
#Chronic right foot wound
#Chronic right foot pain
Continue oxy, wound care
#Constipation
cont bowel regimen
#Gastroesophageal reflux disease
Continue PPI
DVT prophylaxis�subcu Lovenox
Full code
Total time spent to see the patient on the floor, examine the patient, review data and lab results, discuss treatment plan with patient, nursing staff around 40 minutes.
Physical Exam
General: Appears chronically debilitated no acute distress
HEENT: Normocephalic, Atraumatic, EOMI, MMM
Respiratory: Bibasilar crackles
Cardiac: Normal S1/S2, Regular Rate and Rhythm
GI: Soft, Nontender, mildly distended, Normal Bowel Sounds
Extremities: No Clubbing, Cyanosis
Right lower extremity edema noted
Left BKA noted
Neuro: Nonfocal/Grossly Intact
Psych: Calm, Cooperative
Derm: Right foot wounds dressed
Anticipated Discharge: 24 - 48 hours
Subjective/Interval History
-
Date of Service: January 05, 2024
Objective Data
-
Labs:
Laboratory Results
01/05/24
07:12
WBC Pending
Hgb Pending
Hct Pending
Plt Count Pending
Sodium Pending
Potassium Pending
Chloride Pending
Carbon Dioxide Pending
BUN Pending
Creatinine Pending
Glucose Pending
Calcium Pending
Vital Signs:
Vital Signs
Temp Pulse Resp BP Pulse Ox
98.5 F 72 16 95/55 97
01/04/24 23:45 01/04/24 23:45 01/04/24 23:45 01/04/24 23:45 01/04/24 23:45
I&O
01/04/24 01/05/24 01/06/24
06:59 06:59 06:59
Intake Total 600 / 600 2280 / 2280
Output Total 200 / 200 350 / 350
Balance 400 / 400 1929
[2024-01-05 07:30] VITALS: BP 110/72
[2024-01-05 08:01] LABS: Glucose - Point of Care 89 mg/dl (70-99)
--- NOTE | 2024-01-05 08:01 | W.PN.CD ---
Addendum entered and electronically signed by Calvin Galvan MD (Ellie) 01/05/24 08:16:
Informed by primary team that patient was switched to PO Torsemide 80mg BID yesterday. OK to continue this as long as he is meeting I/O goals (would aim for net neg 500cc to 1L).
Original Note:
Today's Communication / Plan
-
Continue IV Lasix BID
Put patient on telemetry
Impression / Plan
-
HFrEF and ICM EF 25%: [id number].
-agree with diuresis, which requires intensive monitoring
-Labs pending. If stable, Continue IV Lasix 80 mg twice daily
-CHF education, daily weights, I&Os
-Weight is trending down but still with significant edema.
-GDMT with Toprol, Torsemide (at home); treatment limited by hypotension and hyperkalemia (no ACEI/ARNI/MRA)
-Will hold Aldactone for now.
-Long-term follow-up with Dr. Smith at [facility] (has an appointment on 01/10)
-LBBB and LVEF 20% - again offered ICD and possibility of ADHESIVE BONDING MACHINE OPERATOR but patient is not interested.
-Please place patient on telemetry given ongoing aggressive diuresis and history of electrolyte abnormalities
Ascites:
-Status post paracentesis 12/31/23 with 5100ml removed
Pleural effusion:
-Consider thoracentesis, continue IV Lasix
DAVID:
-monitor with diuresis
CAD:
-stable without CP
-continue ASA, statin
PAD with history of L BKA, also more recent history toe amputation:
-on ASA, statin
-per primary
Subjective:
Breathing is more comfortable. Thinks he has a 'few more days' to go of diuresis. Not on telemetry.
Physical Exam
Vital Signs/Labs
Vital Signs
Temp Pulse Resp BP Pulse Ox
98.5 F 66 16 95/55 97
01/04/24 23:45 01/05/24 07:25 01/05/24 07:25 01/04/24 23:45 01/05/24 07:25
01/04/24 01/05/24 01/06/24
06:59 06:59 06:59
Actual Weight 73.964 kg 77.196 kg
PT 15.4 Sec (11.4-14.6) H 12/30/23 15:10
INR 1.22 12/30/23 15:10
Magnesium 2.3 mg/dl (1.6-2.3) 01/04/24 05:57
12/30/23
14:48
Dvd-F-Aesmmhcgepc Pept > 74143
Physical Exam
Constitutional: No acute distress and Comfortable
Cardiovascular: Rhythm & rate is regular, Pedal edema present, JVD present and Murmur/rub/gallop absent
Respiratory: Respiratory effort normal and Lungs clear to auscul.
Data Reviewed
-
Date of Service: January 05, 2024
Medical Decision Making: Reviewed Test Results, Tests Ordered, Independent Historian Assessment, Test Interpretation and Review of Case with other Provider
Echo: Report Reviewed by me
Labs: Labs Reviewed by me
Total Time Spent with Patient (in minutes): 35
[2024-01-05 08:17] LABS: Hematocrit 32.9 % (39.0-52.0); Mean Corp Hgb Conc. 30.4 g/dL (33.0-37.0); Mean Corpuscular Hgb 26.1 pg (27.0-31.0); Mean Corpuscular Volume 85.9 fL (80.0-94.0); Mean Platelet Volume 10.9 fL (7.4-10.4); Platelet Count 107 10^3/uL (130-400); Red Blood Cell Count 3.83 10^6/uL (4.70-6.10); White Blood Cell Count 6.3 10^3/uL (4.8-10.8)
[2024-01-05 08:20] LABS: Glucose - Point of Care 79 mg/dl (70-99)
[2024-01-05] MEDS: NOVOLOG FLEXPEN-LOW RESISTANCE SC ×3 (08:51→16:44)
[2024-01-05] MEDS: NOVOLOG FLEXPEN 8 UNITS SC ×2 (08:52→12:05)
[2024-01-05] MEDS: DUPHALAC/CHRONULAC 20 GRAMS PO (08:54)
[2024-01-05] MEDS: LIPITOR 20 MG PO (08:54)
[2024-01-05] MEDS: MIRALAX 17 GRAMS PO (08:54)
[2024-01-05] MEDS: TOPROL XL 50 MG PO (08:54)
[2024-01-05] MEDS: PROTONIX 40 MG PO (08:54)
[2024-01-05] MEDS: PLAVIX 75 MG PO (08:54)
[2024-01-05] MEDS: VITAMIN D3 (cholecalciferol) 50 MCG PO (08:54)
[2024-01-05] MEDS: ASPIR LOW (ENTERIC COATED) 81 MG PO (08:54)
[2024-01-05] MEDS: DEMADEX 80 MG PO ×2 (08:55→16:43)
[2024-01-05] MEDS: SENOKOT-S 2 TABLET PO ×2 (08:56→20:32)
[2024-01-05] MEDS: COLACE 100 MG PO (08:56)
[2024-01-05] MEDS: HEPARIN 5000 UNITS SC ×2 (08:57→20:23)
[2024-01-05 10:01] LABS: Blood Urea Nitrogen 66 mg/dl (9-20); Calcium 8.5 mg/dl (8.4-10.2); Carbon Dioxide 32 mmol/L (22-30); Chloride 98 mmol/L (98-107); Estimated Creatinine Clearance 58 ml/min; Glucose 74 mg/dl (70-99); Magnesium 2.2 mg/dl (1.6-2.3); Phosphorus 3.4 mg/dl (2.5-4.5); Sodium 136 mmol/L (135-145); eGFR > 60.00
[2024-01-05 11:17] VITALS: BP 100/62
--- NOTE | 2024-01-05 11:26 | WOUNDNOTE ---
ILEOSTOMY AND IR DRAIN
[2024-01-05 12:02] LABS: Glucose - Point of Care 107 mg/dl (70-99)
[2024-01-05] MEDS: OXYCONTIN (CONTROLLED RELEASE) 10 MG PO (12:06)
[2024-01-05 15:39] VITALS: BP 115/73
[2024-01-05 16:41] LABS: Glucose - Point of Care 59 mg/dl (70-99)
[2024-01-05] MEDS: NOVOLOG FLEXPEN SC (16:56)
[2024-01-05 18:10] LABS: Glucose - Point of Care 143 mg/dl (70-99)
[2024-01-05] MEDS: DUPHALAC/CHRONULAC PO (20:32)
[2024-01-05] MEDS: MIRALAX PO (20:33)
[2024-01-05 21:50] LABS: Glucose - Point of Care 193 mg/dl (70-99)
[2024-01-05] MEDS: DESYREL 25 MG PO (21:53)
[2024-01-05] MEDS: DESYREL 100 MG PO (21:54)
[2024-01-05] MEDS: MELATONIN 3 MG PO (21:55)
[2024-01-05] MEDS: LANTUS 0.05 UNITS SC (21:55)
[2024-01-05 23:00] VITALS: BP 105/65
[2024-01-06] VITALS (7 sets, daily range): BP systolic 103–119; BP diastolic 66–75; BMI 23.7
[2024-01-06 06:51] LABS: Hematocrit 31.9 % (39.0-52.0); Hemoglobin 9.7 g/dL (13.0-18.0); Mean Corp Hgb Conc. 30.4 g/dL (33.0-37.0); Mean Corpuscular Hgb 25.8 pg (27.0-31.0); Mean Corpuscular Volume 84.8 fL (80.0-94.0); Mean Platelet Volume 9.9 fL (7.4-10.4); Platelet Count 107 10^3/uL (130-400); Red Blood Cell Count 3.76 10^6/uL (4.70-6.10); Red Cell Dist. Width 18.1 % (11.5-14.5); White Blood Cell Count 6.4 10^3/uL (4.8-10.8)
[2024-01-06 07:16] LABS: Blood Urea Nitrogen 64 mg/dl (9-20); Calcium 8.1 mg/dl (8.4-10.2); Carbon Dioxide 35 mmol/L (22-30); Chloride 96 mmol/L (98-107); Estimated Creatinine Clearance 53 ml/min; Glucose 132 mg/dl (70-99); Magnesium 2.2 mg/dl (1.6-2.3); Phosphorus 3.2 mg/dl (2.5-4.5); Potassium 4.9 mmol/L (3.5-5.1); Sodium 138 mmol/L (135-145); eGFR 59.47
--- NOTE | 2024-01-06 07:30 | W.PN.HOSP.TC ---
Today's Communication/Plan
-
cont diuresis
glycemic control, novolog increased to 5U with increasing sugars noted
wound care
wean O2 as tolerated
Assessment / Plan
Assessment / Plan
HPI: 68M [facility] Res PMH chr HfrEF, CAD, DM, and CKD pw fatigue , shortness of breath abdominal distention increased abdominal swelling x 5 weeks.
- Pt reports increased abdominal swelling attributed to CHF.
- Patient reports weight gain from 140 to 190 lbs and states his condition is getting worse every day.
- 'it's uncomfortable','enough is enough', and 'doesn't want to do this anymore'. Pt reports he was previously on furosemide and switched to torsemide roughly 1 week ago.
Assessment/plan:
#Acute heart failure with reduced ejection fraction
#Ascites from heart failure
#Acute vs Chronic Hypoxic Respiratory Failure due to Heart Failure Reported baseline 3L weaned down to 2L consistently throughout hospitalization
Previous paracentesis in October 2023
Status post paracentesis draining 5.1 L 12/31/23
Appreciate cardiology input, Lasix 80 mg IV twice daily converted back to home Torsemide 01/03
Trend creatinine, daily weights
Long-term follow-up with Dr. Smith at [facility]
#Moderate left pleural effusion
Consult IR appreciated left thoracentesis performed 01/02 950 cc fluid drained
#Acute kidney injury superimposed on stage IIIb chronic kidney disease
Suspected cardiorenal syndrome
Creatinine improving, continue trend creatinine
#Hyperkalemia
Seems like BASILIO/ARNI stopped in past due to hyperkalemia
5.7 upon admission since improved with potassium restriction and diuresis
potassium restriction diet discontinued, restart if potassium increases again
#Coronary artery disease
Continue aspirin, Plavix, statin, metoprolol
#Type 2 diabetes
A1C 6.2
Patient on Basaglar 8 units at bedtime, Humalog 8 units AC 3 times daily prior to arrival
Basal insulin reduced to 5U d/t episode hypoglycemia, NovoLog AC reduced to 3 units increased to 5U with increase in sugars
#Chronic right foot wound
#Chronic right foot pain
Continue oxy, wound care
#Constipation
cont bowel regimen
#Gastroesophageal reflux disease
Continue PPI
DVT prophylaxis�subcu Lovenox
Full code
discussed with patient and patient's son also named Wale
Total time spent to see the patient on the floor, examine the patient, review data and lab results, discuss treatment plan with patient, nursing staff around 40 minutes.
Physical Exam
General: Appears chronically debilitated no acute distress
HEENT: Normocephalic, Atraumatic, EOMI, MMM nasal cannula oxygen supplementation
Respiratory: Bibasilar crackles
Cardiac: Normal S1/S2, Regular Rate and Rhythm
GI: Soft, Nontender, mildly distended, Normal Bowel Sounds
Extremities: No Clubbing, Cyanosis
Right lower extremity edema noted
Left BKA noted
Neuro: Nonfocal/Grossly Intact
Psych: Calm, Cooperative
Derm: Right foot wounds dressed
Anticipated Discharge: Within 24 hours
Subjective/Interval History
-
Date of Service: January 06, 2024
No acute distress. appears well. Remains on oxygen supplementation 2L.
Objective Data
-
Labs:
Laboratory Results
01/06/24
06:21
WBC 6.4
Hgb 9.7 L
Hct 31.9 L
Plt Count 107 L
Sodium 138
Potassium 4.9
Chloride 96 L
Carbon Dioxide 35 H
BUN 64 H
Creatinine 1.3
Glucose 132 H
Calcium 8.1 L
Vital Signs:
Vital Signs
Temp Pulse Resp BP Pulse Ox
98.1 F 70 16 110/70 98
01/06/24 03:30 01/06/24 03:30 01/06/24 03:30 01/06/24 03:30 01/06/24 03:30
I&O
01/05/24 01/06/24 01/07/24
06:59 06:59 06:59
Intake Total 2280 / 2280 900 / 900
Output Total 350 / 350 1025 / 1025
Balance 193 / 1929 -125 / -125
[2024-01-06] MEDS: ProAIR HFA INHALER 2 PUFF INH ×2 (07:43→11:15)
[2024-01-06 07:52] LABS: Glucose - Point of Care 142 mg/dl (70-99)
[2024-01-06] MEDS: NOVOLOG FLEXPEN-LOW RESISTANCE SC ×2 (08:02→17:05)
--- NOTE | 2024-01-06 08:02 | W.PN.CD ---
Today's Communication / Plan
-
-Continue torsemide 80 mg PO twice daily.
-Continue Toprol-XL 50 mg daily.
-Further GDMT limited by hypotension and hyperkalemia (no ACEI/ARNI/MRA); Aldactone discontinued.
-Continue long-term follow-up with Dr. Smith at [facility] (has an appointment on 01/11/24).
-No further cardiac recommendations at this time.
Impression / Plan
-
HFrEF and ICM EF 25%: [id number].
-Continue torsemide 80 mg PO twice daily.
-Continue Toprol-XL 50 mg daily.
-Further GDMT limited by hypotension and hyperkalemia (no ACEI/ARNI/MRA); Aldactone discontinued.
-Continue long-term follow-up with Dr. Smith at [facility] (has an appointment on 01/11/24).
-LBBB and LVEF 20% - again offered ICD and possibility of GENERAL ASSISTANT but patient is not interested.
-Consider SGLT2 inhibitor as outpatient (might be cost-prohibitive for patient).
Ascites:
-Status post paracentesis 12/31/23 with 5100ml removed
Pleural effusion:
-Continue torsemide.
DAVID:
-Renal function relatively stable.
CAD:
-Denies any anginal symptoms.
-continue ASA, statin
PAD with history of L BKA, also more recent history toe amputation:
-Continue ASA, statin
Subjective:
No major events overnight. No cardiac complaints this a.m.
Physical Exam
Vital Signs/Labs
Vital Signs
Temp Pulse Resp BP Pulse Ox
98.1 F 79 16 110/70 98
01/06/24 03:30 01/06/24 07:49 01/06/24 07:49 01/06/24 03:30 01/06/24 07:49
01/05/24 01/06/24 01/07/24
06:59 06:59 06:59
Actual Weight 77.196 kg 72.348 kg
01/06/24 06:21
01/06/24 06:21
PT 15.4 Sec (11.4-14.6) H 12/30/23 15:10
INR 1.22 12/30/23 15:10
Magnesium 2.2 mg/dl (1.6-2.3) 01/06/24 06:21
12/30/23
14:48
Ckb-O-Tiixnbbfkjk Pept > 10254
Physical Exam
Constitutional: No acute distress and Comfortable
EENT: Anicteric
Cardiovascular: Rhythm & rate is regular, Systolic murmur absent, Pedal edema present (trace right leg) and S1S2 is normal
Respiratory: Respiratory effort normal and Lungs clear to auscul. (Anteriorly)
GI: Soft
Neuro/Psych: AO x 3
Data Reviewed
-
Date of Service: January 06, 2024
EKG: Tracing Personally Visualized and interpreted (Telemetry: Sinus rhythm)
Labs: Labs Reviewed by me
[2024-01-06] MEDS: COLACE PO ×2 (08:43→09:14)
[2024-01-06] MEDS: PLAVIX 75 MG PO (08:43)
[2024-01-06] MEDS: ASPIR LOW (ENTERIC COATED) 81 MG PO (08:43)
[2024-01-06] MEDS: VITAMIN D3 (cholecalciferol) 50 MCG PO (08:43)
[2024-01-06] MEDS: DEMADEX 80 MG PO ×2 (08:43→17:11)
[2024-01-06] MEDS: PROTONIX 40 MG PO (08:43)
[2024-01-06] MEDS: LIPITOR 20 MG PO (08:43)
[2024-01-06] MEDS: TOPROL XL 50 MG PO (08:43)
[2024-01-06] MEDS: HEPARIN 5000 UNITS SC ×2 (08:44→19:12)
[2024-01-06] MEDS: MIRALAX PO ×2 (08:44→09:14)
[2024-01-06] MEDS: SENOKOT-S PO ×2 (08:44→09:14)
[2024-01-06] MEDS: DUPHALAC/CHRONULAC PO ×4 (08:45→20:16)
[2024-01-06] MEDS: NOVOLOG FLEXPEN 3 UNITS SC ×3 (09:08→17:11)
[2024-01-06] MEDS: OXYCONTIN (CONTROLLED RELEASE) 10 MG PO (10:46)
[2024-01-06 12:18] LABS: Glucose - Point of Care 203 mg/dl (70-99)
[2024-01-06] MEDS: NOVOLOG FLEXPEN-LOW RESISTANCE 2 UNITS SC (13:17)
[2024-01-06] MEDS: TYLENOL 1000 MG PO (14:00)
--- NOTE | 2024-01-06 15:28 | CM ---
CM reveiewed saeid, no needs at this time. Patient LTC resident at [facility], will update facility when patient stable for discharge. CM will continue to follow for all discharge planning needs.
Plan; return to [facility] when stable.
Harry Hinton:
Report: [phone]
Fax: [phone]
[2024-01-06 17:02] LABS: Glucose - Point of Care 128 mg/dl (70-99)
[2024-01-06] MEDS: SENOKOT-S 2 TABLET PO (19:12)
[2024-01-06] MEDS: MIRALAX 17 GRAMS PO (19:12)
[2024-01-06] MEDS: ROXICODONE 5 MG PO (19:12)
[2024-01-06] MEDS: DESYREL 25 MG PO (22:21)
[2024-01-06 22:22] LABS: Glucose - Point of Care 138 mg/dl (70-99)
[2024-01-06] MEDS: DESYREL 100 MG PO (22:22)
[2024-01-06] MEDS: LANTUS 0.05 UNITS SC (22:22)
[2024-01-06] MEDS: MELATONIN 3 MG PO (22:22)
[2024-01-07] MEDS: TYLENOL 1000 MG PO ×2 (03:58→12:42)
[2024-01-07 04:01] VITALS: BP 110/68
[2024-01-07 06:00] VITALS: BMI 23.3
[2024-01-07 07:00] VITALS: BP 117/69
--- NOTE | 2024-01-07 07:23 | W.PN.HOSP.TC ---
Today's Communication/Plan
-
discontinue court monitor, monitor off
cont glycemic control
diuresis
loosen fluid restriction 40 oz to 48 oz
daily weight I/O
wean O2 as tolerated
Assessment / Plan
Assessment / Plan
HPI: 68M [facility] Res PMH chr HfrEF, CAD, DM, and CKD pw fatigue , shortness of breath abdominal distention increased abdominal swelling x 5 weeks.
- Pt reports increased abdominal swelling attributed to CHF.
- Patient reports weight gain from 140 to 190 lbs and states his condition is getting worse every day.
- 'it's uncomfortable','enough is enough', and 'doesn't want to do this anymore'. Pt reports he was previously on furosemide and switched to torsemide roughly 1 week ago.
Assessment/plan:
#Acute heart failure with reduced ejection fraction
#Ascites from heart failure
#Acute vs Chronic Hypoxic Respiratory Failure due to Heart Failure Reported baseline 3L weaned down to 2L consistently throughout hospitalization further weaned down to 1L
Previous paracentesis in October 2023
Status post paracentesis draining 5.1 L 12/31/23
Appreciate cardiology input, Lasix 80 mg IV twice daily converted back to home Torsemide 01/03
Trend creatinine, daily weights
Long-term follow-up with Dr. Smith at [facility]
01/06 Fluid restrictions loosened from 40 oz to 48 oz per patient request
consistently normal sinus rhythm, ok to discontinue court monitor 01/06 monitor off
#Moderate left pleural effusion
Consult IR appreciated left thoracentesis performed 01/02 950 cc fluid drained
#Acute kidney injury superimposed on stage IIIb chronic kidney disease
Suspected cardiorenal syndrome
Creatinine improving, continue trend creatinine
#Hyperkalemia
Seems like BASILIO/ARNI stopped in past due to hyperkalemia
5.7 upon admission since improved with potassium restriction and diuresis
potassium restriction diet discontinued, restart if potassium increases again
#Coronary artery disease
Continue aspirin, Plavix, statin, metoprolol
#Type 2 diabetes
A1C 6.2
Patient on Basaglar 8 units at bedtime, Humalog 8 units AC 3 times daily prior to arrival
Basal insulin reduced to 5U d/t episode hypoglycemia, NovoLog AC reduced to 3 units increased to 5U with increase in sugars
#Chronic right foot wound
#Chronic right foot pain
Continue oxy, wound care
#Constipation
cont bowel regimen
#Gastroesophageal reflux disease
Continue PPI
DVT prophylaxis�subcu Lovenox
Full code
discussed with patient and patient's son also named Wale
Total time spent to see the patient on the floor, examine the patient, review data and lab results, discuss treatment plan with patient, nursing staff around 40 minutes.
Physical Exam
General: Appears chronically debilitated no acute distress
HEENT: Normocephalic, Atraumatic, EOMI, MMM nasal cannula oxygen supplementation
Respiratory: Bibasilar crackles
Cardiac: Normal S1/S2, Regular Rate and Rhythm
GI: Soft, Nontender, mildly distended, Normal Bowel Sounds
Extremities: No Clubbing, Cyanosis
Right lower extremity edema noted
Left BKA noted
Neuro: Nonfocal/Grossly Intact
Psych: Calm, Cooperative
Derm: Right foot wounds dressed clean dry intact
Anticipated Discharge: 24 - 48 hours
Subjective/Interval History
-
Date of Service: January 07, 2024
No acute distress appears comfortable. Patient asking for loosening of fluid restriction. Discussed the important of complying with diet recommendations and maintaining fluid restrictions due to heart failure.
Objective Data
-
Labs:
Laboratory Results
01/07/24
06:00
WBC Pending
Hgb Pending
Hct Pending
Plt Count Pending
Sodium Pending
Potassium Pending
Chloride Pending
Carbon Dioxide Pending
BUN Pending
Creatinine Pending
Glucose Pending
Calcium Pending
Vital Signs:
Vital Signs
Temp Pulse Resp BP Pulse Ox
97.7 F 69 18 110/68 93
01/07/24 04:01 01/07/24 04:01 01/07/24 04:01 01/07/24 04:01 01/07/24 04:01
I&O
01/06/24 01/07/24 01/08/24
06:59 06:59 06:59
Intake Total 900 / 900 520 / 520
Output Total 1025 / 1025 675 / 675
Balance -125 / -125 -155 / -155
[2024-01-07 07:49] LABS: Glucose - Point of Care 86 mg/dl (70-99)
[2024-01-07] MEDS: NOVOLOG FLEXPEN-LOW RESISTANCE SC ×3 (07:50→16:56)
[2024-01-07] MEDS: NOVOLOG FLEXPEN 5 UNITS SC ×3 (08:39→16:57)
[2024-01-07] MEDS: SENOKOT-S 2 TABLET PO ×2 (08:44→20:12)
[2024-01-07] MEDS: LIPITOR 20 MG PO (08:45)
[2024-01-07] MEDS: VITAMIN D3 (cholecalciferol) 50 MCG PO (08:45)
[2024-01-07] MEDS: PLAVIX 75 MG PO (08:45)
[2024-01-07] MEDS: PROTONIX 40 MG PO (08:45)
[2024-01-07] MEDS: ASPIR LOW (ENTERIC COATED) 81 MG PO (08:45)
[2024-01-07] MEDS: DEMADEX 80 MG PO ×2 (08:45→15:56)
[2024-01-07] MEDS: HEPARIN 5000 UNITS SC ×2 (08:46→20:10)
[2024-01-07] MEDS: TOPROL XL 50 MG PO (08:46)
[2024-01-07] MEDS: DUPHALAC/CHRONULAC 20 GRAMS PO (08:51)
[2024-01-07] MEDS: MIRALAX PO (08:51)
[2024-01-07 08:54] LABS: Hemoglobin 10.6 g/dL (13.0-18.0); Mean Corp Hgb Conc. 30.3 g/dL (33.0-37.0); Mean Corpuscular Hgb 26.4 pg (27.0-31.0); Mean Corpuscular Volume 87.3 fL (80.0-94.0); Mean Platelet Volume 10.3 fL (7.4-10.4); Platelet Count 114 10^3/uL (130-400); Red Blood Cell Count 4.01 10^6/uL (4.70-6.10); Red Cell Dist. Width 17.8 % (11.5-14.5); White Blood Cell Count 6.3 10^3/uL (4.8-10.8)
[2024-01-07] MEDS: COLACE 100 MG PO (08:54)
[2024-01-07 09:26] LABS: Blood Urea Nitrogen 64 mg/dl (9-20); Calcium 8.4 mg/dl (8.4-10.2); Carbon Dioxide 37 mmol/L (22-30); Chloride 96 mmol/L (98-107); Estimated Creatinine Clearance 53 ml/min; Glucose 85 mg/dl (70-99); Magnesium 2.1 mg/dl (1.6-2.3); Phosphorus 3.3 mg/dl (2.5-4.5); Potassium 4.6 mmol/L (3.5-5.1); Sodium 139 mmol/L (135-145); eGFR 59.47
[2024-01-07] MEDS: OXYCONTIN (CONTROLLED RELEASE) PO (10:05)
[2024-01-07 11:00] VITALS: BP 109/73
[2024-01-07 12:06] LABS: Glucose - Point of Care 115 mg/dl (70-99)
--- NOTE | 2024-01-07 14:54 | CM ---
CM reviewed chart, no needs at this time. Patient LTC resident at [facility]. CM spoke with Sheryl in Admissions, will send updates through [facility]. CM will continue to follow for all discharge planning needs.
Plan; return to [facility] when stable.
[facility]:
Report: [phone]
Fax: [phone]
[2024-01-07 15:00] VITALS: BP 106/69
[2024-01-07 16:53] LABS: Glucose - Point of Care 128 mg/dl (70-99)
[2024-01-07 19:00] VITALS: BP 101/61
[2024-01-07] MEDS: DUPHALAC/CHRONULAC PO (20:12)
[2024-01-07] MEDS: DESYREL 100 MG PO (20:14)
[2024-01-07] MEDS: MIRALAX 17 GRAMS PO (20:14)
[2024-01-07] MEDS: DESYREL 25 MG PO (20:14)
[2024-01-07] MEDS: MELATONIN 3 MG PO (20:16)
[2024-01-07 21:20] LABS: Glucose - Point of Care 199 mg/dl (70-99)
[2024-01-07] MEDS: LANTUS 0.05 UNITS SC (21:22)
[2024-01-07 23:00] VITALS: BP 114/73
[2024-01-08 03:41] VITALS: BP 117/74
[2024-01-08 04:34] VITALS: BMI 24.4
[2024-01-08 07:00] VITALS: BP 114/62
[2024-01-08 07:41] LABS: Glucose - Point of Care 106 mg/dl (70-99)
--- NOTE | 2024-01-08 07:48 | W.PN.HOSP.TC ---
Today's Communication/Plan
-
cont diuresis
daily weight I/O
wean O2 as tolerated
Chest US
Abd US
Assessment / Plan
Assessment / Plan
HPI: 68M [facility] Res PMH chr HfrEF, CAD, DM, and CKD pw fatigue , shortness of breath abdominal distention increased abdominal swelling x 5 weeks.
- Pt reports increased abdominal swelling attributed to CHF.
- Patient reports weight gain from 140 to 190 lbs and states his condition is getting worse every day.
- 'it's uncomfortable','enough is enough', and 'doesn't want to do this anymore'. Pt reports he was previously on furosemide and switched to torsemide roughly 1 week ago.
Assessment/plan:
#Acute heart failure with reduced ejection fraction
#Ascites from heart failure
#Acute vs Chronic Hypoxic Respiratory Failure due to Heart Failure Reported baseline 3L weaned down to 2L consistently throughout hospitalization further weaned down to 1L
Previous paracentesis in October 2023
Status post paracentesis draining 5.1 L 12/31/23
Appreciate cardiology input, Lasix 80 mg IV twice daily converted back to home Torsemide 01/03
Trend creatinine, daily weights
Long-term follow-up with Dr. Smith at [facility]
01/06 Fluid restrictions loosened from 40 oz to 48 oz per patient request
consistently normal sinus rhythm, ok to discontinue control systems eng 01/06 monitor off
follow up repeat Abd US
#Moderate left pleural effusion
Consult IR appreciated left thoracentesis performed 01/02 950 cc fluid drained
follow up repeat chest US
#Acute kidney injury superimposed on stage IIIb chronic kidney disease
Suspected cardiorenal syndrome
Creatinine improving, continue trend creatinine
#Hyperkalemia
Seems like BASILIO/ARNI stopped in past due to hyperkalemia
5.7 upon admission since improved with potassium restriction and diuresis
potassium restriction diet discontinued, restart if potassium increases again
#Coronary artery disease
Continue aspirin, Plavix, statin, metoprolol
#Type 2 diabetes
A1C 6.2
Patient on Basaglar 8 units at bedtime, Humalog 8 units AC 3 times daily prior to arrival
Basal insulin reduced to 5U d/t episode hypoglycemia, NovoLog AC reduced to 3 units increased to 5U with increase in sugars
#Chronic right foot wound
#Chronic right foot pain
Continue oxy, wound care
#Constipation
cont bowel regimen
#Gastroesophageal reflux disease
Continue PPI
DVT prophylaxis�subcu Lovenox
Full code
discussed with patient and patient's son also named Wale
Total time spent to see the patient on the floor, examine the patient, review data and lab results, discuss treatment plan with patient, nursing staff around 35 minutes.
Physical Exam
General: Appears chronically debilitated no acute distress
HEENT: Normocephalic, Atraumatic, EOMI, MMM nasal cannula oxygen supplementation
Respiratory: Bibasilar crackles
Cardiac: Normal S1/S2, Regular Rate and Rhythm
GI: Soft, Nontender, mildly distended, Normal Bowel Sounds
Extremities: No Clubbing, Cyanosis
Right lower extremity edema noted
Left BKA noted
Neuro: Nonfocal/Grossly Intact
Psych: Calm, Cooperative
Derm: Right foot wounds dressed clean dry intact
Anticipated Discharge: 24 - 48 hours
Subjective/Interval History
-
Date of Service: January 08, 2024
No acute distress. Appears comfortable. Overall reports feeling well.
Objective Data
-
Vital Signs:
Vital Signs
Temp Pulse Resp BP Pulse Ox
98.1 F 76 20 117/74 91
01/08/24 03:41 01/08/24 03:41 01/08/24 03:41 01/08/24 03:41 01/08/24 03:41
I&O
01/07/24 01/08/24 01/09/24
06:59 06:59 06:59
Intake Total 520 / 520 1010 / 1010
Output Total 675 / 675 175 / 175
Balance -155 / -155 835 / 835
[2024-01-08] MEDS: HEPARIN 5000 UNITS SC ×2 (08:52→21:20)
[2024-01-08] MEDS: PLAVIX 75 MG PO (08:53)
[2024-01-08] MEDS: PROTONIX 40 MG PO (08:53)
[2024-01-08] MEDS: ASPIR LOW (ENTERIC COATED) 81 MG PO (08:53)
[2024-01-08] MEDS: TOPROL XL 50 MG PO (08:53)
[2024-01-08] MEDS: VITAMIN D3 (cholecalciferol) 50 MCG PO (08:53)
[2024-01-08] MEDS: LIPITOR 20 MG PO (08:53)
[2024-01-08] MEDS: SENOKOT-S 2 TABLET PO ×2 (08:53→21:23)
[2024-01-08] MEDS: COLACE 100 MG PO (08:53)
[2024-01-08] MEDS: NOVOLOG FLEXPEN 5 UNITS SC ×3 (08:54→17:26)
[2024-01-08] MEDS: NOVOLOG FLEXPEN-LOW RESISTANCE SC ×2 (08:54→13:10)
[2024-01-08] MEDS: MIRALAX PO (08:55)
[2024-01-08] MEDS: DUPHALAC/CHRONULAC 20 GRAMS PO ×2 (08:55→21:20)
[2024-01-08] MEDS: TYLENOL 1000 MG PO (09:04)
[2024-01-08] MEDS: DEMADEX 80 MG PO ×2 (09:32→15:59)
[2024-01-08] MEDS: ProAIR HFA INHALER 2 PUFF INH (11:10)
[2024-01-08] MEDS: OXYCONTIN (CONTROLLED RELEASE) 10 MG PO (13:09)
[2024-01-08 13:11] LABS: Glucose - Point of Care 114 mg/dl (70-99)
[2024-01-08 15:00] VITALS: BP 125/75
[2024-01-08] MEDS: DULCOLAX 10 MG RECTAL (15:59)
[2024-01-08 17:21] LABS: Glucose - Point of Care 165 mg/dl (70-99)
[2024-01-08] MEDS: NOVOLOG FLEXPEN-LOW RESISTANCE 1 UNITS SC (17:26)
[2024-01-08] MEDS: MIRALAX 17 GRAMS PO (21:21)
[2024-01-08] MEDS: DESYREL 25 MG PO (21:23)
[2024-01-08] MEDS: MELATONIN 3 MG PO (21:24)
[2024-01-08] MEDS: DESYREL 100 MG PO (21:24)
[2024-01-08 21:31] LABS: Glucose - Point of Care 96 mg/dl (70-99)
[2024-01-08] MEDS: LANTUS 0.05 UNITS SC (21:32)
[2024-01-08 23:10] VITALS: BP 124/79
[2024-01-09 06:00] VITALS: BMI 22.8
[2024-01-09 07:03] LABS: Blood Urea Nitrogen 60 mg/dl (9-20); Calcium 8.7 mg/dl (8.4-10.2); Carbon Dioxide 33 mmol/L (22-30); Chloride 97 mmol/L (98-107); Estimated Creatinine Clearance 53 ml/min; Glucose 87 mg/dl (70-99); Magnesium 2.2 mg/dl (1.6-2.3); Phosphorus 3.4 mg/dl (2.5-4.5); Potassium 4.4 mmol/L (3.5-5.1); Sodium 137 mmol/L (135-145); eGFR 59.47
--- NOTE | 2024-01-09 07:14 | W.PN.HOSP.TC ---
Today's Communication/Plan
-
cont diuresis
glycemic control
fluid restriction
Discharge back to SNF tomorrow if remains stable/continues to improve
Assessment / Plan
Assessment / Plan
HPI: 68M [facility] Res PMH chr HfrEF, CAD, DM, and CKD pw fatigue , shortness of breath abdominal distention increased abdominal swelling x 5 weeks.
- Pt reports increased abdominal swelling attributed to CHF.
- Patient reports weight gain from 140 to 190 lbs and states his condition is getting worse every day.
- 'it's uncomfortable','enough is enough', and 'doesn't want to do this anymore'. Pt reports he was previously on furosemide and switched to torsemide roughly 1 week ago.
Assessment/plan:
#Acute heart failure with reduced ejection fraction
#Ascites from heart failure
#Acute vs Chronic Hypoxic Respiratory Failure due to Heart Failure Reported baseline 3L weaned down to 2L consistently throughout hospitalization further weaned down to 1L
Previous paracentesis in October 2023
Status post paracentesis draining 5.1 L 12/31/23
Appreciate cardiology input, Lasix 80 mg IV twice daily converted back to home Torsemide 01/03
Trend creatinine, daily weights
Long-term follow-up with Dr. Smith at [facility]
01/06 Fluid restrictions loosened from 40 oz to 48 oz per patient request
consistently normal sinus rhythm, ok to discontinue outplacement consultant 01/06 monitor off
01/07 repeat Abd US appreciated moderate ascites overall decreased compared to prior study
#Moderate left pleural effusion
Consult IR appreciated left thoracentesis performed 01/02 950 cc fluid drained
01/07 repeat chest US appreciated small bilateral pleural effusions
#Acute kidney injury on CKDIII
Suspected cardiorenal syndrome
Creatinine improved to baseline 1.2-1.3
#Hyperkalemia
BASILIO/ARNI stopped in past due to hyperkalemia
5.7 upon admission since improved with potassium restriction and diuresis
potassium restriction diet discontinued, restart if potassium increases again
resolved
#Coronary artery disease
Continue aspirin, Plavix, statin, metoprolol
#Type 2 diabetes
A1C 6.2
Patient on Basaglar 8 units at bedtime, Humalog 8 units AC 3 times daily prior to arrival
Sugars well controlled with Basal insulin 5U, NovoLog AC 5U
Carb controlled diet
#Chronic right foot wound
#Chronic right foot pain
Continue oxy, wound care
#Constipation
cont bowel regimen
#Gastroesophageal reflux disease
Continue PPI
DVT prophylaxis�subcu Lovenox
Full code
discussed with patient and patient's son also named Wale
Total time spent to see the patient on the floor, examine the patient, review data and lab results, discuss treatment plan with patient, nursing staff around 35 minutes.
Physical Exam
General: Appears chronically debilitated no acute distress
HEENT: Normocephalic, Atraumatic, EOMI, MMM nasal cannula oxygen supplementation
Respiratory: Clear to auscultation b/l
Cardiac: Normal S1/S2, Regular Rate and Rhythm
GI: Soft, Nontender, mildly distended, Normal Bowel Sounds
Extremities: No Clubbing, Cyanosis
Right lower extremity edema noted
Left BKA noted
Neuro: Nonfocal/Grossly Intact
Psych: Calm, Cooperative
Derm: Right foot wounds dressed clean dry intact
Anticipated Discharge: Within 24 hours
Subjective/Interval History
-
Date of Service: January 09, 2024
no acute distress. appears comfortable at this time. O2 weaned down to 1L.
Objective Data
-
Labs:
Laboratory Results
01/09/24 01/09/24
05:38 06:00
WBC Pending
Hgb Pending
Hct Pending
Plt Count Pending
Sodium 137
Potassium 4.4
Chloride 97 L
Carbon Dioxide 33 H
BUN 60 H
Creatinine 1.3
Glucose 87
Calcium 8.7
Vital Signs:
Vital Signs
Temp Pulse Resp BP Pulse Ox
97.6 F 79 19 124/79 97
01/08/24 23:10 01/08/24 23:10 01/08/24 23:10 01/08/24 23:10 01/08/24 23:10
I&O
01/08/24 01/09/24 01/10/24
06:59 06:59 06:59
Intake Total 1010 / 1010 840 / 840
Output Total 175 / 175 200 / 200
Balance 835 / 835 640 / 640
[2024-01-09 07:27] LABS: Glucose - Point of Care 89 mg/dl (70-99)
[2024-01-09] MEDS: NOVOLOG FLEXPEN-LOW RESISTANCE SC ×2 (07:31→16:50)
[2024-01-09 08:03] LABS: Hematocrit 34.3 % (39.0-52.0); Hemoglobin 10.5 g/dL (13.0-18.0); Mean Corp Hgb Conc. 30.6 g/dL (33.0-37.0); Mean Corpuscular Hgb 25.6 pg (27.0-31.0); Mean Corpuscular Volume 83.7 fL (80.0-94.0); Mean Platelet Volume 10.4 fL (7.4-10.4); Platelet Count 129 10^3/uL (130-400); Red Cell Dist. Width 18.1 % (11.5-14.5); White Blood Cell Count 7.6 10^3/uL (4.8-10.8)
[2024-01-09 08:10] VITALS: BP 111/67
[2024-01-09] MEDS: PLAVIX 75 MG PO (08:48)
[2024-01-09] MEDS: DEMADEX 80 MG PO ×2 (08:48→16:50)
[2024-01-09] MEDS: COLACE 100 MG PO (08:48)
[2024-01-09] MEDS: ASPIR LOW (ENTERIC COATED) 81 MG PO (08:48)
[2024-01-09] MEDS: PROTONIX 40 MG PO (08:48)
[2024-01-09] MEDS: VITAMIN D3 (cholecalciferol) 50 MCG PO (08:48)
[2024-01-09] MEDS: LIPITOR 20 MG PO (08:48)
[2024-01-09] MEDS: TOPROL XL 50 MG PO (08:48)
[2024-01-09] MEDS: SENOKOT-S PO (08:49)
[2024-01-09] MEDS: NOVOLOG FLEXPEN 5 UNITS SC ×3 (08:49→16:50)
[2024-01-09] MEDS: HEPARIN 5000 UNITS SC ×2 (08:49→21:28)
[2024-01-09] MEDS: MIRALAX PO ×2 (08:49→21:54)
[2024-01-09] MEDS: DUPHALAC/CHRONULAC PO (08:49)
[2024-01-09 11:15] LABS: Glucose - Point of Care 157 mg/dl (70-99)
[2024-01-09] MEDS: OXYCONTIN (CONTROLLED RELEASE) 10 MG PO (12:00)
[2024-01-09] MEDS: NOVOLOG FLEXPEN-LOW RESISTANCE 1 UNITS SC (12:01)
[2024-01-09 16:03] VITALS: BP 102/65
[2024-01-09 16:22] LABS: Glucose - Point of Care 105 mg/dl (70-99)
[2024-01-09 21:25] LABS: Glucose - Point of Care 84 mg/dl (70-99)
[2024-01-09] MEDS: MELATONIN 3 MG PO (21:37)
[2024-01-09] MEDS: DESYREL 100 MG PO (21:37)
[2024-01-09] MEDS: DESYREL 25 MG PO (21:37)
[2024-01-09] MEDS: DUPHALAC/CHRONULAC 20 GRAMS PO (21:54)
[2024-01-09] MEDS: SENOKOT-S 2 TABLET PO (21:54)
[2024-01-09 23:13] VITALS: BP 116/73
[2024-01-09 23:29] LABS: Glucose - Point of Care 107 mg/dl (70-99)
[2024-01-09] MEDS: LANTUS 0.05 UNITS SC (23:56)
--- NOTE | 2024-01-10 02:45 | PTCARENOTE ---
Wound care completed. Upon assessment of amputated second toe of right foot, remaining part of second toe springer color. Pt reports sensation of remaining part of amputated toe and sensation of all other toes. Positive pulses. Will f/u with wound care
nurse in AM.
[2024-01-10 05:12] VITALS: BMI 22.8
[2024-01-10 07:00] VITALS: BP 122/69
--- NOTE | 2024-01-10 07:13 | W.PN.HOSP.TC ---
Today's Communication/Plan
-
Discharge to [facility] today
Assessment / Plan
Assessment / Plan
HPI: 68M [facility] Res PMH chr HfrEF, CAD, DM, and CKD pw fatigue , shortness of breath abdominal distention increased abdominal swelling x 5 weeks.
- Pt reports increased abdominal swelling attributed to CHF.
- Patient reports weight gain from 140 to 190 lbs and states his condition is getting worse every day.
- 'it's uncomfortable','enough is enough', and 'doesn't want to do this anymore'. Pt reports he was previously on furosemide and switched to torsemide roughly 1 week ago.
Assessment/plan:
#Acute heart failure with reduced ejection fraction
#Ascites from heart failure
#Acute vs Chronic Hypoxic Respiratory Failure due to Heart Failure Reported baseline 3L weaned down to 2L consistently throughout hospitalization further weaned down to 1L
Previous paracentesis in October 2023
Status post paracentesis draining 5.1 L 12/31/23
Appreciate cardiology input, Lasix 80 mg IV twice daily converted back to home Torsemide 01/03
Trend creatinine, daily weights
Long-term follow-up with Dr. Smith at [facility]
01/06 Fluid restrictions loosened from 40 oz to 48 oz per patient request
consistently normal sinus rhythm, ok to discontinue monitor tech 01/06 monitor off
01/07 repeat Abd US appreciated moderate ascites overall decreased compared to prior study
Medically stable for discharge today
#Moderate left pleural effusion
Consult IR appreciated left thoracentesis performed 01/02, 950 cc fluid drained
01/07 repeat chest US appreciated small bilateral pleural effusions
#Acute kidney injury on CKDIII
Suspected cardiorenal syndrome
Creatinine improved to baseline 1.2-1.3
#Hyperkalemia
BASILIO/ARNI stopped in past due to hyperkalemia
5.7 upon admission since improved with potassium restriction and diuresis
potassium restriction diet discontinued, restart if potassium increases again
resolved
#Coronary artery disease
Continue aspirin, Plavix, statin, metoprolol
#Type 2 diabetes
A1C 6.2
Patient on Basaglar 8 units at bedtime, Humalog 8 units AC 3 times daily prior to arrival
Sugars well controlled with Basal insulin 5U, NovoLog AC 5U
Carb controlled diet
#Chronic right foot wound
#Chronic right foot pain
#Recent right second toe amputation 12/07/2023
Sutures removed by me on 01/10/2024
Continue oxy, wound care
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
#Constipation
cont bowel regimen
#Gastroesophageal reflux disease
Continue PPI
DVT prophylaxis�subcu Lovenox
Full code
Physical Exam
General: Appears chronically debilitated no acute distress
HEENT: Normocephalic, Atraumatic, EOMI, MMM nasal cannula oxygen supplementation
Respiratory: Clear to auscultation b/l
Cardiac: Normal S1/S2, Regular Rate and Rhythm
GI: Soft, Nontender, mildly distended, Normal Bowel Sounds
Extremities: No Clubbing, Cyanosis
Right lower extremity edema noted
Left BKA noted
Neuro: Nonfocal/Grossly Intact
Psych: Calm, Cooperative
Derm: Right foot wounds dressed
Anticipated Discharge: Today
Subjective/Interval History
-
Date of Service: January 10, 2024
Patient reports his breathing is labored. No chest pain, shortness of breath, or palpitations. No fever, no vomiting.
Objective Data
-
Labs:
Laboratory Results
01/10/24
07:09
WBC 6.8
Hgb 10.3 L
Hct 34.2 L
Plt Count 130
Sodium 138
Potassium 4.6
Chloride 96 L
Carbon Dioxide 35 H
BUN 59 H
Creatinine 1.4 H
Glucose 96
Calcium 8.4
Vital Signs:
Vital Signs
Temp Pulse Resp BP Pulse Ox
98.2 F 75 18 122/69 95
01/09/24 23:13 01/10/24 07:47 01/09/24 23:13 01/10/24 07:47 01/09/24 23:13
I&O
01/09/24 01/10/24 01/11/24
06:59 06:59 06:59
Intake Total 840 / 840 720 / 720
Output Total 200 / 200 925 / 925
Balance 640 / 640 -205 / -205
--- NOTE | 2024-01-10 07:33 | W.DCSUMMARY ---
Discharge Summary
Discharge Data
Date of Admission: 12/30/23
Date of Discharge: 01/10/24
-
Pending Results: No
Hospital Course
68M [facility] chr HfrEF, CAD, DM, and CKD pw fatigue , shortness of breath abdominal distention increased abdominal swelling x 5 weeks. Acute heart failure with reduced ejection fraction, ascites from heart failure, acute vs chronic
Hypoxic Respiratory Failure due to Heart Failure- reported baseline 3L weaned down to 2L consistently throughout hospitalization further weaned down to 1L prior to discharge- Previous paracentesis in October 2023. Status post paracentesis draining
5.1L 12/31/23. Appreciate cardiology input, Lasix 80 mg IV twice daily was eventually converted back to home Torsemide 01/03. Pt has long-term follow-up with Dr. Smith at [facility]. 01/06 Fluid restrictions loosened from 40 oz to 48 oz
per patient request. 01/07 repeat Abd US appreciated moderate ascites overall decreased compared to prior study. Moderate left pleural effusion, consult IR appreciated left thoracentesis performed 01/02, 950 cc fluid drained. 01/07 repeat chest
US appreciated small bilateral pleural effusions. Acute kidney injury on CKDIII, likely cardiorenal syndrome, creatinine improved to baseline 1.2-1.3 following diuresis. Hyperkalemia, BASILIO/ARNI were stopped in past due to hyperkalemia. K 5.7 upon
admission since improved with potassium restriction, diuresis, and discontinuation home Aldactone. Potassium restriction was lifted once K normalized. Type 2 diabetes, A1C 6.2, Patient on Basaglar 8 units at bedtime, Humalog 8 units AC 3 times
daily prior to arrival
Sugars were well controlled with carb controlled diet, Basal insulin 5U, and NovoLog AC 5U. Home diabetic medication regimen adjusted accordingly. Medically stable, patient was discharged back to SNF with outpatient follow up recommendations.
Discharge Plan
-
Patient Disposition: Custodial/SNF
Discharge Diagnosis/Procedures: Acute heart failure with reduced ejection fraction
Ascites from heart failure
Acute vs Chronic Hypoxic Respiratory Failure
Status post paracentesis draining 5.1 L 12/31/23
Moderate left pleural effusion
Left thoracentesis performed 01/02 950 cc fluid drained
Acute kidney injury on Chronic Kidney Disease stage III
Cardiorenal Syndrome
Hyperkalemia resolved
Coronary artery disease
Type 2 diabetes
Gastroesophageal reflux disease
History Right second toe amputation
Condition: Fair
Diet: Diabetic, Carb Controlled and Restrict fluids to 48 oz
Activity: With assistance and As tolerated
Driving Restrictions: No driving
Blood Work: Repeat CBC and BMP in 1 week of discharge.
Others Tests: Repeat CXR and Abd US with primary care provider in 2 weeks of discharge
Activity Restrictions/Additional Instructions:
Wound Care Instructions Right second toe amputation site- Clean with normal saline, gently pat dry. Apply Xeroform, 4x4 and Gilberto wrapped *NOT TOO TIGHT, to secure gauze. Change Q 48 hours and PRN if loose or soiled.
Keep right foot heel and ankle off-loaded with air cushion or fiber filled boot
Follow up with your primary care provider and roughener in 1 week of discharge. Follow up with your [facility] in 2 weeks of discharge.
Oxycontin 10 mg daily has been prescribed for pain control.
Basaglar and Humalog have both been reduced to 5U because your sugars have been well controlled with long acting insulin 5U bedtime and short acting insulin 5U before meals 3 times a day. This reduction also minimizes risk for hypoglycemia.
Spironolactone has been discontinued due to hyperkalemia. Please follow up with your primary care provider, blow molder, or other healthcare provider involved in your care before considering to resume.
Please take medications as prescribed/recommended and follow up with primary care provider and/or other healthcare provider involved in your care for refills and/or further adjustment to your medication regimen as necessary.
Instructions: *PCP/Other [facility] Heart Failure Instructions
Referrals:
Hai Sorensen MD [Family Provider] - in one week
Prescriptions:
Continued
atorvastatin 20 mg Tablet
20 mg PO DAILY
trazodone 50 mg Tablet
25 mg PO HS
Rx Instructions:
take with 100mg for total of 125 mg
sennosides-docusate sodium 8.6-50 mg Tablet
2 tab-cap PO HS
melatonin 3 mg Tablet
3 mg PO HS
magnesium hydroxide [Milk of Magnesia] 400 mg/5 mL Suspension
30 ml PO [id number] PRN (Reason: no bm 3 days)
trazodone 100 mg Tablet
100 mg PO HS
Rx Instructions:
give with 25mg for total of 125mg
bisacodyl [Dulcolax (bisacodyl)] 10 mg Suppository
10 mg AK DAILYPRN PRN (Reason: no bm after mom)
ferrous sulfate 325 mg (65 mg iron) Tablet
325 mg PO DAILY
docusate sodium [Colace] 100 mg Capsule
100 mg PO DAILY
omeprazole 20 mg Capsule,Delayed Release(Dr/Ec)
20 mg PO DAILY
cholecalciferol (vitamin D3) [Vitamin D3] 25 mcg (1,000 unit) Tablet
50 mcg PO DAILY
aspirin 81 mg Tablet,Delayed Release (Dr/Ec)
81 mg PO DAILY Qty: 0 0RF
polyethylene glycol 3350 [Miralax] 17 gram Powder In Packet
17 g PO DAILYPRN PRN (Reason: constipation)
clopidogrel [Plavix] 75 mg Tablet
75 mg PO DAILY
acetaminophen 500 mg Tablet
1,000 mg PO Q8HPRN PRN (Reason: mild pain)
albuterol sulfate 90 mcg/actuation Hfa Aerosol Inhaler
2 puff INHALATION R QID
oxycodone 5 mg Tablet
5 mg PO Q4HPRN PRN (Reason: severe pain)
torsemide 20 mg tablet
80 mg PO BID
metoprolol succinate 50 mg tablet extended release 24 hr
50 mg PO DAILY
Changed
insulin lispro [Humalog KwikPen Insulin] 100 unit/mL Insulin Pen
5 unit SC AC Qty: 0 0RF
insulin glargine [Basaglar KwikPen U-100 Insulin] 100 unit/mL (3 mL) Insulin Pen
5 unit SC HS Qty: 0 0RF
Discontinued
spironolactone 25 mg Tablet
25 mg PO DAILY
Discharge Orders:
Discharge Patient (As Directed); Ordered 01/10/24
Ordered By: Victoriano Medrano
Discharge Date and Time
Discharge Date/Time: 01/10/24 17:00
Print Language: FRISIAN
[2024-01-10 07:41] LABS: Hematocrit 34.2 % (39.0-52.0); Hemoglobin 10.3 g/dL (13.0-18.0); Mean Corp Hgb Conc. 30.1 g/dL (33.0-37.0); Mean Corpuscular Hgb 25.6 pg (27.0-31.0); Mean Corpuscular Volume 85.1 fL (80.0-94.0); Mean Platelet Volume 10.4 fL (7.4-10.4); Platelet Count 130 10^3/uL (130-400); Red Blood Cell Count 4.02 10^6/uL (4.70-6.10); Red Cell Dist. Width 17.9 % (11.5-14.5); White Blood Cell Count 6.8 10^3/uL (4.8-10.8)
[2024-01-10] MEDS: NOVOLOG FLEXPEN 5 UNITS SC ×3 (07:46→15:26)
[2024-01-10] MEDS: NOVOLOG FLEXPEN-LOW RESISTANCE SC ×3 (07:46→15:28)
[2024-01-10] MEDS: PLAVIX 75 MG PO (07:46)
[2024-01-10] MEDS: PROTONIX 40 MG PO (07:47)
[2024-01-10] MEDS: TOPROL XL 50 MG PO (07:47)
[2024-01-10] MEDS: ASPIR LOW (ENTERIC COATED) 81 MG PO (07:47)
[2024-01-10] MEDS: SENOKOT-S PO (07:48)
[2024-01-10] MEDS: LIPITOR 20 MG PO (07:48)
[2024-01-10] MEDS: MIRALAX PO (07:48)
[2024-01-10] MEDS: HEPARIN 5000 UNITS SC (07:49)
[2024-01-10] MEDS: DUPHALAC/CHRONULAC 20 GRAMS PO (07:49)
[2024-01-10] MEDS: VITAMIN D3 (cholecalciferol) 50 MCG PO (07:49)
[2024-01-10] MEDS: COLACE PO (07:49)
[2024-01-10 07:53] LABS: Glucose - Point of Care 105 mg/dl (70-99)
[2024-01-10 08:15] LABS: Blood Urea Nitrogen 59 mg/dl (9-20); Calcium 8.4 mg/dl (8.4-10.2); Carbon Dioxide 35 mmol/L (22-30); Chloride 96 mmol/L (98-107); Estimated Creatinine Clearance 49 ml/min; Glucose 96 mg/dl (70-99); Magnesium 2.3 mg/dl (1.6-2.3); Phosphorus 3.6 mg/dl (2.5-4.5); Potassium 4.6 mmol/L (3.5-5.1); eGFR 54.41
[2024-01-10 08:20] LABS: Sodium 138 mmol/L (135-145)
[2024-01-10] MEDS: ROXICODONE PO (09:38)
[2024-01-10] MEDS: DEMADEX 80 MG PO ×2 (09:39→15:25)
--- NOTE | 2024-01-10 10:10 | CM ---
Reviewed the chart notes and spoke with the patient. IMM reviewed. 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 CM continues to be available to patient/family and is monitoring medical plan for needs at discharge.
Plan: Discharge back to [facility] when medically stable.
Call report to: [phone]
Fax report to: [phone]
--- NOTE | 2024-01-10 10:42 | WOUNDNOTE ---
R 2ND TOE AMP.
--- NOTE | 2024-01-10 10:43 | WOUNDNOTE ---
R 2ND TOE AMP SITE PLANTAR
--- NOTE | 2024-01-10 10:45 | WOUNDNOTE ---
KING RN NOTE: Followed up with patient as requested, Dr. Medrano at bedside. Patient missed apt for follow up with surgeon, sutures in since 12/07/23. Dr. Medrano removed sutures at bedside, cleaned toe with saline. No S&S of infection noted, serosanguineous
drainage after cleaning, 0.4 depth in distal end, do not palpate bone. Remainder of amp site with dry intact scab. Xeroform and dry dressing applied, Gilberto wrapped loosely to secure gauze. Forefoot discolored, + pedal pulse with Doppler. R medial
foot with intact scab. R lateral heel with thin intact dry scab, suspect abrasion rather than pressure. R knee with dry intact scab, removed dressing left open to air. Patient turned with assist of LIBERTY Holley, patient incontinent of stool, sacrum
intact. Skin care given and brief changed. Scrotum with MASD and patient scratched scrotum. Patient easily bleeds, abdomen with few band aids changed due to bleeding from injection sites. Air cushion on pillow under R leg. Pillow under L BKA.
[2024-01-10] MEDS: OXYCONTIN (CONTROLLED RELEASE) 10 MG PO (10:46)
[2024-01-10 11:31] LABS: Glucose - Point of Care 85 mg/dl (70-99)
[2024-01-10 15:13] LABS: Glucose - Point of Care 86 mg/dl (70-99)
[2024-01-10 15:24] VITALS: BP 119/81
--- NOTE | 2024-01-11 09:36 | W.HF.CON ---
Heart Failure
- LV Function
Left ventricular function study result: LV Ejection fraction </= 35% (ECHO 11/16/23)
Ejection Fraction Percentage: 20-25
- ARNI
Patient already on ARNI: No
Heart Failure ARNI Contraindication: Hyperkalemia, Hypotension
- ACEI/ARB
Patient already on ACEI/ARB: No
Heart Failure ACEI/ARB Contraindication: Hyperkalemia, Hypotension
- Mineralocorticord Receptor Antagonist
Patient already on MRA: No
Heart Failure MRA Contraindication: Hyperkalemia - serum >5, Hypotension
- SGLT-2 Inhibitor
Patient already on SGLT-2 Inhibitor: No
Heart Failure SGLT-2 Inhibitor Contraindication: Patient Refusal
- NYHA CHF Classification
NYHA CHF Classification Level: Class III - Symptoms w/ min exertion, interferes w/ nml daily activity
- ACC/AHA Stage
ACC/AHA Stage: Stage C: Symptomatic Heart Failure
== END 2024-01-10 17:00 | DRG 291 ==
LOC: 4 WEST ACU 17:08
PROVIDERS: Internal Medicine; Radiology Vascular & Interventional Radiology; ADMITTING PHYSICIAN Internal Medicine; ATTENDING PHYSICIAN Family Medicine; CONSULT PHYSICIAN Internal Medicine Cardiovascular Disease; EMERGENCY PHYSICIAN Emergency Medicine; FAMILY PHYSICIAN Family Medicine
PROC: 0W9G3ZZ Drainage of Peritoneal Cavity, Percutaneous Approach (ICD-10-PCS; 2023-12-31)
PROC: 0W9B3ZZ Drainage of Left Pleural Cavity, Percutaneous Approach (ICD-10-PCS; 2024-01-03)
DX: I13.0 Hypertensive heart and chronic kidney disease with heart failure and stage 1 through stage 4 chronic kidney disease, or unspecified chronic kidney disease (principal); I50.23 Acute on chronic systolic (congestive) heart failure; N17.9 Acute kidney failure, unspecified; J98.11 Atelectasis; R18.8 Other ascites; J90 Pleural effusion, not elsewhere classified; N18.32 Chronic kidney disease, stage 3b; E11.22 Type 2 diabetes mellitus with diabetic chronic kidney disease; E11.51 Type 2 diabetes mellitus with diabetic peripheral angiopathy without gangrene; E87.5 Hyperkalemia; I25.5 Ischemic cardiomyopathy; Z66 Do not resuscitate; Z79.4 Long term (current) use of insulin; Z79.82 Long term (current) use of aspirin
CPT/HCPCS: 32555; 49083; 71045; 71046; 76604; 76705; 80048; 80053; 82042; 82150; 82248; 82962; 83036; 83615; 83690; 83735; 83880; 83986; 84100; 84157; 85025; 85027; 85610; 87015; 87070; 87147; 87205; 89051; 93005; 94640; 96374; 99285

== ENCOUNTER 2024-01-14 12:43 | Emergency (ER) | payer MEDICAID, MEDICARE, SELFPAY ==
[2024-01-14 12:48] VITALS: BP 126/83
[2024-01-14 13:00] VITALS: BP 118/80; BP 126/68; BMI 23.5
--- NOTE | 2024-01-14 13:27 | ED.GENMED ---
History of Present Illness
General
Chief Complaint: Abdominal Symptoms
Time Seen by Provider: 01/14/24 13:10
History of Present Illness
History of Present Illness:
68-year-old male presents to the emergency department due to an abnormal outpatient ultrasound performed yesterday. Ultrasounds performed due to the patient's recurrent ascites and he was noted to have thickening of the gallbladder wall concerning
for cholecystitis however the patient denies any abdominal pain at this time. Denies any postprandial symptoms, nausea, or vomiting. No fevers or chills.
Past History
Past History
ED Past Medical History: CHF and IDDM
ED Past Surgical History: Orthopedic
Social History
Tobacco: Non-smoker
Alcohol: None
Drug: None
Living: residential
Employment: Not employed
Family History
Family History: Diabetes
Review of Systems
Review of Systems
Allergies reviewed?: Yes
All Other Systems: ROS reviewed and negative except as documented in HPI and ROS
Phy Exam
Physical Exam
Physical Exam:
GEN: Well appearing, NAD, WDWN
HEENT: Oral mucosa moist, no scleral icterus
Cardiac: Regular rate
Lung: No respiratory distress, no tachypnea
Abdomen: Soft, protuberant abdomen, no focal tenderness, negative Severino sign
MSK: No gross deformity or injuries
Skin: Good color, no pallor or jaundice, no rashes
Neuro: AO x3, moves all extremities freely
Psych: Calm, cooperative
Course
Orders/Labs/Results
Orders:
Orders
01/14/24 13:26
Acetaminophen [Tylenol] 650 mg .ROUTE .STK-MED ONE
Acetaminophen [Tylenol] 650 mg PO NOW STA
01/14/24 13:49
Complete Blood Count/With Diff Urgent
Comprehensive Metabolic Panel Urgent
Abnormal Lab Results
01/14/24
13:49
RBC 4.27 L 10^6/uL
(4.70-6.10)
Hgb 11.0 L g/dL
(13.0-18.0)
Hct 36.4 L %
(39.0-52.0)
MCH 25.8 L pg
(27.0-31.0)
MCHC 30.2 L g/dL
(33.0-37.0)
RDW 18.2 H %
(11.5-14.5)
Absolute Neuts (auto) 7.0 H 10^3/uL
(1.4-6.5)
Absolute Lymphs (auto) 0.6 L 10^3/uL
(1.2-3.4)
Absolute Monos (auto) 0.7 H 10^3/uL
(0.1-0.6)
Neutrophils % 82.5 H %
(42.2-75.2)
Lymphocytes % 6.9 L %
(20.5-51.1)
Chloride 95 L mmol/L
(98-107)
Carbon Dioxide 38 H mmol/L
(22-30)
BUN 63 H mg/dl
(9-20)
Creatinine 1.4 H mg/dL
(0.7-1.3)
Glucose 137 H mg/dl
(70-99)
Alkaline Phosphatase 434 H U/L
(38-126)
01/14/24 13:49
01/14/24 13:49
Vital Signs
Initial and Last Documented VS:
Initial Vital Signs
BP
126/83
01/14/24 12:48
Last Documented Vital Signs
Temp Pulse Resp BP Pulse Ox
97.8 F 67 17 118/80 100
01/14/24 13:00 01/14/24 14:15 01/14/24 14:15 01/14/24 13:00 01/14/24 14:30
MDM/Problems Addressed
MDM/Problems Addressed:
Patient has no evidence of lab abnormalities that would suggest acute cholecystitis. Review of ultrasound from October of this year shows very similar gallbladder wall thickening, as the patient has no pain this is likely all abnormal findings
secondary to ascites and not reflective of acute cholecystitis
*Critical Care Note
Total Time (30-74mins, 75-104mins- exclusive of procedures): Not Applicable
ED Attending Note
-
Portions of this chart may have been created with voice recognition software.� Occasional wrong word or��sound alike� substitutions may have occurred due to the inherent limitations of voice recognition software.
Discharge Plan
Departure
Patient Disposition: Home (Routine Discharge)
Date of Disposition: 01/14/24
Time of Disposition: 14:18
Patient with high blood pressure during this ER visit?: No
Discharge Problem:
Ascites
Instructions: Fluid in the belly (ascites)
Prescriptions:
No Action
atorvastatin 20 mg Tablet
20 mg PO DAILY
trazodone 50 mg Tablet
25 mg PO HS
Rx Instructions:
take with 100mg for total of 125 mg
sennosides-docusate sodium 8.6-50 mg Tablet
2 tab-cap PO HS
melatonin 3 mg Tablet
3 mg PO HS
magnesium hydroxide [Milk of Magnesia] 400 mg/5 mL Suspension
30 ml PO [id number] PRN (Reason: no bm 3 days)
trazodone 100 mg Tablet
100 mg PO HS
Rx Instructions:
give with 25mg for total of 125mg
bisacodyl [Dulcolax (bisacodyl)] 10 mg Suppository
10 mg MA DAILYPRN PRN (Reason: no bm after mom)
ferrous sulfate 325 mg (65 mg iron) Tablet
325 mg PO DAILY
docusate sodium [Colace] 100 mg Capsule
100 mg PO DAILY
omeprazole 20 mg Capsule,Delayed Release(Dr/Ec)
20 mg PO DAILY
cholecalciferol (vitamin D3) [Vitamin D3] 25 mcg (1,000 unit) Tablet
50 mcg PO DAILY
aspirin 81 mg Tablet,Delayed Release (Dr/Ec)
81 mg PO DAILY Qty: 0 0RF
polyethylene glycol 3350 [Miralax] 17 gram Powder In Packet
17 g PO DAILYPRN PRN (Reason: constipation)
clopidogrel [Plavix] 75 mg Tablet
75 mg PO DAILY
acetaminophen 500 mg Tablet
1,000 mg PO Q8HPRN PRN (Reason: mild pain)
albuterol sulfate 90 mcg/actuation Hfa Aerosol Inhaler
2 puff INHALATION R QID
oxycodone 5 mg Tablet
5 mg PO Q4HPRN PRN (Reason: severe pain)
torsemide 20 mg tablet
80 mg PO BID
metoprolol succinate 50 mg tablet extended release 24 hr
50 mg PO DAILY
insulin lispro [Humalog KwikPen Insulin] 100 unit/mL Insulin Pen
5 unit SC AC Qty: 0 0RF
insulin glargine [Basaglar KwikPen U-100 Insulin] 100 unit/mL (3 mL) Insulin Pen
5 unit SC HS Qty: 0 0RF
Referrals:
Hai Sorensen MD [Family Provider] -
Activity Restrictions/Additional Instructions:
Wale does not have cholecystitis. His gallbladder wall thickening seen on ultrasound is comparable to his ultrasound from October. His white blood cells and liver enzymes are normal. The wall thickening is a product of his generalized ascites.
Interventions
Interventions:
*Risk Screen - Suicide Last Done: 01/14/24 13:03
*Neglect/Abuse Screening Last Done: 01/14/24 13:02
ED- Fall Risk Assessment Last Done: 01/14/24 13:39
*ED COVID-19 Vaccine History Last Done: 01/14/24 13:02
*Nursing Disposition Last Done: 01/14/24 14:57
HY-Rthogg-Eirxjchzui Assessment Last Done: 01/14/24 13:06
Discharge Date and Time
Discharge Date/Time: 01/14/24 16:36
Print Language: GEORGIAN
[2024-01-14] MEDS: TYLENOL 650 MG PO (13:36)
[2024-01-14 13:59] LABS: % Basophils 0.5 % (0-2); % Eosinophils 1.8 % (0-6); % Immature Granulocytes 0.4 % (0-0.5); % Lymphocytes 6.9 % (20.5-51.1); % Monocytes 7.9 % (1.7-9.3); % Neutrophils 82.5 % (42.2-75.2); Absolute Eosinophils 0.2 10^3/uL (0-0.7); Absolute Lymphocytes 0.6 10^3/uL (1.2-3.4); Absolute Monocytes 0.7 10^3/uL (0.1-0.6); Hematocrit 36.4 % (39.0-52.0); Mean Corp Hgb Conc. 30.2 g/dL (33.0-37.0); Mean Corpuscular Hgb 25.8 pg (27.0-31.0); Mean Corpuscular Volume 85.2 fL (80.0-94.0); Mean Platelet Volume 9.7 fL (7.4-10.4); Nucleated Red Blood Cells % 0 % (-); Platelet Count 131 10^3/uL (130-400); Red Blood Cell Count 4.27 10^6/uL (4.70-6.10); Red Cell Dist. Width 18.2 % (11.5-14.5); White Blood Cell Count 8.5 10^3/uL (4.8-10.8)
[2024-01-14 14:15] LABS: ALT (SGPT) 18 U/L (0-50); AST (SGOT) 47 U/L (17-59); Albumin 3.6 g/dl (3.5-5.0); Alkaline Phosphatase 434 U/L (38-126); Blood Urea Nitrogen 63 mg/dl (9-20); Calcium 8.5 mg/dl (8.4-10.2); Carbon Dioxide 38 mmol/L (22-30); Chloride 95 mmol/L (98-107); Estimated Creatinine Clearance 49 ml/min; Glucose 137 mg/dl (70-99); Sodium 138 mmol/L (135-145); Total Bilirubin 1.2 mg/dl (0.2-1.3); Total Protein 7.3 g/dl (6.3-8.2); eGFR 54.41
== END 2024-01-14 16:36 | disposition home or self-care (01) ==
LOC: EMR 12:43
PROVIDERS: Physician Assistant; EMERGENCY PHYSICIAN Student in an Organized Health Care Education/Training Program; FAMILY PHYSICIAN Family Medicine
DX: R93.5 Abnormal findings on diagnostic imaging of other abdominal regions, including retroperitoneum (principal); R18.8 Other ascites; K82.8 Other specified diseases of gallbladder; I50.9 Heart failure, unspecified; E11.9 Type 2 diabetes mellitus without complications; Z79.4 Long term (current) use of insulin; Z79.82 Long term (current) use of aspirin
CPT/HCPCS: 99283; 80053; 85025